=== PATIENT | male | born 1955 | race American Indian/Alaskan Native ===

== ENCOUNTER 2019-09-25 14:48 | Inpatient (IN) | payer OTHER ==
--- NOTE | 2019-09-25 15:18 | Emergency Department Report ---
ED Neuro Deficit HPI - General Chief Complaint: Neuro Symptoms/Deficit Stated Complaint: POSS STROKE Time Seen by Provider: 09/25/19 15:10 Source: patient, EMS Mode of arrival: Stretcher Limitations: Altered Mental Status - History of Present Illness Initial Comments: [facility] Tele[facility]urology Consult Services Date of Service: 09/25/2019 14:44:33 Impression: Rule Out Acute Ischemic Stroke Comments/Sign-Out: Patients clinical features are compatible with diagnosis of acute ischemic stroke. Recommend completing stroke celestin . Pt not in time window for tPA or intervention. CTH suspicious of focal hyperdensity in the left MCA Mechanism of Stroke: Not Clear Metrics: Last Known Well: Unknown [facility] Notification Time: 09/25/2019 14:44:02 Arrival Time: 09/25/2019 14:55:28 Stamp Time: 09/25/2019 14:44:33 Time First Login Attempt: 09/25/2019 14:46:37 Video Start Time: 09/25/2019 14:46:37 Symptoms: rt arm drift, dizziness NIHSS Start Assessment Time: 09/25/2019 15:12:40 Patient is not a candidate for tPA. Patient was not deemed candidate for tPA thrombolytics because of Last Well Known Above 4.5 Hours. Video End Time: 09/25/2019 15:13:21 CT head showed no acute hemorrhage or acute core infarct. Lower Likelihood of Large Vessel Occlusion but Following Stat Studies are Recommended CTA Head and Neck. CT Perfusion. Advanced Imaging to be Reviewed by ED Provider and [facility]. Radiologist was not called back for review of advanced imaging because NA ED Physician notified of diagnostic impression and management plan on 09/25/2019 15:13:18 Our recommendations are outlined below. Recommendations: Activate Stroke Protocol Admission/Order Set Stroke/Telemetry Floor Neuro Checks Bedside Swallow Eval DVT Prophylaxis IV Fluids, Normal Saline Head of Bed 30 Degrees Euglycemia and Avoid Hyperthermia (PRN Acetaminophen) Antiplatelet Therapy Recommended Routine Consultation with Inhouse Neurology for Follow up Care Sign Out: Discussed with Emergency Department Provider History of Present Illness: Patient is a 64 year old Male. Patient was brought by EMS for symptoms of rt arm drift, dizziness Patient seen in ED Pt in transit at time of login Information obtained from EMS and patient h/o HTN, pt has not been taking any medications Chronology: Pt felt dizzy at 11:00 am, and fell from standing postion at the time of EMS arrival pt c/o Rt arm weakness and numbness and slurres speech. EMS noted that pt had a rt arm drift Pt during interview mentions that the rt arm weakness developed >2 days ago LKW >48 hrs Medications: no known meds BP:191/134 Blood glucose: 81 Last seen normal was beyond 4.5 hours of presentation. There is no history of hemorrhagic complications or intracranial hemorrhage. There is no history of Recent Anticoagulants. There is no history of recent major surgery. There is no history of recent stroke. Examination: 1A: Level of Consciousness - Alert; keenly responsive + 0 1B: Ask Month and Age - Both Questions Right + 0 1C: Blink Eyes & Squeeze Hands - Performs Both Tasks + 0 2: Test Horizontal Extraocular Movements - Normal + 0 3: Test Visual Del Real - No Visual Loss + 0 4: Test Facial Palsy (Use Grimace if Obtunded) - Normal symmetry + 0 5A: Test Left Arm Motor Drift - No Drift for 10 Seconds + 0 5B: Test Right Arm Motor Drift - Drift, but doesn't hit bed + 1 6A: Test Left Leg Motor Drift - No Drift for 5 Seconds + 0 6B: Test Right Leg Motor Drift - No Drift for 5 Seconds + 0 7: Test Limb Ataxia (FNF/Heel-Rey) - No Ataxia + 0 8: Test Sensation - Normal; No sensory loss + 0 9: Test Language/Aphasia - Normal; No aphasia + 0 10: Test Dysarthria - Normal + 0 11: Test Extinction/Inattention - No abnormality + 0 NIHSS Score: 1 Patient/Family was informed the Neurology Consult would happen via TeleHealth consult by way of interactive audio and video telecommunications and consented to receiving care in this manner. Due to the immediate potential for life-threatening deterioration due to underlying acute neurologic illness, I spent 35 minutes providing critical care. This time includes time for face to face visit via telemedicine, review of medical records, imaging studies and discussion of findings with providers, the patient and/or family. Dr Dasha Mcfarland [facility] Case [id number] - Related Data Home Medications: Previous Rx's Medication Instructions Recorded Last Taken Type amLODIPine 5 mg PO DAILY 90 Days #90 tab 18 Unknown Rx hydroCHLOROthiazide [HCTZ] 25 mg PO QDAY 90 Days #90 tablet 18 Unknown Rx Allergies/Adverse Reactions: Allergies Allergy/AdvReac Type Severity Reaction Status Date / Time No Known Allergies Allergy Verified 02/05/16 08:57 ED Review of Systems ROS: Stated complaint: POSS STROKE Other details as noted in HPI ED Past Medical Hx - Past Medical History Hx Hypertension: Yes Hx Seizures: Yes - Surgical History Additional Surgical History: Left hand surgery, "tendons" - Social History Smoking Status: Current Every Day Smoker Substance Use Type: Alcohol - Medications Home Medications: Home Medications Medication Instructions Recorded Confirmed Last Taken Type amLODIPine 5 mg PO DAILY 90 Days #90 tab 02/13/18 Unknown Rx hydroCHLOROthiazide [HCTZ] 25 mg PO QDAY 90 Days #90 tablet 02/13/18 Unknown Rx ED Neuro Physical Exam - General Limitations: Altered Mental Status Suspected Stroke: Yes - NIHSS Assessment Interval: 24 hours post onset of symptoms +-20 minutes 1a. Level of Consciousness: alert/keenly responsive 1b. LOC Questions: answers both correctly 1c. LOC Commands: performs tasks correctly 2. Best Gaze: normal 3. Visual: no visual loss 4. Facial Palsy: normal symmetrical movement 5b. Motor Arm Right: drift 5a. Motor Arm Left: no drift 6a. Motor Leg Left: no drift 6b. Motor Leg Right: no drift 7. Limb Ataxia: absent 8. Sensory: normal 9. Best Language: no aphasia 10. Dysarthria: normal 11. Extinction/Inattention: no abnormality Total Score: 1 Stroke Severity: Minor Stroke Critical care attestation.: If time is entered above; I have spent that time in minutes in the direct care of this critically ill patient, excluding procedure time. ED Disposition Clinical Impression: Stroke Disposition: OP ADMIT IP TO THIS HOSP Is pt being admited?: Yes Does the pt Need Aspirin: Yes Condition: Stable Time of Disposition: 15:20
--- NOTE | 2019-09-25 15:19 | Cat Scan Report ---
CT HEAD WITHOUT CONTRAST INDICATION : neuro deficits <6hrs or sx present upon awakening. TECHNIQUE: Axial imaging performed from the skull apex through the skull base without the use of con trast. Sagittal and coronal reformatted images. All CT scans at this location are performed using C T dose reduction for ALARA by means of automated exposure control. COMPARISON: None FINDINGS: Parenchyma: No acute parenchymal abnormality or intracranial hemorrhage is appreciated. Multiple chr onic lacunar infarcts are identified in both basal ganglia and left posterior frontal white matter. I question if there could be minimal hyperdensity in the proximal left MCA on axial image 13 which may represent partial thrombosis. Ventricles: Ventricles are normal in size and appear symmetric. Bones: No acute osseous abnormality. Sinuses: Sinuses and mastoid air cells are clear. Soft tissues: Soft tissues including the orbits appear normal. IMPRESSION: No acute hemorrhage or large acute parenchymal abnormality is appreciated. Chronic lacuna r infarcts as described. Question minimal hyperdensity in the proximal left MCA as described. If furt her imaging is required, MRI could be obtained. These findings were discussed with Dr. Rsoario in the emergency department at 1512 hours EST. Signer Name: Jason Chowdhury Jr, MD Signed: 09/25/2019 3:15 PM Workstation Name: [id number]
--- NOTE | 2019-09-25 15:21 | Emergency Department Report ---
ED Neuro Deficit HPI - General Chief Complaint: Neuro Symptoms/Deficit Stated Complaint: POSS STROKE Time Seen by Provider: 09/25/19 15:10 Source: patient, EMS Mode of arrival: Stretcher Limitations: Altered Mental Status - History of Present Illness Initial Comments: 64-year-old male, history of hypertension, noncompliant with BP meds x2 months, presents to ED with right-sided weakness. Upon initial arrival, EMS reported that patient became symptomatic at 11:30 this morning. Upon speaking with tele- neurologist, it was discovered that patient has actually had right-sided weakness x2 days. Patient reports feeling dizzy this morning. Patient's family came over to check on him and found him on the floor with slurred speech. Patient presents as a stroke alert to the ED. -: days(s) (2) Location: speech, left arm, left leg Presenting Symptoms: Present: Weak/Paralyzed One Side History of same: No Place: home Severity: moderate Quality: weak Improves With: none Worsens With: none On Anticoagulants: No Associated Symptoms: denies other symptoms. denies: chest pain, headaches - Related Data Home Medications: Previous Rx's Medication Instructions Recorded Last Taken Type amLODIPine 5 mg PO DAILY 90 Days #90 tab 02/13/18 Unknown Rx hydroCHLOROthiazide [HCTZ] 25 mg PO QDAY 90 Days #90 tablet 02/13/18 Unknown Rx Allergies/Adverse Reactions: Allergies Allergy/AdvReac Type Severity Reaction Status Date / Time No Known Allergies Allergy Verified 02/05/16 08:57 ED Review of Systems ROS: Stated complaint: POSS STROKE Other details as noted in HPI Comment: All other systems reviewed and negative Constitutional: denies: chills, fever Respiratory: denies: shortness of breath Cardiovascular: denies: chest pain Gastrointestinal: denies: vomiting, diarrhea Neurological: weakness. denies: headache ED Past Medical Hx - Past Medical History Hx Hypertension: Yes Hx Seizures: Yes - Surgical History Additional Surgical History: Left hand surgery, "tendons" - Social History Smoking Status: Current Every Day Smoker Substance Use Type: Alcohol - Medications Home Medications: Home Medications Medication Instructions Recorded Confirmed Last Taken Type amLODIPine 5 mg PO DAILY 90 Days #90 tab 18 Unknown Rx hydroCHLOROthiazide [HCTZ] 25 mg PO QDAY 90 Days #90 tablet 18 Unknown Rx ED Neuro Physical Exam - General Limitations: Altered Mental Status General appearance: alert, in no apparent distress Suspected Stroke: Yes - Head Head exam: Present: atraumatic, normocephalic - Eye Eye exam: Present: normal appearance, EOMI - ENT ENT exam: Present: mucous membranes moist - Neck Neck exam: Present: normal inspection - Respiratory Respiratory exam: Present: normal lung sounds bilaterally. Absent: respiratory distress - Cardiovascular Cardiovascular Exam: Present: regular rate, normal rhythm - GI/Abdominal GI/Abdominal exam: Present: soft. Absent: distended, tenderness - Extremities Exam Extremities exam: Present: normal inspection - Neurological Exam Neurological exam: Present: alert, oriented X3 - NIHSS Assessment Interval: Baseline 1a. Level of Consciousness: alert/keenly responsive 1b. LOC Questions: answers both correctly 1c. LOC Commands: performs tasks correctly 2. Best Gaze: normal 3. Visual: no visual loss 4. Facial Palsy: minor paralysis 5b. Motor Arm Right: drift 5a. Motor Arm Left: no drift 6a. Motor Leg Left: no drift 6b. Motor Leg Right: drift 7. Limb Ataxia: absent 8. Sensory: normal 9. Best Language: no aphasia 10. Dysarthria: normal 11. Extinction/Inattention: no abnormality Total Score: 3 Stroke Severity: Minor Stroke - Psychiatric Psychiatric exam: Present: normal affect, normal mood - Skin Skin exam: Present: warm, dry, intact, normal color ED Course Vital Signs 09/25/19 09/25/19 09/25/19 15:12 15:15 15:22 Temperature 98.2 F Pulse Rate 82 82 Respiratory 14 19 Rate Blood Pressure 209/119 Blood Pressure 209/119 [Right] O2 Sat by Pulse 98 96 98 Oximetry 09/25/19 09/25/19 09/25/19 15:30 15:46 16:00 Temperature Pulse Rate 82 74 74 Respiratory 15 17 15 Rate Blood Pressure 188/125 188/125 190/121 Blood Pressure [Right] O2 Sat by Pulse 97 99 100 Oximetry 09/25/19 18:08 Temperature Pulse Rate 72 Respiratory Rate Blood Pressure 177/107 Blood Pressure [Right] O2 Sat by Pulse Oximetry - Lab Data Result diagrams: 09/25/19 15:07 09/25/19 15:07 Lab Results 09/25/19 09/25/19 09/25/19 Range/Units 15:07 15:07 15:07 WBC 7.6 (4.5-11.0) K/mm3 RBC 4.62 (3.65-5.03) M/mm3 Hgb 13.8 (11.8-15.2) gm/dl Hct 41.4 (35.5-45.6) % MCV 90 (84-94) fl MCH 30 (28-32) pg MCHC 33 (32-34) % RDW 15.8 H (13.2-15.2) % Plt Count 125 L (140-440) K/mm3 Lymph % (Auto) 8.6 L (13.4-35.0) % Warren % (Auto) 6.8 (0.0-7.3) % Eos % (Auto) 4.2 (0.0-4.3) % Baso % (Auto) 0.6 (0.0-1.8) % Lymph # 0.7 L (1.2-5.4) K/mm3 Warren # 0.5 (0.0-0.8) K/mm3 Eos # 0.3 (0.0-0.4) K/mm3 Baso # 0.0 (0.0-0.1) K/mm3 Seg Neutrophils % 79.8 H (40.0-70.0) % Seg Neutrophils # 6.1 (1.8-7.7) K/mm3 PT 14.2 (12.2-14.9) Sec. INR 1.08 (0.87-1.13) APTT 30.0 (24.2-36.6) Sec. Thrombin Time (15.1-19.6) Sec. Sodium 142 (137-145) mmol/L Potassium 4.3 (3.6-5.0) mmol/L Chloride 107.1 H (98-107) mmol/L Carbon Dioxide 22 (22-30) mmol/L Anion Gap 17 mmol/L BUN 9 (9-20) mg/dL Creatinine 1.6 H (0.8-1.5) mg/dL Estimated GFR 53 ml/min BUN/Creatinine Ratio 6 % Glucose 95 (75-100) mg/dL POC Glucose (70-105) Calcium 9.7 (8.4-10.2) mg/dL Troponin T < 0.010 (0.00-0.029) ng/mL 07/28/20 07/28/20 Range/Units 15:07 15:41 WBC (4.5-11.0) K/mm3 RBC (3.65-5.03) M/mm3 Hgb (11.8-15.2) gm/dl Hct (35.5-45.6) % MCV (84-94) fl MCH (28-32) pg MCHC (32-34) % RDW (13.2-15.2) % Plt Count (140-440) K/mm3 Lymph % (Auto) (13.4-35.0) % Warren % (Auto) (0.0-7.3) % Eos % (Auto) (0.0-4.3) % Baso % (Auto) (0.0-1.8) % Lymph # (1.2-5.4) K/mm3 Warren # (0.0-0.8) K/mm3 Eos # (0.0-0.4) K/mm3 Baso # (0.0-0.1) K/mm3 Seg Neutrophils % (40.0-70.0) % Seg Neutrophils # (1.8-7.7) K/mm3 PT (12.2-14.9) Sec. INR (0.87-1.13) APTT (24.2-36.6) Sec. Thrombin Time 17.8 (15.1-19.6) Sec. Sodium (137-145) mmol/L Potassium (3.6-5.0) mmol/L Chloride (98-107) mmol/L Carbon Dioxide (22-30) mmol/L Anion Gap mmol/L BUN (9-20) mg/dL Creatinine (0.8-1.5) mg/dL Estimated GFR ml/min BUN/Creatinine Ratio % Glucose (75-100) mg/dL POC Glucose 87 (70-105) Calcium (8.4-10.2) mg/dL Troponin T (0.00-0.029) ng/mL - EKG Data -: EKG Interpreted by Co EKG shows normal: sinus rhythm, axis, intervals, QRS complexes Rate: normal Interpretation: other (T wave inversions V3-6, I, II, aVL) - Radiology Data Radiology results: report reviewed, image reviewed - Medical Decision Making 64-year-old male with acute CVA with right-sided deficits. Patient presented outside the window for TPA or any interventional procedure. CT head was unremarkable. Blood pressure elevated, labetalol was given. Patient will be admitted by Dr. Booth, hospitalist, for further stroke work-up. - Differential Diagnosis Hemorrhagic CVA, ischemic CVA, seizure Critical care attestation.: If time is entered above; I have spent that time in minutes in the direct care of this critically ill patient, excluding procedure time. ED Disposition Clinical Impression: Stroke, Uncontrolled hypertension Disposition: OP ADMIT IP TO THIS HOSP Is pt being admited?: Yes Condition: Stable Time of Disposition: 16:16
[2019-09-25] MEDS ORDERED: ASPIRIN 325 MG TAB PO ONE (15:35)
[2019-09-25 15:45] LABS: BUN/Creatinine Ratio 6; Blood Urea Nitrogen 9 mg/dL (9-20); Calcium 9.7 mg/dL (8.4-10.2); Hemolysis Index 3
[2019-09-25 15:49] LABS: Basophils % (Auto) 0.6 % (0.0-1.8); Eosinophils # (Auto) 0.3 K/mm3 (0.0-0.4); Eosinophils % (Auto) 4.2 % (0.0-4.3); Hematocrit 41.4 % (35.5-45.6); Hemoglobin 13.8 gm/dl (11.8-15.2); Lymphocytes # (Auto) 0.7 K/mm3 (1.2-5.4); Lymphocytes % (Auto) 8.6 % (13.4-35.0); Mean Corpuscular HGB Conc 33 % (32-34); Mean Corpuscular Volume 90 fl (84-94); Monocytes # (Auto) 0.5 K/mm3 (0.0-0.8); Monocytes % (Auto) 6.8 % (0.0-7.3); Platelet Count 125 K/mm3 (140-440); Red Blood Count 4.62 M/mm3 (3.65-5.03); Red Cell Distribution Width 15.8 % (13.2-15.2)
--- NOTE | 2019-09-25 16:09 | XRay Report ---
CHEST 1 VIEW INDICATION: weakness. COMPARISON: None FINDINGS: Support devices: None. Heart: Within normal limits. Lungs/Pleura: No acute air space or interstitial disease. Additional findings: None. IMPRESSION: No acute findings. Signer Name: Jason Chowdhury Jr, MD Signed: 09/25/2019 4:04 PM Workstation Name: [id number]
[2019-09-25 16:14] LABS: INR 1.08 (0.87-1.13)
--- NOTE | 2019-09-25 23:55 | History and Physical Report ---
History of Present Illness Date of examination: 09/25/19 Date of admission: 09/25/19 16:17 Chief complaint: Rt sided weakness 2 days History of present illness: 64-year-old male with history of hypertension noncompliant with his blood pressure medication comes in for right-sided weakness of 2 days duration. Patient reports feeling dizzy this morning. Patient family checked on him today and found him on the floor with slurred speech and right-sided weakness. This happened 48 hours ago. Patient is outside the window for TPA. Patient has persistent right-sided weakness. - Past Medical History Hx Hypertension: Yes Hx Seizures: Yes - Surgical History Additional Surgical History: Left hand surgery, "tendons" - Social History Smoking Status: Current Every Day Smoker Substance Use Type: Alcohol - Medications Home Medications: Family History Htn Home Medications Medication Instructions Recorded Confirmed Last Taken Type amLODIPine 5 mg PO DAILY 90 Days #90 tab 02/13/18 Unknown Rx hydroCHLOROthiazide [HCTZ] 25 mg PO QDAY 90 Days #90 tablet 02/13/18 Unknown Rx Review of Systems ROS: Stated complaint: POSS STROKE Other details as noted in HPI Comment: All other systems reviewed and negative Constitutional: denies: chills, fever Respiratory: denies: shortness of breath Cardiovascular: denies: chest pain Gastrointestinal: denies: vomiting, diarrhea Neurological: weakness. denies: headache Medications and Allergies Allergies Allergy/AdvReac Type Severity Reaction Status Date / Time No Known Allergies Allergy Verified 02/05/16 08:57 Home Medications Medication Instructions Recorded Confirmed Last Taken Type amLODIPine 5 mg PO DAILY 90 Days #90 tab 02/13/18 09/26/19 Unknown Rx hydroCHLOROthiazide [HCTZ] 25 mg PO QDAY 90 Days #90 tablet 02/13/18 09/26/19 Unknown Rx Exam - Constitutional Vitals: Temp Pulse Resp BP Pulse Ox 98.2 F 60 18 187/107 95 09/25/19 23:22 09/25/19 23:26 09/25/19 23:22 09/25/19 23:26 09/25/19 23:22 General appearance: Present: no acute distress, well-nourished - EENT Eyes: Present: PERRL ENT: hearing intact, clear oral mucosa - Neck Neck: Present: supple, normal ROM - Respiratory Respiratory effort: normal Respiratory: bilateral: CTA - Cardiovascular Heart rate: 78 Heart Sounds: Present: S1 & S2. Absent: rub, click - Extremities Extremities: pulses symmetrical, No edema Peripheral Pulses: within normal limits - Abdominal General gastrointestinal: Present: soft, non-tender, non-distended, normal bowel sounds Male genitourinary: Present: normal - Integumentary Integumentary: Present: clear, warm, dry - Musculoskeletal Musculoskeletal: strength equal bilaterally, right sided weakness - Psychiatric Psychiatric: appropriate mood/affect, intact judgment & insight - Neurologic Neurologic: CNII-XII intact, focal deficits (Rt hemiplegia), moves all extremities HEART Score - HEART Score History: Moderately suspicious Age: 45-65 Troponin: Troponin T < 0.010 ng/mL (0.00-0.029) 09/25/19 15:07 - Critical Actions Critical Actions: 4-6 pts:12-16.6% risk of adverse cardiac event. Should be admitted Results - Labs CBC & Chem 7: 09/25/19 15:07 09/25/19 15:07 Labs: Laboratory Last Values WBC 7.6 K/mm3 (4.5-11.0) 09/25/19 15:07 RBC 4.62 M/mm3 (3.65-5.03) 09/25/19 15:07 Hgb 13.8 gm/dl (11.8-15.2) 09/25/19 15:07 Hct 41.4 % (35.5-45.6) 09/25/19 15:07 MCV 90 fl (84-94) 09/25/19 15:07 MCH 30 pg (28-32) 09/25/19 15:07 MCHC 33 % (32-34) 09/25/19 15:07 RDW 15.8 % (13.2-15.2) H 09/25/19 15:07 Plt Count 125 K/mm3 (140-440) L 09/25/19 15:07 Lymph % (Auto) 8.6 % (13.4-35.0) L 09/25/19 15:07 Douglas % (Auto) 6.8 % (0.0-7.3) 09/25/19 15:07 Eos % (Auto) 4.2 % (0.0-4.3) 09/25/19 15:07 Baso % (Auto) 0.6 % (0.0-1.8) 09/25/19 15:07 Lymph # 0.7 K/mm3 (1.2-5.4) L 09/25/19 15:07 Douglas # 0.5 K/mm3 (0.0-0.8) 09/25/19 15:07 Eos # 0.3 K/mm3 (0.0-0.4) 09/25/19 15:07 Baso # 0.0 K/mm3 (0.0-0.1) 09/25/19 15:07 Seg Neutrophils % 79.8 % (40.0-70.0) H 09/25/19 15:07 Seg Neutrophils # 6.1 K/mm3 (1.8-7.7) 09/25/19 15:07 PT 14.2 Sec. (12.2-14.9) 09/25/19 15:07 INR 1.08 (0.87-1.13) 09/25/19 15:07 APTT 30.0 Sec. (24.2-36.6) 09/25/19 15:07 Thrombin Time 17.8 Sec. (15.1-19.6) 09/25/19 15:07 Sodium 142 mmol/L (137-145) 09/25/19 15:07 Potassium 4.3 mmol/L (3.6-5.0) 09/25/19 15:07 Chloride 107.1 mmol/L (98-107) H 09/25/19 15:07 Carbon Dioxide 22 mmol/L (22-30) 09/25/19 15:07 Anion Gap 17 mmol/L 09/25/19 15:07 BUN 9 mg/dL (9-20) 09/25/19 15:07 Creatinine 1.6 mg/dL (0.8-1.5) H 09/25/19 15:07 Estimated GFR 53 ml/min 09/25/19 15:07 BUN/Creatinine Ratio 6 % 09/25/19 15:07 Glucose 95 mg/dL (75-100) 09/25/19 15:07 POC Glucose 87 (70-105) 09/25/19 15:41 Calcium 9.7 mg/dL (8.4-10.2) 09/25/19 15:07 Troponin T < 0.010 ng/mL (0.00-0.029) 09/25/19 15:07 - Imaging and Cardiology EKG: report reviewed (Normal sinus rhythm no acute ST-T wave changes) Chest x-ray: report reviewed (NAF) CT Scan - head: report reviewed (Chronic infarcts) Assessment and Plan Advance Directives: Yes (Full code) VTE prophylaxis?: Chemical Plan of care discussed with patient/family: Yes - Patient Problems (1) Acute CVA (cerebrovascular accident) Current Visit: Yes Status: Acute Plan to address problem: Stroke work-up MRI carotid duplex scan and echocardiogram Neurology consult requested Aspirin 325 mg p.o. daily initiated (2) Uncontrolled hypertension Current Visit: Yes Status: Acute Plan to address problem: Adjust blood pressure medications (3) DVT prophylaxis Current Visit: Yes Status: Acute Plan to address problem: On heparin and GI prophylaxis
[2019-09-25] MEDS ORDERED: HYDROmorphone 1 MG/1 ML INJ IV PRN (23:57)
[2019-09-25] MEDS ORDERED: oxyCODONE /ACETAMINOPHEN 5-325MG TAB PO PRN (23:57)
[2019-09-25] MEDS ORDERED: ONDANSETRON 4 MG/2 ML INJ IV PRN (23:57)
[2019-09-25] MEDS ORDERED: ACETAMINOPHEN 325 MG TAB PO PRN (23:57)
[2019-09-26] MEDS ORDERED: ASPIRIN 325 MG TAB PO SCH (10:00)
[2019-09-26] MEDS: amLODIPine 5 MG TAB PO SCH (10:09)
[2019-09-26] MEDS: hydroCHLOROthiazide 25 MG TAB PO SCH (10:10)
--- NOTE | 2019-09-26 10:28 | Magnetic Resonance Report ---
MR brain wo con INDICATION / CLINICAL INFORMATION: 64 years Male; MAIN. TECHNIQUE: Multiplanar, multisequence MR images of the brain were obtained. Motion artifact present COMPARISON: CT-09/25/2019 FINDINGS: BRAIN / INTRACRANIAL CONTENTS: Small focus of ischemia is seen near the globus pallidus region on the right and perhaps in the anterior thalamic region. There is also an acute, small corpus striatal inf arct on the left involving the posterior body of the caudate, extending to the posterior putamen. The se findings are positive on ADC map. Mild cerebral and cerebellar atrophy. There are mild areas of increased signal intensity on FLAIR imaging in the white matter of the cerebr al hemispheres, as well as more extensive involvement in the gangliocapsular regions. These are nonsp ecific findings and may be related to microangiopathy (hypertension, diabetes, atherosclerosis), give n the patient's age. Otherwise, no acute ischemia, acute hemorrhage, or hydrocephalus. CRANIOCERVICAL JUNCTION: No significant abnormality. VASCULAR FLOW-VOIDS: No significant abnormality. ORBITS: No significant abnormality of visualized orbits. SINUSES / MASTOIDS: No significant abnormality in the visualized paranasal sinuses or mastoid air rosa ls. ADDITIONAL FINDINGS: None. IMPRESSION: 1. Small areas of acute/early subacute ischemia in the gangliocapsular regions bilaterally, as descri bed above. Signer Name: Cirilo Goldberg MD, III Signed: 09/26/2019 10:24 AM Workstation Name: [id number]
--- NOTE | 2019-09-26 10:30 | Consultation ---
History of Present Illness Consult date: 09/26/19 Reason for Consult: Right sided weakness/numbness, slurred speech Chief complaint: Right sided weakness/numbness, slurred speech History of present illness: Patient is a 64 y/o man w/ a h/o HTN. He is not compliant with medication at home. He began to feel dizzy at around 11am yesterday, and fell from a standing position. When EMS arrived, patient was noted to have RUE weakness/numbness and slurred speech. He stated that RUE weakness began 3 days ago. He was found to have elevated BP, with SBP >200. Past History Past Medical History: hypertension Social history: smoking, other (One beer per day) Family history: no significant family history Medications and Allergies Allergies Allergy/AdvReac Type Severity Reaction Status Date / Time No Known Allergies Allergy Verified 02/05/16 08:57 Home Medications Medication Instructions Recorded Confirmed Last Taken Type amLODIPine 5 mg PO DAILY 90 Days #90 tab 02/13/18 09/26/19 Unknown Rx hydroCHLOROthiazide [HCTZ] 25 mg PO QDAY 90 Days #90 tablet 02/13/18 09/26/19 Unknown Rx Active Meds: Active Medications Acetaminophen (Tylenol) 650 mg PO Q4H PRN PRN Reason: Pain MILD(1-3)/Fever >100.5/REED Amlodipine Besylate (Amlodipine) 5 mg PO DAILY [facility] Last Admin: 09/26/19 10:09 Dose: 5 mg Documented by: Aspirin (Aspirin) 325 mg PO QDAY [facility] Last Admin: 09/26/19 10:10 Dose: 325 mg Documented by: Atorvastatin Calcium (Lipitor) 80 mg PO QHS [facility] Hydrochlorothiazide (Hctz) 25 mg PO QDAY [facility] Last Admin: 09/26/19 10:10 Dose: 25 mg Documented by: Hydromorphone HCl (Dilaudid) 0.5 mg IV Q3H PRN PRN Reason: Pain , Severe (7-10) Ondansetron HCl (Zofran) 4 mg IV Q8H PRN PRN Reason: Nausea And Vomiting Oxycodone/Acetaminophen (Percocet 5/325) 1 tab PO Q6H PRN PRN Reason: Pain, Moderate (4-6) Sodium Chloride (Sodium Chloride Flush Syringe 10 Ml) 10 ml IV BID [facility] Last Admin: 09/26/19 10:10 Dose: 10 ml Documented by: Sodium Chloride (Sodium Chloride Flush Syringe 10 Ml) 10 ml IV PRN PRN PRN Reason: LINE FLUSH Sodium Chloride (Sodium Chloride Flush Syringe 10 Ml) 10 ml IV PRN PRN PRN Reason: LINE FLUSH Review of Systems All systems: negative Neurological: weakness, numbness, change in speech Physical Examination - Vital Signs Vital Signs: Vital Signs Pulse Ox 98 09/25/19 15:12 - Physical Exam Narrative exam: Patient is alert, awake, oriented x4, follows complex commands. No dysarthria or aphasia noted. PERRL, EOMI, VFF, tongue midline, bilaterally intact to LT, no facial weakness noted. 5/5 strength in LUE/LLE, 3+/5 in RUE, 4/5 RLE. Bilaterally intact light touch. Difficulty with HTN and FTN due to Rt. weakness. - Level of Consciousness 1a. Level of Consciousness: alert/keenly responsive - LOC Questions 1b. LOC Questions: answers both correctly - LOC Command 1c. LOC Commands: performs tasks correctly - Best Gaze 2. Best Gaze: normal - Visual 3. Visual: no visual loss - Facial Palsy 4. Facial Palsy: normal symmetrical movement - Motor Arm 5a. Motor Arm Left: no drift 5b. Motor Arm Right: drift - Motor Leg 6a. Motor Leg Left: no drift 6b. Motor Leg Right: drift - Limb Ataxia 7. Limb Ataxia: absent - Sensory 8. Sensory: normal - Best Language 9. Best Language: no aphasia - Dysarthria 10. Dysarthria: normal - Extinction and Inattention 11. Extinction/Inattention: no abnormality - Scoring Total Score: 2 Stroke Severity: Minor Stroke Results - Laboratory Findings CBC and BMP: 09/25/19 15:07 09/25/19 15:07 Abnormal Lab Findings: Abnormal Labs 09/25/19 09/25/19 15:07 15:07 RDW 15.8 H Plt Count 125 L Lymph % (Auto) 8.6 L Lymph # 0.7 L Seg Neutrophils % 79.8 H Chloride 107.1 H Creatinine 1.6 H Assessment and Plan Patient is a 64 y/o man w/ a h/o HTN, who p/w Rt. sided weakness/numbness and slurred speech. According to the patient's clinical findings, it is likely that he has had a stroke. Plan: 1. Stroke: - MRI brain: Noted to have b/l subcortical acute infarcts. - MRA head/neck: Noted to have significant intracranial atherosclerosis of Rt. MCA. - CT head: No acute infarct noted. Left MCA hyperdensity noted. - Echo: Pending - Recommend dual antiplatelet therapy with aspirin 81 mg daily and Plavix 75 mg daily for 90 days (based on [facility] protocol), after which Plavix can be stopped. Discussed risks and benefits of dual antiplatelet therapy with patient, including intracranial hemorrhage as well as bleeding at other sites, and patient agreed to take this. - Recommend for patient to stop smoking. - Cont. statin. LDL goal <70 - Telemetry monitoring while in house - PT/OT/ST - DVT Ppx: Recommend lovenox - Etiology is intracranial atherosclerosis vs. cryptogenic, given b/l subcortical infarcts. Recommend for patient to have long-term cardiac monitoring as outpatient with cardiology with 30-day MCOT or ILR. 2. Hypertension: - Recommend BP goal of <220/120 to allow for permissive HTN for first 24-48 hours. Can target normotension after that. - Will continue to monitor patient. Thank you for allowing me to take part in the care of this patient. Twan Escalera MD Neurology This clinical encounter was provided via live telemedicine platform. Consultative service was provided for neurology to support local providers. The Acute Teleneurology team should be contacted with any neurologic worsening or clinical changes, new test results, or new patient history that is reported to or discovered by the local team following completion of the teleneurology consultation, specifically that which has the potential to impact the consultative recommendations. Patient/Family was informed the Neurology Consult would happen via TeleHealth consult by way of interactive audio and video telecommunications and consented to receiving care in this manner. Due to the potential for life-threatening deterioration due to underlying neurologic illness, and limited resources available for patient care, telemedic ine was used as means of patient care. Telemedicine consultation is limited in the extent of physical exam that can be virtually provided. Time spent evaluating patient includes time for face to face visit via telemedicine, review of medical records, imaging studies and discussion of findings with providers, the patient and/or family.
--- NOTE | 2019-09-26 13:31 | Magnetic Resonance Report ---
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 TECHNIQUE: 3-D time of flight. NASCET type criteria used to evaluate stenoses. Some degree of motion artifact is present. COMPARISON: None available. FINDINGS: INTERNAL CAROTID ARTERIES: Focal areas of [id number] narrowing are seen in the cavernous portio n of the right internal carotid artery-anterior genu region. The left internal carotid artery is wide ly patent. VERTEBROBASILAR SYSTEM: No significant narrowing appreciated. DISTAL BRANCHES: The A1 segment on the right is hypoplastic-normal variant. Focal areas of mild narrowing are seen in the M1 segment on the right. There are also focal areas of moderate to high-grade narrowing in the proximal MCA trifurcation vessels on the right. Focal areas of moderate to high-grade narrowing are seen in the right posterior cerebral artery proxi sky. Mild areas of narrowing seen more distally in both RN ADMISSIONS territories. Finally, there are focal areas of moderate narrowing in the mid to distal anterior cerebral arteries bilaterally. ANEURYSM: None identified. IMPRESSION: Multiple areas of narrowing identified, as described above. Signer Name: Cirilo Goldberg MD, III Signed: 09/26/2019 1:26 PM Workstation Name: [id number]
--- NOTE | 2019-09-26 13:40 | Magnetic Resonance Report ---
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 TECHNIQUE: 2-D time of flight performed prior to contrast. NASCET criteria used for stenosis evaluati on. COMPARISON: None available. FINDINGS: ARCH: Aortic arch and proximal great vessels are not well visualized on this exam. CAROTID ARTERIES: The visualized common and internal carotid arteries are widely patent. Mild narrowi ng seen at the origins of both internal carotid arteries-not felt to be hemodynamically significant. VERTEBRAL ARTERIES: Codominant vertebral system seen. No significant stenosis appreciated. IMPRESSION: No significant stenosis appreciated on this unenhanced MRA of the neck. Signer Name: Cirilo Goldberg MD, III Signed: 09/26/2019 1:35 PM Workstation Name: [id number]
--- NOTE | 2019-09-26 14:21 | Vascular Lab Report ---
"DUPLEX DOPPLER ULTRASOUND CAROTID, BILATERAL INDICATION: stroke. COMPARISON: None available. FINDINGS: RIGHT CAROTID: No significant atherosclerotic plaque. CCA velocity: 52 cm/sec. ICA peak systolic velocity: 78 cm/sec. ICA/CCA PSV Ratio: 1.1. Right Vertebral Artery: 1.5 LEFT CAROTID: No significant atherosclerotic plaque. CCA velocity: 63 cm/sec. ICA peak systolic velocity: 63 cm/sec. ICA/CCA PSV Ratio: Less than 1. Left Vertebral Artery: Antegrade flow. IMPRESSION: 1. Right Internal Carotid Artery: Less than 50% diameter stenosis. 2. Left Internal Carotid Artery: Less than 50% diameter stenosis. Velocity criteria are extrapolated from diameter data as defined by the Society of Radiologists in Ul trasound Consensus Conference, Radiology 2003; 229;340-346. Degree of || ICA PSV || Plaque || ICA/CCA Stenosis (%) || (cm/sec) || estimate (%) || PSV Ratio - Normal...............<125..............None.................<2.0 - <50....................<125..............<50....................<2.0 - 50-69................125-230.........>50....................2.0-4.0 - >70 but <100....>230..............>50....................>4.0 - Near...................High, low, .....visible................variable occlusion or none - Total...................None.............visible;................N/A occlusion no lumen Signer Name: Ja Bello MD Signed: 09/26/2019 2:17 PM Workstation Name: [id number]"
[2019-09-26] MEDS ORDERED: hydrALAZINE 20 MG/1 ML INJ IV ONE (22:30)
[2019-09-27] MEDS ORDERED: hydrALAZINE 20 MG/1 ML INJ IV ONE ×2 (02:10→23:49)
[2019-09-27 08:02] LABS: Basophils # (Auto) 0.1 K/mm3 (0.0-0.1); Basophils % (Auto) 0.7 % (0.0-1.8); Eosinophils # (Auto) 0.6 K/mm3 (0.0-0.4); Eosinophils % (Auto) 6.4 % (0.0-4.3); Hemoglobin 15.3 gm/dl (11.8-15.2); Lymphocytes # (Auto) 1.1 K/mm3 (1.2-5.4); Lymphocytes % (Auto) 11.7 % (13.4-35.0); Mean Corpuscular HGB Conc 34 % (32-34); Mean Corpuscular Volume 90 fl (84-94); Monocytes # (Auto) 0.6 K/mm3 (0.0-0.8); Monocytes % (Auto) 6.9 % (0.0-7.3); Platelet Count 130 K/mm3 (140-440); Red Blood Count 5.03 M/mm3 (3.65-5.03); Red Cell Distribution Width 16.7 % (13.2-15.2)
[2019-09-27 08:23] LABS: Alanine Aminotransferase 12 units/L (7-56); Albumin 4.1 g/dL (3.9-5); BUN/Creatinine Ratio 9; Blood Urea Nitrogen 13 mg/dL (9-20); Calcium 9.7 mg/dL (8.4-10.2); Chol/HDL Ratio 3.71 %; HDL Cholesterol 60 mg/dL (40-59); Hemolysis Index 29; LDL Cholesterol,Direct 149 mg/dL (50-130)
[2019-09-27] MEDS: amLODIPine 5 MG TAB PO SCH (09:22)
[2019-09-27] MEDS: ASPIRIN EC 81 MG TAB PO SCH (09:22)
[2019-09-27] MEDS: CLOPIDOGREL 75 MG TAB PO SCH (09:22)
[2019-09-27] MEDS: hydroCHLOROthiazide 25 MG TAB PO SCH (09:22)
--- NOTE | 2019-09-27 13:31 | Progress Note ---
Assessment and Plan Patient is a 64 y/o man w/ a h/o HTN, who p/w Rt. sided weakness/numbness and slurred speech. According to the patient's clinical findings, it is likely that he has had a stroke. Plan: 1. Stroke: - MRI brain: Noted to have b/l subcortical acute infarcts. - MRA head/neck: Noted to have significant intracranial atherosclerosis of Rt. MCA. - CT head: No acute infarct noted. Left MCA hyperdensity noted. - Repeat CT head today, as patient has increased weakness on RUE/RLE. Likely evoulution of infarct, however will need to rule out hemorrhagic transformation. - Echo: EF 50-55%, LA normal size, bubble study negative. - Recommend dual antiplatelet therapy with aspirin 81 mg daily and Plavix 75 mg daily for 90 days (based on [facility] protocol), after which Plavix can be stopped. Discussed risks and benefits of dual antiplatelet therapy with patient, including intracranial hemorrhage as well as bleeding at other sites, and patient agreed to take this. - Recommend for patient to stop smoking. - Cont. statin. LDL goal <70 - Telemetry monitoring while in house - PT/OT/ST - DVT Ppx: Recommend lovenox - Etiology is intracranial atherosclerosis vs. cryptogenic, given b/l subcortical infarcts. Recommend for patient to have long-term cardiac monitoring as outpatient with cardiology with 30-day MCOT or ILR. 2. Hypertension: - Recommend BP goal of <220/120 to allow for permissive HTN for first 24-48 hours. Can target normotension after that. - Will continue to monitor patient. Thank you for allowing me to take part in the care of this patient. Twan Escalera MD Neurology This clinical encounter was provided via live telemedicine platform. Consultative service was provided for neurology to support local providers. The Acute Teleneurology team should be contacted with any neurologic worsening or clinical changes, new test results, or new patient history that is reported to or discovered by the local team following completion of the teleneurology consultation, specifically that which has the potential to impact the consultative recommendations. Patient/Family was informed the Neurology Consult would happen via TeleHealth consult by way of interactive audio and video telecommunications and consented to receiving care in this manner. Due to the potential for life-threatening deterioration due to underlying neurologic illness, and limited resources available for patient care, telemedicine was used as means of patient care. Telemedicine consultation is limited in the extent of physical exam that can be virtually provided. Time spent evaluating patient includes time for face to face visit via telemedicine, review of medical records, imaging studies and discussion of findings with providers, the patient and/or family. Subjective Date of service: 09/27/19 Principal diagnosis: Stroke Interval history: No acute events overnight. Objective - Exam Narrative Exam: Patient is alert, awake, oriented x4, follows complex commands. No dysarthria or aphasia noted. PERRL, EOMI, VFF, tongue midline, bilaterally intact to LT, no facial weakness noted. 5/5 strength in LUE/LLE, 3+/5 in RUE, 2/5 RLE. Bilaterally intact light touch. Difficulty with HTN and FTN due to Rt. weakness. - Vital Sign Vital Signs - 12hr 09/27/19 09/27/19 09/27/19 01:35 01:54 05:40 Temperature 97.7 F 97.8 F Pulse Rate 68 68 89 Pulse Rate [ Apical] Respiratory 18 20 Rate Blood Pressure 194/119 194/119 175/115 O2 Sat by Pulse 100 100 Oximetry 09/27/19 09/27/19 09/27/19 07:38 08:03 09:22 Temperature 98.5 F Pulse Rate 59 L 87 Pulse Rate [ Apical] Respiratory 18 Rate Blood Pressure 168/106 160/78 O2 Sat by Pulse 100 100 Oximetry 09/27/19 09/27/19 10:00 11:45 Temperature 98.9 F Pulse Rate 78 Pulse Rate [ 81 Apical] Respiratory 17 18 Rate Blood Pressure 172/113 O2 Sat by Pulse 96 100 Oximetry - Laboratory Findings CBC and BMP: 09/27/19 07:24 09/27/19 07:24 Abnormal Lab Findings: Abnormal Labs 09/25/19 09/25/19 09/27/19 15:07 15:07 07:24 Hgb 15.3 H RDW 15.8 H 16.7 H Plt Count 125 L 130 L Lymph % (Auto) 8.6 L 11.7 L Eos % (Auto) 6.4 H Lymph # 0.7 L 1.1 L Eos # 0.6 H Seg Neutrophils % 79.8 H 74.3 H Sodium Chloride 107.1 H Carbon Dioxide Creatinine 1.6 H Glucose Cholesterol LDL Cholesterol Direct HDL Cholesterol 09/27/19 07:24 Hgb RDW Plt Count Lymph % (Auto) Eos % (Auto) Lymph # Eos # Seg Neutrophils % Sodium 136 L Chloride Carbon Dioxide 21 L Creatinine Glucose 110 H Cholesterol 223 H LDL Cholesterol Direct 149 H HDL Cholesterol 60 H
[2019-09-27] MEDS ORDERED: hydrALAZINE 20 MG/1 ML INJ IV STA (13:40)
--- NOTE | 2019-09-27 15:45 | Cat Scan Report ---
CT BRAIN: 09/27/2019 INDICATION / CLINICAL INFORMATION: Stroke. Rule out hemorrhagic transformation.. COMPARISON: MRI brain 09/26/2019. CT brain 09/25/2019 FINDINGS: BRAIN/INTRACRANIAL STRUCTURES: Unenhanced CT images of the brain demonstrate no evidence of acute abn ormality. Ventricles and sulci are prominent in size. Basal ganglia and white matter lacunar changes are noted. The subtle areas of ischemic change seen on the MRI from 09/26/2019 oh difficult to visuali ze by CT. There is no evidence of superimposed large vessel territory ischemic injury, hemorrhage, or mass. The re are no abnormal extra-axial fluid collections. EXTRACRANIAL STRUCTURES: Unremarkable. IMPRESSION: No evidence of acute superimposed abnormality. No evidence of hemorrhage. Chronic and age-related changes, stable when compared to prior exam. All CT scans at this location are performed using dose reduction to ALARA by means of automated expos ure control. Signer Name: Berhane Davies MD Signed: 09/27/2019 3:41 PM Workstation Name: [id number]
[2019-09-28] MEDS: CLOPIDOGREL 75 MG TAB PO SCH (10:12)
[2019-09-28] MEDS: ASPIRIN EC 81 MG TAB PO SCH (10:12)
[2019-09-28] MEDS: amLODIPine 5 MG TAB PO SCH (10:12)
[2019-09-28] MEDS: hydroCHLOROthiazide 25 MG TAB PO SCH (10:12)
--- NOTE | 2019-09-28 13:00 | Discharge Summary ---
Providers - Providers Date of Admission: 09/25/19 16:17 Date of discharge: 09/28/19 Attending physician: REZA JIMENEZ 09/25/19 23:57 Consult to Physician [CONS] Routine Comment: Consulting Provider: GREGORIO CURRY Physician Instructions: Reason For Exam: Acute CVA 09/26/19 00:01 Occupational Therapy Evaluate and Treat [CONS] Routine Comment: Reason For Exam: Neuro deficits Physical Therapy Evaluation and Treat [CONS] Routine Comment: Reason For Exam: Neuro deficits Primary care physician: [employer] Hospitalization Condition: Stable Hospital course: 64-year-old male with history of hypertension noncompliant with his blood pressure medication comes in for right-sided weakness of 2 days duration. Patient reports feeling dizzy this morning. Patient family checked on him today and found him on the floor with slurred speech and right-sided weakness. This happened 48 hours ago. Patient is outside the window for TPA. Patient has persistent right-sided weakness. Some improvement Acute Cva MRI brain: Noted to have b/l subcortical acute infarcts. - MRA head/neck: Noted to have significant intracranial atherosclerosis of Rt. MCA. - CT head: No acute infarct noted. Left MCA hyperdensity noted. - Repeat CT head: evolution of infarct, no evidence of hemorrhagic transformation. - Echo: EF 50-55%, LA normal size, bubble study negative. - Recommend dual antiplatelet therapy with aspirin 81 mg daily and Plavix 75 mg daily for 90 days (based on [facility] protocol), after which Plavix can be stopped. Discussed risks and benefits of dual antiplatelet therapy with patient, including intracranial hemorrhage as well as bleeding at other sites, and patient agreed to take this. - Recommend for patient to stop smoking. - Cont. statin. LDL goal <70 - Telemetry monitoring while in house - PT/OT/ST - DVT Ppx: Recommend lovenox - Etiology is intracranial atherosclerosis vs. cryptogenic, given b/l subcort ical infarcts. Recommend for patient to have long-term cardiac monitoring as outpatient with cardiology with 30-day MCOT or ILR. 2. Hypertension: Discharged on Amlodipine and Vaksartan - Disposition: DC-01 TO HOME OR SELFCARE - Discharge Diagnoses (1) Acute CVA (cerebrovascular accident) Status: Acute (2) Uncontrolled hypertension Status: Acute (3) DVT prophylaxis Status: Acute Core Measure Documentation - Palliative Care Palliative Care/ Comfort Measures: Not Applicable - Core Measures Any of the following diagnoses?: none Exam - Constitutional Vitals: Temp Pulse Resp BP Pulse Ox 98.6 F 85 20 164/106 98 09/28/19 09:03 09/28/19 10:00 09/28/19 09:03 09/28/19 09:03 09/28/19 09:03 General appearance: Present: no acute distress, well-nourished - EENT Eyes: Present: PERRL ENT: hearing intact, clear oral mucosa - Neck Neck: Present: supple, normal ROM - Respiratory Respiratory effort: normal Respiratory: bilateral: CTA - Cardiovascular Heart Sounds: Present: S1 & S2. Absent: rub, click - Extremities Extremities: pulses symmetrical, No edema Peripheral Pulses: within normal limits - Abdominal General gastrointestinal: Present: soft, non-tender, non-distended, normal bowel sounds Male genitourinary: Present: normal - Integumentary Integumentary: Present: clear, warm, dry - Musculoskeletal Musculoskeletal: gait normal, strength equal bilaterally - Psychiatric Psychiatric: appropriate mood/affect, intact judgment & insight - Neurologic Neurologic: CNII-XII intact, moves all extremities Plan Follow up with: PRIMARY CARE, [Primary Care Provider] - 7 Days Prescriptions: amLODIPine 10 mg PO DAILY #30 tablet Aspirin EC [Halfprin EC] 81 mg PO QDAY #30 tablet AtorvaSTATin [Lipitor] 80 mg PO QHS #30 tablet Clopidogrel [Plavix] 75 mg PO QDAY #30 tablet Valsartan 80 mg PO QDAY #30 tablet
--- NOTE | 2019-09-28 14:06 | Progress Note ---
Assessment and Plan Patient is a 64 y/o man w/ a h/o HTN, who p/w Rt. sided weakness/numbness and slurred speech. According to the patient's clinical findings, it is likely that he has had a stroke. Plan: 1. Stroke: - MRI brain: Noted to have b/l subcortical acute infarcts. - MRA head/neck: Noted to have significant intracranial atherosclerosis of Rt. MCA. - CT head: No acute infarct noted. Left MCA hyperdensity noted. - Repeat CT head: evolution of infarct, no evidence of hemorrhagic transformation. - Echo: EF 50-55%, LA normal size, bubble study negative. - Recommend dual antiplatelet therapy with aspirin 81 mg daily and Plavix 75 mg daily for 90 days (based on [facility] protocol), after which Plavix can be stopped. Discussed risks and benefits of dual antiplatelet therapy with patient, including intracranial hemorrhage as well as bleeding at other sites, and patient agreed to take this. - Recommend for patient to stop smoking. - Cont. statin. LDL goal <70 - Telemetry monitoring while in house - PT/OT/ST - DVT Ppx: Recommend lovenox - Etiology is intracranial atherosclerosis vs. cryptogenic, given b/l subcortical infarcts. Recommend for patient to have long-term cardiac monitoring as outpatient with cardiology with 30-day MCOT or ILR. 2. Hypertension: - Recommend BP goal of normotension, as it has been >48 hours since symptom onset. - Will sign off, as I am not covering neurology service over the weekend. Please consult neurologist covering the service over the weekend for further neurologic monitoring and management. Thank you for allowing me to take part in the care of this patient. Twan Escalera MD Neurology This clinical encounter was provided via live telemedicine platform. Consultative service was provided for neurology to support local providers. The Acute Teleneurology team should be contacted with any neurologic worsening or clinical changes, new test results, or new patient history that is reported to or discovered by the local team following completion of the teleneurology consultation, specifically that which has the potential to impact the consultative recommendations. Patient/Family was informed the Neurology Consult would happen via TeleHealth consult by way of interactive audio and video telecommunications and consented to receiving care in this manner. Due to the potential for life-threatening deterioration due to underlying neurologic illness, and limited resources available for patient care, telemedicine was used as means of patient care. Telemedicine consultation is limited in the extent of physical exam that can be virtually provided. Time spent evaluating patient includes time for face to face visit via telemedicine, review of medical records, imaging studies and discussion of findings with providers, the patient and/or family. Subjective Date of service: 09/28/19 Principal diagnosis: Stroke Interval history: No acute events overnight. Objective - Exam Narrative Exam: Patient is alert, awake, oriented x4, follows complex commands. No dysarthria or aphasia noted. PERRL, EOMI, VFF, tongue midline, bilaterally intact to LT, no facial weakness noted. 5/5 strength in LUE/LLE, 1/5 in RUE, 2/5 RLE. Chance aterally intact light touch. Difficulty with HTN and FTN due to Rt. weakness. - Vital Sign Vital Signs - 12hr 09/28/19 09/28/19 09/28/19 05:03 08:49 09:03 Temperature 98.1 F 98.6 F Pulse Rate 87 86 Respiratory 18 18 20 Rate Blood Pressure 172/102 164/106 O2 Sat by Pulse 91 97 98 Oximetry 09/28/19 09/28/19 10:00 13:39 Temperature Pulse Rate 85 Respiratory Rate Blood Pressure O2 Sat by Pulse 100 Oximetry - Laboratory Findings CBC and BMP: 09/27/19 07:24 09/27/19 07:24 Abnormal Lab Findings: Abnormal Labs 09/25/19 09/25/19 09/27/19 15:07 15:07 07:24 Hgb 15.3 H RDW 15.8 H 16.7 H Plt Count 125 L 130 L Lymph % (Auto) 8.6 L 11.7 L Eos % (Auto) 6.4 H Lymph # 0.7 L 1.1 L Eos # 0.6 H Seg Neutrophils % 79.8 H 74.3 H Sodium Chloride 107.1 H Carbon Dioxide Creatinine 1.6 H Glucose Cholesterol LDL Cholesterol Direct HDL Cholesterol 09/27/19 07:24 Hgb RDW Plt Count Lymph % (Auto) Eos % (Auto) Lymph # Eos # Seg Neutrophils % Sodium 136 L Chloride Carbon Dioxide 21 L Creatinine Glucose 110 H Cholesterol 223 H LDL Cholesterol Direct 149 H HDL Cholesterol 60 H
--- NOTE | 2019-09-28 18:15 | Progress Note ---
Assessment and Plan - Patient Problems (1) Acute CVA (cerebrovascular accident) Current Visit: Yes Status: Acute Plan to address problem: Stroke work-up MRI carotid duplex scan and echocardiogram Neurology consult requested Aspirin 325 mg p.o. daily initiated mri BRAIN Ganglio capsular infarcts bilaterally (2) Uncontrolled hypertension Current Visit: Yes Status: Acute Plan to address problem: Adjust blood pressure medications (3) DVT prophylaxis Current Visit: Yes Status: Acute Plan to address problem: On heparin and GI prophylaxis Subjective Date of service: 09/26/19 Principal diagnosis: Stroke Interval history: Patient is a 64 y/o man w/ a h/o HTN. He is not compliant with medication at home. He began to feel dizzy at around 11am yesterday, and fell from a standing position. When EMS arrived, patient was noted to have RUE weakness/numbness and slurred speech. He stated that RUE weakness began 3 days ago. He was found to have elevated BP, with SBP >200. Objective - Constitutional Vitals: Vital Signs - 12hr 09/28/19 09/28/19 09/28/19 08:49 09:03 10:00 Temperature 98.6 F Pulse Rate 86 85 Respiratory 18 20 Rate Blood Pressure 164/106 Blood Pressure [Left] O2 Sat by Pulse 97 98 Oximetry 09/28/19 09/28/19 13:39 14:00 Temperature 98 F Pulse Rate 110 H Respiratory Rate Blood Pressure Blood Pressure 157/89 [Left] O2 Sat by Pulse 100 Oximetry General appearance: Present: no acute distress, well-nourished - EENT Eyes: PERRL, EOM intact ENT: hearing intact, clear oral mucosa Ears: bilateral: normal - Neck Neck: supple, normal ROM - Respiratory Respiratory effort: normal Respiratory: bilateral: CTA - Breasts Breasts: normal - Cardiovascular Heart rate: 78 Rhythm: regular Heart Sounds: Present: S1 & S2. Absent: gallop, rub Extremities: pulses intact, No edema, normal color, Full ROM - Gastrointestinal General gastrointestinal: Present: soft, non-tender, non-distended, normal bowel sounds - Genitourinary Male genitourinary: normal - Integumentary Integumentary: clear, warm, dry - Musculoskeletal Musculoskeletal: right sided weakness - Neurologic Neurologic: focal deficits (R sided weakness gabriella RUE), moves all extremities - Psychiatric Psychiatric: memory intact, appropriate mood/affect, intact judgment & insight - Labs CBC & Chem 7: 09/27/19 07:24 09/27/19 07:24 Labs: MRi bRAIN IMPRESSION: 1. Small areas of acute/early subacute ischemia in the gangliocapsular regions bilaterally, as described above. HEART Score - HEART Score Age: 45-65 Troponin: Troponin T < 0.010 ng/mL (0.00-0.029) 09/25/19 15:07 - Critical Actions Critical Actions: 4-6 pts:12-16.6% risk of adverse cardiac event. Should be admitted
--- NOTE | 2019-09-28 18:26 | Progress Note ---
Assessment and Plan - Patient Problems (1) Acute CVA (cerebrovascular accident) Current Visit: Yes Status: Acute Plan to address problem: Stroke work-up MRI carotid duplex scan and echocardiogram Neurology consult requested Aspirin 325 mg p.o. daily initiated mri BRAIN Ganglio capsular infarcts bilaterally - MRI brain: Noted to have b/l subcortical acute infarcts. - MRA head/neck: Noted to have significant intracranial atherosclerosis of Rt. MCA. - CT head: No acute infarct noted. Left MCA hyperdensity noted. - Repeat CT head: evolution of infarct, no evidence of hemorrhagic transformation. - Echo: EF 50-55%, LA normal size, bubble study negative. - Recommend dual antiplatelet therapy with aspirin 81 mg daily and Plavix 75 mg daily for 90 days (based on [facility] protocol), after which Plavix can be stopped. Discussed risks and benefits of dual antiplatelet therapy with patient, including intracranial hemorrhage as well as bleeding at other sites, and patient agreed to take this. - Recommend for patient to stop smoking. - Cont. statin. LDL goal <70 - Telemetry monitoring while in house - PT/OT/ST - DVT Ppx: Recommend lovenox - Etiology is intracranial atherosclerosis vs. cryptogenic, given b/l subcortical infarcts. (2) Uncontrolled hypertension Current Visit: Yes Status: Acute Plan to address problem: Adjust blood pressure medications (3) DVT prophylaxis Current Visit: Yes Status: Acute Plan to address problem: On heparin and GI prophylaxis Subjective Date of service: 09/27/19 Principal diagnosis: Stroke Interval history: Patient is a 64 y/o man w/ a h/o HTN. He is not compliant with medication at home. He began to feel dizzy at around 11am yesterday, and fell from a standing position. When EMS arrived, patient was noted to have RUE weakness/numbness and slurred speech. He stated that RUE weakness began 3 days ago. He was found to have elevated BP, with SBP >200. Rt sided weakness slightly better Objective - Constitutional Vitals: Vital Signs - 12hr 09/28/19 09/28/19 09/28/19 08:49 09:03 10:00 Temperature 98.6 F Pulse Rate 86 85 Respiratory 18 20 Rate Blood Pressure 164/106 Blood Pressure [Left] O2 Sat by Pulse 97 98 Oximetry 09/28/19 09/28/19 13:39 14:00 Temperature 98 F Pulse Rate 110 H Respiratory Rate Blood Pressure Blood Pressure 157/89 [Left] O2 Sat by Pulse 100 Oximetry General appearance: Present: no acute distress, well-nourished - EENT Eyes: PERRL, EOM intact ENT: hearing intact, clear oral mucosa Ears: bilateral: normal - Neck Neck: supple, normal ROM - Respiratory Respiratory effort: normal Respiratory: bilateral: CTA - Breasts Breasts: normal - Cardiovascular Heart rate: 78 Rhythm: regular Heart Sounds: Present: S1 & S2. Absent: gallop, rub Extremities: pulses intact, No edema, normal color, Full ROM - Gastrointestinal General gastrointestinal: Present: soft, non-tender, non-distended, normal bowel sounds - Genitourinary Male genitourinary: normal - Integumentary Integumentary: clear, warm, dry - Musculoskeletal Musculoskeletal: right sided weakness - Neurologic Neurologic: focal deficits (R side hemiplegia), moves all extremities - Psychiatric Psychiatric: memory intact, appropriate mood/affect, intact judgment & insight - Labs CBC & Chem 7: 09/27/19 07:24 09/27/19 07:24 HEART Score - HEART Score Age: 45-65 Troponin: Troponin T < 0.010 ng/mL (0.00-0.029) 09/25/19 15:07 - Critical Actions Critical Actions: 4-6 pts:12-16.6% risk of adverse cardiac event. Should be admitted
[2019-09-28] MEDS ORDERED: cloNIDine 0.1 MG TAB PO STA (20:57)
[2019-09-28] MEDS ORDERED: hydrALAZINE 20 MG/1 ML INJ IV ONE (23:29)
[2019-09-29 08:52] VITALS: BP 150/90
[2019-09-29] MEDS: ASPIRIN EC 81 MG TAB PO SCH (09:08)
[2019-09-29] MEDS: CLOPIDOGREL 75 MG TAB PO SCH (09:08)
[2019-09-29] MEDS: amLODIPine 5 MG TAB PO SCH (09:08)
[2019-09-29] MEDS: hydroCHLOROthiazide 25 MG TAB PO SCH (09:08)
== END 2019-09-29 10:25 | disposition home or self-care (01) | DRG 66 ==
LOC: ED 14:48 → 4A 16:17
PROVIDERS: ADMIT Internal Medicine; ATTEND Internal Medicine
DX: I63.9 Cerebral infarction, unspecified (principal); I10 Essential (primary) hypertension; F17.200 Nicotine dependence, unspecified, uncomplicated; R29.703 NIHSS score 3; Z79.899 Other long term (current) drug therapy; Z72.89 Other problems related to lifestyle; Z82.49 Family history of ischemic heart disease and other diseases of the circulatory system
CPT/HCPCS: 36415; 70450; 70544; 70547; 70551; 71045; 80048; 80053; 80061; 82962; 83036; 84484; 85025; 85610; 85670; 85730; 93005; 93306; 93880; 99406; G0378; A9270-GY; J0360

== ENCOUNTER 2019-10-05 13:10 | Emergency (ER) | payer SELFPAY ==
--- NOTE | 2019-10-05 13:37 | Emergency Department Report ---
HPI - General Chief Complaint: Altered Mental Status Time Seen by Provider: 10/05/19 13:29 - HPI HPI: This is a 64-year-old -[place] male presents to the emergency department via EMS from [place] with the complaint of an unresponsive episode and concern for a stroke. Patient was here on 09/25/2019 and was found to have an acute bilateral ganglio-capsular CVA and presented at that time with right-sided deficits. The patient came back on 09/30/2019 with "worsening neurological symptoms" and was once again worked up and found to have some acute scattered frontal infarcts at that time. Supposedly the patient was found nonverbal this morning and therefore EMS was called. At this time the patient is awake, alert, and apparently at his baseline since having these CVAs. He also has a past medical history of hypertension, dyslipidemia. ED Past Medical Hx - Past Medical History Previous Medical History?: Yes Hx Hypertension: Yes Hx CVA: Yes (R sided weakness) Hx Seizures: Yes - Surgical History Past Surgical History?: Yes Additional Surgical History: Left hand surgery, "tendons" - Social History Smoking Status: Never Smoker - Medications Home Medications: Home Medications Medication Instructions Recorded Confirmed Last Taken Type hydroCHLOROthiazide [HCTZ] 25 mg PO QDAY 90 Days #90 tablet 02/13/18 09/30/19 09/29/19 Rx Aspirin EC [Halfprin EC] 81 mg PO QDAY #30 tablet 09/28/19 09/30/19 09/29/19 Rx AtorvaSTATin [Lipitor] 80 mg PO QHS #30 tablet 09/28/19 09/30/19 09/29/19 Rx Clopidogrel [Plavix] 75 mg PO QDAY #30 tablet 09/28/19 09/30/19 09/29/19 Rx Valsartan 80 mg PO QDAY #30 tablet 09/28/19 09/30/19 09/29/19 Rx amLODIPine 10 mg PO DAILY #30 tablet 09/28/19 09/30/19 09/29/19 Rx ED Review of Systems ROS: Stated complaint: AMS Other details as noted in HPI Comment: All other systems reviewed and negative Constitutional: weakness. denies: chills, fever Eyes: denies: eye pain, vision change ENT: denies: ear pain, throat pain Respiratory: denies: cough, shortness of breath Cardiovascular: denies: chest pain, palpitations Gastrointestinal: denies: abdominal pain, vomiting Genitourinary: denies: dysuria, discharge Musculoskeletal: denies: back pain, arthralgia Skin: denies: rash, lesions Neurological: weakness. denies: headache Physical Exam - Physical Exam Vital Signs: Vital Signs 10/05/19 13:28 Temperature 98.1 F Pulse Rate 67 Respiratory 20 Rate Blood Pressure 155/85 Blood Pressure 155/85 [Right] O2 Sat by Pulse 100 Oximetry Physical Exam: GENERAL: The patient is well-developed well-nourished. HENT: Normocephalic. Atraumatic. Patient has moist mucous membranes. EYES: Extraocular motions are intact. No nystagmus. No gaze preference. NECK: Supple. Trachea is midline. CHEST/LUNGS: Clear to auscultation. There is no respiratory distress noted. HEART/CARDIOVASCULAR: Regular. There is no tachycardia. There is no murmur. ABDOMEN: Abdomen is soft, nontender. Patient has normal bowel sounds. There is no abdominal distention. SKIN: Skin is warm and dry. NEURO: The patient is awake, alert, and cooperative. Right-sided weakness. Mild right-sided facial droop. MUSCULOSKELETAL: There is no tenderness or deformity. There is no evidence of acute injury. ED Course Vital Signs 10/05/19 13:28 Temperature 98.1 F Pulse Rate 67 Respiratory 20 Rate Blood Pressure 155/85 Blood Pressure 155/85 [Right] O2 Sat by Pulse 100 Oximetry - Reevaluation(s) Reevaluation #1: 10/05/19 16:07 Lab Results 10/05/19 10/05/19 10/05/19 Range/Units 14:20 14:20 14:25 WBC 8.2 (4.5-11.0) K/mm3 RBC 4.30 (3.65-5.03) M/mm3 Hgb 12.8 (11.8-15.2) gm/dl Hct 38.4 (35.5-45.6) % MCV 89 (84-94) fl MCH 30 (28-32) pg MCHC 33 (32-34) % RDW 15.6 H (13.2-15.2) % Plt Count 204 (140-440) K/mm3 Lymph % (Auto) 12.7 L (13.4-35.0) % Bosque % (Auto) 7.5 H (0.0-7.3) % Eos % (Auto) 5.6 H (0.0-4.3) % Baso % (Auto) 0.9 (0.0-1.8) % Lymph # 1.0 L (1.2-5.4) K/mm3 Bosque # 0.6 (0.0-0.8) K/mm3 Eos # 0.5 H (0.0-0.4) K/mm3 Baso # 0.1 (0.0-0.1) K/mm3 Seg Neutrophils % 73.3 H (40.0-70.0) % Seg Neutrophils # 6.0 (1.8-7.7) K/mm3 PT (12.2-14.9) Sec. INR (0.87-1.13) APTT (24.2-36.6) Sec. Sodium (137-145) mmol/L Potassium (3.6-5.0) mmol/L Chloride (98-107) mmol/L Carbon Dioxide (22-30) mmol/L Anion Gap mmol/L BUN (9-20) mg/dL Creatinine (0.8-1.3) mg/dL Estimated GFR ml/min BUN/Creatinine Ratio % Glucose (75-100) mg/dL Calcium (8.4-10.2) mg/dL Ammonia (25-60) umol/L Total Creatine Kinase (55-170) units/L CK-MB (CK-2) (0.0-4.0) ng/mL CK-MB (CK-2) Rel Index (0-4) Troponin T (0.00-0.029) ng/mL TSH (0.270-4.200) mlU/mL Urine Color Yellow (Yellow) Urine Turbidity Clear (Clear) Urine pH 5.0 (5.0-7.0) Ur Specific Marcus 1.024 (1.003-1.030) Urine Protein <15 mg/dl (Negative) mg/dL Urine Glucose (UA) Neg (Negative) mg/dL Urine Ketones Neg (Negative) mg/dL Urine Blood Sm (Negative) Urine Nitrite Neg (Negative) Urine Bilirubin Neg (Negative) Urine Urobilinogen 2.0 (<2.0) mg/dL Ur Leukocyte Esterase Neg (Negative) Urine WBC (Auto) 1.0 (0.0-6.0) /HPF Urine RBC (Auto) 3.0 (0.0-6.0) /HPF Urine Mucus Few /HPF Urine Opiates Screen Negative Urine Methadone Screen Negative Ur Barbiturates Screen Negative Ur Phencyclidine Scrn Negative Ur Amphetamines Screen Negative U Benzodiazepines Scrn Negative Urine Cocaine Screen Negative U Marijuana (THC) Screen Negative Drugs of Abuse Note Disclamer 10/05/19 10/05/19 10/05/19 Range/Units 14:25 14:25 15:03 WBC (4.5-11.0) K/mm3 RBC (3.65-5.03) M/mm3 Hgb (11.8-15.2) gm/dl Hct (35.5-45.6) % MCV (84-94) fl MCH (28-32) pg MCHC (32-34) % RDW (13.2-15.2) % Plt Count (140-440) K/mm3 Lymph % (Auto) (13.4-35.0) % Bosque % (Auto) (0.0-7.3) % Eos % (Auto) (0.0-4.3) % Baso % (Auto) (0.0-1.8) % Lymph # (1.2-5.4) K/mm3 Bosque # (0.0-0.8) K/mm3 Eos # (0.0-0.4) K/mm3 Baso # (0.0-0.1) K/mm3 Seg Neutrophils % (40.0-70.0) % Seg Neutrophils # (1.8-7.7) K/mm3 PT 14.6 (12.2-14.9) Sec. INR 1.12 (0.87-1.13) APTT 28.9 (24.2-36.6) Sec. Sodium 140 (137-145) mmol/L Potassium 4.0 (3.6-5.0) mmol/L Chloride 107.7 H (98-107) mmol/L Carbon Dioxide 24 (22-30) mmol/L Anion Gap 12 mmol/L BUN 34 H (9-20) mg/dL Creatinine 1.9 H (0.8-1.3) mg/dL Estimated GFR 44 ml/min BUN/Creatinine Ratio 18 % Glucose 167 H (75-100) mg/dL Calcium 9.2 (8.4-10.2) mg/dL Ammonia (25-60) umol/L Total Creatine Kinase 890 H (55-170) units/L CK-MB (CK-2) 6.3 H (0.0-4.0) ng/mL CK-MB (CK-2) Rel Index 0.7 (0-4) Troponin T < 0.010 (0.00-0.029) ng/mL TSH 0.799 (0.270-4.200) mlU/mL Urine Color (Yellow) Urine Turbidity (Clear) Urine pH (5.0-7.0) Ur Specific Marcus (1.003-1.030) Urine Protein (Negative) mg/dL Urine Glucose (UA) (Negative) mg/dL Urine Ketones (Negative) mg/dL Urine Blood (Negative) Urine Nitrite (Negative) Urine Bilirubin (Negative) Urine Urobilinogen (<2.0) mg/dL Ur Leukocyte Esterase (Negative) Urine WBC (Auto) (0.0-6.0) /HPF Urine RBC (Auto) (0.0-6.0) /HPF Urine Mucus /HPF Urine Opiates Screen Urine Methadone Screen Ur Barbiturates Screen Ur Phencyclidine Scrn Ur Amphetamines Screen U Benzodiazepines Scrn Urine Cocaine Screen U Marijuana (THC) Screen Drugs of Abuse Note 10/05/19 Range/Units 15:08 WBC (4.5-11.0) K/mm3 RBC (3.65-5.03) M/mm3 Hgb (11.8-15.2) gm/dl Hct (35.5-45.6) % MCV (84-94) fl MCH (28-32) pg MCHC (32-34) % RDW (13.2-15.2) % Plt Count (140-440) K/mm3 Lymph % (Auto) (13.4-35.0) % Bosque % (Auto) (0.0-7.3) % Eos % (Auto) (0.0-4.3) % Baso % (Auto) (0.0-1.8) % Lymph # (1.2-5.4) K/mm3 Bosque # (0.0-0.8) K/mm3 Eos # (0.0-0.4) K/mm3 Baso # (0.0-0.1) K/mm3 Seg Neutrophils % (40.0-70.0) % Seg Neutrophils # (1.8-7.7) K/mm3 PT (12.2-14.9) Sec. INR (0.87-1.13) APTT (24.2-36.6) Sec. Sodium (137-145) mmol/L Potassium (3.6-5.0) mmol/L Chloride (98-107) mmol/L Carbon Dioxide (22-30) mmol/L Anion Gap mmol/L BUN (9-20) mg/dL Creatinine (0.8-1.3) mg/dL Estimated GFR ml/min BUN/Creatinine Ratio % Glucose (75-100) mg/dL Calcium (8.4-10.2) mg/dL Ammonia 27.0 (25-60) umol/L Total Creatine Kinase (55-170) units/L CK-MB (CK-2) (0.0-4.0) ng/mL CK-MB (CK-2) Rel Index (0-4) Troponin T (0.00-0.029) ng/mL TSH (0.270-4.200) mlU/mL Urine Color (Yellow) Urine Turbidity (Clear) Urine pH (5.0-7.0) Ur Specific Marcus (1.003-1.030) Urine Protein (Negative) mg/dL Urine Glucose (UA) (Negative) mg/dL Urine Ketones (Negative) mg/dL Urine Blood (Negative) Urine Nitrite (Negative) Urine Bilirubin (Negative) Urine Urobilinogen (<2.0) mg/dL Ur Leukocyte Esterase (Negative) Urine WBC (Auto) (0.0-6.0) /HPF Urine RBC (Auto) (0.0-6.0) /HPF Urine Mucus /HPF Urine Opiates Screen Urine Methadone Screen Ur Barbiturates Screen Ur Phencyclidine Scrn Ur Amphetamines Screen U Benzodiazepines Scrn Urine Cocaine Screen U Marijuana (THC) Screen Drugs of Abuse Note - Consultations Consultation #1: 10/05/19 16:11 The patient was seen by the telemedicine neurologist, Dr. Talavera, immediately upon return from the CT scan. Patient was given an NIH stroke scale of 7. Given the recent strokes and the patient's improvement from being nonverbal this morning, he is not a TPA candidate. The neurologist recommendations are in his consultations. ED Medical Decision Making - Lab Data Result diagrams: 10/05/19 14:25 10/05/19 14:25 - EKG Data -: EKG Interpreted by Me EKG shows normal: sinus rhythm, axis, intervals, QRS complexes (LVH), ST-T waves (T wave inversions to the lateral leads) Rate: bradycardia (58 bpm) - EKG Data When compared to previous EKG there are: no significant change Interpretation: unchanged when compared t (10/01/19) - Radiology Data Radiology results: report reviewed CT HEAD WITHOUT CONTRAST INDICATION / CLINICAL INFORMATION: MAIN. TECHNIQUE: Axial imaging performed from the skull apex through the skull base without the use of contrast. Sagittal and coronal reformatted images. All CT scans at this location are performed using CT dose reduction for ALARA by means of automated exposure control. COMPARISON: 09/30/2019 CT brain. 10/01/2019 MR brain. FINDINGS: CEREBRAL PARENCHYMA: Mild chronic white matter changes and multiple chronic lacunar infarcts in the basal ganglia and brennan radiata are unchanged. No acute territorial infarct is appreciated. Previously described small infarcts on MR brain are not clearly appreciated on CT. HEMORRHAGE: None. EXTRA-AXIAL SPACES: Normal in size and morphology for the patient's age. VENTRICULAR SYSTEM: Normal in size and morphology for the patient's age. MIDLINE SHIFT OR HERNIATION: None. CEREBELLUM / BRAINSTEM: No significant abnormality. CALVARIUM: No significant abnormality. ORBITS: Normal as visualized. PARANASAL SINUSES / MASTOID AIR CELLS: Normal as visualized. SOFT TISSUES of HEAD: No significant abnormality. ADDITIONAL FINDINGS: None. IMPRESSION: No acute intracranial process is appreciated. No significant change since 09/30/2019. - Medical Decision Making This patient presents to the emergency department after he had an episode in which he was awake but nonverbal. Given the patient's recent history of acute CVA, a few days apart, a code stroke was initiated. CT of the head did not show any bleed, shift, mass, ischemia, or any other acute process. Patient's labs are mostly unremarkable except for some mild renal insufficiency. EKG does not have morphology consistent with ST elevation GA. Patient was seen by the telemedicine neurologist, Dr. Talavera, upon the patient's return from CT. He was given an NIH stroke scale of 7 and a recommendation was given for admission to the hospital for work-up of TIA versus encephalopathy. The patient has been presented to the admitting hospitalist, Dr. Carmen, for further disposition. Critical Care Time: No Critical care attestation.: If time is entered above; I have spent that time in minutes in the direct care of this critically ill patient, excluding procedure time. ED Disposition Clinical Impression: TIA (transient ischemic attack) Hypertension Qualifiers: Hypertension type: essential hypertension Qualified Code(s): I10 - Essential (primary) hypertension Disposition: OP ADMIT IP TO THIS HOSP Is pt being admited?: Yes Condition: Stable Time of Disposition: 16:10 (Dr Carmen at 1600)
--- NOTE | 2019-10-05 14:02 | Cat Scan Report ---
CT HEAD WITHOUT CONTRAST INDICATION / CLINICAL INFORMATION: MAIN. TECHNIQUE: Axial imaging performed from the skull apex through the skull base without the use of cont rast. Sagittal and coronal reformatted images. All CT scans at this location are performed using CT dose reduction for ALARA by means of automated exposure control. COMPARISON: 09/30/2019 CT brain. 10/01/2019 MR brain. FINDINGS: CEREBRAL PARENCHYMA: Mild chronic white matter changes and multiple chronic lacunar infarcts in the b shen ganglia and brennan radiata are unchanged. No acute territorial infarct is appreciated. Previousl y described small infarcts on MR brain are not clearly appreciated on CT. HEMORRHAGE: None. EXTRA-AXIAL SPACES: Normal in size and morphology for the patient's age. VENTRICULAR SYSTEM: Normal in size and morphology for the patient's age. MIDLINE SHIFT OR HERNIATION: None. CEREBELLUM / BRAINSTEM: No significant abnormality. CALVARIUM: No significant abnormality. ORBITS: Normal as visualized. PARANASAL SINUSES / MASTOID AIR CELLS: Normal as visualized. SOFT TISSUES of HEAD: No significant abnormality. ADDITIONAL FINDINGS: None. IMPRESSION: No acute intracranial process is appreciated. No significant change since 09/30/2019. Signer Name: Jason Chowdhury Jr, MD Signed: 10/05/2019 1:57 PM Workstation Name: [id number]
[2019-10-05 14:20] VITALS: BP 154/87
[2019-10-05 14:29] LABS: Bilirubin,Urine NEG (Negative); Blood,Urine SM (Negative); Color,Urine Yellow (Yellow); Mucus,Urine FEW /HPF; Protein,Urine <15 mg/dL mg/dL (Negative)
[2019-10-05 14:36] LABS: Amphetamine Screen,Urine Negative; Benzodiazepines Screen,Urine Negative; Cannabinoid Screen,Urine Negative; Cocaine Screen,Urine Negative; Methadone Screen,Urine Negative; Opiate Screen,Urine Negative
[2019-10-05 14:44] LABS: Basophils # (Auto) 0.1 K/mm3 (0.0-0.1); Basophils % (Auto) 0.9 % (0.0-1.8); Eosinophils # (Auto) 0.5 K/mm3 (0.0-0.4); Eosinophils % (Auto) 5.6 % (0.0-4.3); Hematocrit 38.4 % (35.5-45.6); Hemoglobin 12.8 gm/dl (11.8-15.2); Lymphocytes % (Auto) 12.7 % (13.4-35.0); Mean Corpuscular HGB Conc 33 % (32-34); Mean Corpuscular Volume 89 fl (84-94); Monocytes # (Auto) 0.6 K/mm3 (0.0-0.8); Monocytes % (Auto) 7.5 % (0.0-7.3); Platelet Count 204 K/mm3 (140-440); Red Cell Distribution Width 15.6 % (13.2-15.2)
[2019-10-05 14:54] LABS: INR 1.12 (0.87-1.13)
[2019-10-05 14:55] LABS: Partial Thromboplastin Time 28.9 Sec. (24.2-36.6)
[2019-10-05 15:19] LABS: BUN/Creatinine Ratio 18; Blood Urea Nitrogen 34 mg/dL (9-20); Calcium 9.2 mg/dL (8.4-10.2); Creatine Kinase MB 6.3 ng/mL (0.0-4.0); Hemolysis Index 6
--- NOTE | 2019-10-05 16:57 | Event Note ---
Date: 10/05/19 64 YO Male with TIA presents to ED for evaluation. Pt medically optimized with no curative treatment options available. Pt discharged back to [facility]. Physical Exam: GENERAL: The patient is well-developed well-nourished. HENT: Normocephalic. Atraumatic. Patient has moist mucous membranes. EYES: Extraocular motions are intact. No nystagmus. No gaze preference. NECK: Supple. Trachea is midline. CHEST/LUNGS: Clear to auscultation. There is no respiratory distress noted. HEART/CARDIOVASCULAR: Regular. There is no tachycardia. There is no murmur. ABDOMEN: Abdomen is soft, nontender. Patient has normal bowel sounds. There is no abdominal distention. SKIN: Skin is warm and dry. NEURO: The patient is awake, alert, and cooperative. Right-sided weakness. Mild right-sided facial droop. MUSCULOSKELETAL: There is no tenderness or deformity. There is no evidence of acute injury.
== END 2019-10-05 20:38 | disposition admitted as inpatient to this hospital (09) ==
LOC: ED 13:10
DX: G45.8 Other transient cerebral ischemic attacks and related syndromes (principal); I10 Essential (primary) hypertension; Z79.899 Other long term (current) drug therapy
CPT/HCPCS: 36415; 70450; 80048; 80307; 81001; 82140; 82550; 82553; 84443; 84484; 85025; 85610; 85730; 93005

== ENCOUNTER 2019-10-19 21:26 | Inpatient (IN) | payer OTHER ==
[2019-10-19] MEDS ORDERED: SODIUM CHLORIDE 0.9% 1000 ML 1,000 ML IV ONE ×2 (22:03→22:10)
[2019-10-19] MEDS ORDERED: cefTRIAXone/NS 2 GM/100 ML 2 GM/100 ML BAG IV ONE (22:10)
--- NOTE | 2019-10-19 22:11 | Emergency Department Report ---
ED General Adult HPI - General Chief complaint: Fever Stated complaint: WEAKNESS/FEVER PUI?: No Time Seen by Provider: 10/19/19 22:03 Source: patient, EMS Mode of arrival: Stretcher Limitations: Physical Limitation - History of Present Illness Initial comments: Patient is a 64-year-old male that presents emergency room with complaints of weakness and fever. Patient symptoms that his symptoms started 2 days ago. Patient states they are worsening. Patient states his weakness is generalized. Patient states that his fever is fluctuating. Patient denies chest pain or shortness of breath. Patient denies dysuria. Patient denies abdominal pain. Patient states that the symptoms became so bad that he needed to call EMS. P atient states that EMS picked him up at his care home. Patient brought in by EMS. Report received from EMS. EMS states that the patient is at baseline mentation per care home. Patient is alert and oriented x2-3 but has times of confusion.. Patient denies recent travel. Patient denies recent international travel. Patient denies exposure to the novel coronavirus. Patient denies sick contacts. -: Sudden Consistency: constant Improves with: rest Worsens with: movement Associated Symptoms: fever/chills, malaise, weakness. denies: confusion, chest pain, cough, diaphoresis, nausea/vomiting, rash, seizure, shortness of breath, syncope Treatments Prior to Arrival: none - Related Data Home Medications Medication Instructions Recorded Confirmed Last Taken AtorvaSTATin [Lipitor] 40 mg PO QHS 10/19/19 10/19/19 Unknown Ergocalciferol 50,000 unit PO DAILY 10/19/19 10/19/19 Unknown Nifedipine ER 60 mg PO DAILY 10/19/19 10/19/19 Unknown amLODIPine 5 mg PO DAILY 10/19/19 10/19/19 Unknown levETIRAcetam 500 mg PO DAILY 10/19/19 10/19/19 Unknown Previous Rx's Medication Instructions Recorded Last Taken Type Aspirin EC [Halfprin EC] 81 mg PO QDAY #30 tablet 09/28/19 09/29/19 Rx Clopidogrel [Plavix] 75 mg PO QDAY #30 tablet 09/28/19 09/29/19 Rx Valsartan 80 mg PO QDAY #30 tablet 09/28/19 09/29/19 Rx Allergies Allergy/AdvReac Type Severity Reaction Status Date / Time No Known Allergies Allergy Verified 02/05/16 08:57 ED Review of Systems ROS: Stated complaint: WEAKNESS/FEVER Other details as noted in HPI Constitutional: see HPI, chills, fever, malaise, weakness Eyes: denies: eye pain, eye discharge, vision change ENT: denies: ear pain, throat pain Respiratory: denies: cough, shortness of breath, wheezing Cardiovascular: denies: chest pain, palpitations Endocrine: no symptoms reported Gastrointestinal: denies: abdominal pain, nausea, diarrhea Genitourinary: denies: urgency, dysuria Musculoskeletal: denies: back pain, joint swelling, arthralgia Skin: denies: rash, lesions Neurological: as per HPI, weakness. denies: headache, paresthesias Psychiatric: denies: anxiety, depression Hematological/Lymphatic: denies: easy bleeding, easy bruising ED Past Medical Hx - Past Medical History Previous Medical History?: Yes Hx Hypertension: Yes Hx CVA: Yes (R sided weakness) Hx Seizures: Yes - Surgical History Past Surgical History?: Yes Additional Surgical History: Left hand surgery, "tendons" - Family History Family history: no significant - Social History Smoking Status: Never Smoker Substance Use Type: None - Medications Home Medications: Home Medications Medication Instructions Recorded Confirmed Last Taken Type Aspirin EC [Halfprin EC] 81 mg PO QDAY #30 tablet 09/28/19 10/19/19 09/29/19 Rx Clopidogrel [Plavix] 75 mg PO QDAY #30 tablet 09/28/19 10/19/19 09/29/19 Rx Valsartan 80 mg PO QDAY #30 tablet 09/28/19 10/19/19 09/29/19 Rx AtorvaSTATin [Lipitor] 40 mg PO QHS 10/19/19 10/19/19 Unknown History Ergocalciferol 50,000 unit PO DAILY 10/19/19 10/19/19 Unknown History Nifedipine ER 60 mg PO DAILY 10/19/19 10/19/19 Unknown History amLODIPine 5 mg PO DAILY 10/19/19 10/19/19 Unknown History levETIRAcetam 500 mg PO DAILY 10/19/19 10/19/19 Unknown History ED Physical Exam - General Limitations: Physical Limitation General appearance: alert, in no apparent distress - Head Head exam: Present: atraumatic, normocephalic - Eye Eye exam: Present: normal appearance, PERRL Pupils: Present: normal accommodation - ENT ENT exam: Present: mucous membranes dry - Neck Neck exam: Present: normal inspection, full ROM. Absent: tenderness, meningismus - Respiratory Respiratory exam: Present: rhonchi, decreased breath sounds - Cardiovascular Cardiovascular Exam: Present: regular rate, normal rhythm. Absent: systolic murmur, diastolic murmur, rubs, gallop - GI/Abdominal GI/Abdominal exam: Present: soft, normal bowel sounds. Absent: distended, tenderness, guarding - Rectal Rectal exam: Present: normal rectal tone, heme (-) stool, prostate tenderness, prostate enlargement - Extremities Exam Extremities exam: Present: normal inspection, full ROM. Absent: tenderness - Back Exam Back exam: Present: normal inspection, full ROM. Absent: tenderness, CVA tenderness (R), CVA tenderness (L) - Neurological Exam Neurological exam: Present: altered (Patient is alert and oriented x2.) - Psychiatric Psychiatric exam: Present: flat affect - Skin Skin exam: Present: warm, dry, intact, normal color. Absent: rash ED Course Vital Signs 10/19/19 10/19/19 10/19/19 22:11 22:30 23:56 Temperature 98.6 F Pulse Rate 86 90 Respiratory 18 18 18 Rate Blood Pressure 182/106 Blood Pressure 197/104 [Left] O2 Sat by Pulse 99 99 100 Oximetry 10/20/19 10/20/19 10/20/19 00:40 00:50 01:40 Temperature Pulse Rate 90 90 76 Respiratory 16 Rate Blood Pressure 206/114 208/114 Blood Pressure 166/96 [Left] O2 Sat by Pulse 99 Oximetry 10/20/19 10/20/19 02:45 04:07 Temperature Pulse Rate 72 67 Respiratory 16 18 Rate Blood Pressure Blood Pressure 158/92 154/78 [Left] O2 Sat by Pulse 100 100 Oximetry - Reevaluation(s) Reevaluation #1: Blood pressure significantly high. Patient given medications. 10/20/19 00:47 Reevaluation #2: Rectal exam done and patient has an enlarged boggy prostate. 10/20/19 01:47 ED Medical Decision Making - Lab Data Result diagrams: 10/19/19 22:22 10/19/19 22:22 - EKG Data -: EKG Interpreted by Hi EKG shows normal: sinus rhythm, axis, intervals, QRS complexes, ST-T waves Rate: normal - Radiology Data Radiology results: report reviewed, image reviewed interpreted by me: Chest x-ray shows a right-sided pneumonia. No fractures noted. No cardiomegaly noted. No soft tissue inflammation. Examination: CT of the head without contrast Clinical information: Weakness Comparison: CT of the head, 10/05/2019 Technical: Multiple axial CT images of the head were obtained without intravenous contrast. Sagittal and coronal reformats were obtained. All CTs at this facility utilize dose reduction techniques including automated exposure control, iterative reconstruction and weight based dosing when appropriate to reduce patient radiation dose to as low as reasonable achievable. Findings: There is no CT evidence of acute intracranial hemorrhage or large territorial infarct. Hypodensities are again noted within the bilateral gangliocapsular regions, appearing similar when compared to the previous study. The ventricular system remains normal in size. No extra-axial fluid collection is identified. Evaluation of bony structures demonstrates no evidence of acute bony abnormality. The visualized paranasal sinuses and mastoid air cells appear grossly clear. Impression: 1. No CT evidence of acute intracranial process. CHEST 1 VIEW, 10/19/2019 9:59 PM CLINICAL INFORMATION/INDICATION: Fever COMPARISON: Chest radiograph, 09/25/2019 FINDINGS: SUPPORT DEVICES: None. HEART: Cardiac and mediastinal contours appear unchanged. LUNGS/PLEURA: No focal airspace disease or significant pleural effusion is identified. ADDITIONAL FINDINGS: No additional acute findings. IMPRESSION: 1. No evidence of acute cardiopulmonary process. CT ABDOMEN AND PELVIS WITHOUT CONTRAST INDICATION: Fever TECHNICAL: Multiple axial CT images of the abdomen and pelvis were acquired without intravenous contrast. Sagittal and coronal reformats were obtained. All CTs at this facility utilize dose reduction techniques including automated exposure control, iterative reconstruction and weight based dosing when appropriate to reduce patient radiation dose to as low as reasonable achievable. COMPARISON: No relevant prior studies are available for comparison. FINDINGS: Limited imaging of the bilateral lung bases demonstrates faint parenchymal density at the right lung base. Abdomen: The liver, spleen, pancreas, bilateral adrenal glands and bilateral kidneys show no evidence of acute abnormality. There is no hydronephrosis or hydroureter. The abdominal aorta is normal in caliber. There is no evidence of bowel obstruction. The appendix is visualized and appears normal. Scattered colonic diverticulosis is noted without evidence for diverticulitis. Pelvis: No free fluid is seen within the pelvis. The urinary bladder appears normal. Bones and Soft Tissues: Evaluation of bony structures demonstrates no evidence of destructive bony lesion. Evaluation of soft tissue structures demonstrates no acute soft tissue abnormality. IMPRESSION: 1. No CT evidence of acute inflammatory or obstructive process within the abd omen or pelvis. 2. Parenchymal density at the right lung base. While this may be secondary to atelectasis, it would be difficult to exclude an infectious or inflammatory process. Please correlate with patient's clinical symptoms. - Differential Diagnosis Fever, pneumonia, UTI, altered mental status, weakness Critical Care Time: Yes Critical care time in (mins) excluding proc time.: 35 Critical care attestation.: If time is entered above; I have spent that time in minutes in the direct care of this critically ill patient, excluding procedure time. Critical Care Time: 35 minutes ED Disposition Clinical Impression: Weakness, Renal insufficiency, Elevated CK, Acute prostatitis, Malignant hypertension Hypertension Qualifiers: Hypertension type: essential hypertension Qualified Code(s): I10 - Essential (primary) hypertension Fever Qualifiers: Fever type: unspecified Qualified Code(s): R50.9 - Fever, unspecified CKD (chronic kidney disease) Qualifiers: Chronic kidney disease stage: unspecified stage Qualified Code(s): N18.9 - Chronic kidney disease, unspecified Pneumonia Qualifiers: Pneumonia type: due to unspecified organism Laterality: right Lung location: lower lobe of lung Qualified Code(s): J18.9 - Pneumonia, unspecified organism Altered mental state Qualifiers: Altered mental status type: unspecified Qualified Code(s): R41.82 - Altered mental status, unspecified Disposition: DC-09 OP ADMIT IP TO THIS HOSP Is pt being admited?: Yes Does the pt Need Aspirin: No Condition: Critical Time of Disposition: 01:55
[2019-10-19 22:46] LABS: Basophils # (Auto) 0.1 K/mm3 (0.0-0.1); Basophils % (Auto) 0.7 % (0.0-1.8); Eosinophils # (Auto) 0.4 K/mm3 (0.0-0.4); Eosinophils % (Auto) 3.9 % (0.0-4.3); Hematocrit 29.1 % (35.5-45.6); Lymphocytes % (Auto) 10.3 % (13.4-35.0); Mean Corpuscular HGB Conc 35 % (32-34); Mean Corpuscular Volume 89 fl (84-94); Monocytes # (Auto) 0.6 K/mm3 (0.0-0.8); Monocytes % (Auto) 6.6 % (0.0-7.3); Platelet Count 188 K/mm3 (140-440); Red Blood Count 3.28 M/mm3 (3.65-5.03); Red Cell Distribution Width 15.4 % (13.2-15.2)
[2019-10-19 23:10] LABS: Alanine Aminotransferase 21 units/L (7-56); Albumin 3.6 g/dL (3.9-5); BUN/Creatinine Ratio 18; Blood Urea Nitrogen 30 mg/dL (9-20); Calcium 9.5 mg/dL (8.4-10.2); Hemolysis Index 5
--- NOTE | 2019-10-19 23:18 | Cat Scan Report ---
Examination: CT of the head without contrast Clinical information: Weakness Comparison: CT of the head, 10/05/2019 Technical: Multiple axial CT images of the head were obtained without intravenous contrast. Sagittal and coronal reformats were obtained. All CTs at this facility utilize dose reduction techniques inc luding automated exposure control, iterative reconstruction and weight based dosing when appropriate to reduce patient radiation dose to as low as reasonable achievable. Findings: There is no CT evidence of acute intracranial hemorrhage or large territorial infarct. Hypo densities are again noted within the bilateral gangliocapsular regions, appearing similar when compar ed to the previous study. The ventricular system remains normal in size. No extra-axial fluid collect ion is identified. Evaluation of bony structures demonstrates no evidence of acute bony abnormality. The visualized para nasal sinuses and mastoid air cells appear grossly clear. Impression: 1. No CT evidence of acute intracranial process. Signer Name: Bere Messer MD Signed: 10/19/2019 5:11 PM Workstation Name: [id number]
[2019-10-19 23:20] LABS: Bilirubin,Urine NEG (Negative); Blood,Urine SM (Negative); Color,Urine Yellow (Yellow); Mucus,Urine FEW /HPF; Protein,Urine <15 mg/dL mg/dL (Negative); Sperm,Urine 1+ /HPF (NP); Urobilinogen,Urine < 2.0 mg/dL (<2.0)
--- NOTE | 2019-10-19 23:23 | XRay Report ---
CHEST 1 VIEW, 10/19/2019 9:59 PM CLINICAL INFORMATION/INDICATION: Fever COMPARISON: Chest radiograph, 09/25/2019 FINDINGS: SUPPORT DEVICES: None. HEART: Cardiac and mediastinal contours appear unchanged. LUNGS/PLEURA: No focal airspace disease or significant pleural effusion is identified. ADDITIONAL FINDINGS: No additional acute findings. IMPRESSION: 1. No evidence of acute cardiopulmonary process. Signer Name: Bere Messer MD Signed: 10/19/2019 5:16 PM Workstation Name: [id number]
[2019-10-20] MEDS ORDERED: hydrALAZINE 20 MG/1 ML INJ IV ONE (00:37)
[2019-10-20] MEDS ORDERED: cloNIDine 0.2 MG TAB PO ONE (00:39)
--- NOTE | 2019-10-20 01:06 | Cat Scan Report ---
CT ABDOMEN AND PELVIS WITHOUT CONTRAST INDICATION: Fever TECHNICAL: Multiple axial CT images of the abdomen and pelvis were acquired without intravenous contr ast. Sagittal and coronal reformats were obtained. All CTs at this facility utilize dose reduction techniques including automated exposure control, iterative reconstruction and weight based dosing whe n appropriate to reduce patient radiation dose to as low as reasonable achievable. COMPARISON: No relevant prior studies are available for comparison. FINDINGS: Limited imaging of the bilateral lung bases demonstrates faint parenchymal density at the right lung base. Abdomen: The liver, spleen, pancreas, bilateral adrenal glands and bilateral kidneys show no evidence of acute abnormality. There is no hydronephrosis or hydroureter. The abdominal aorta is normal in ca liber. There is no evidence of bowel obstruction. The appendix is visualized and appears normal. Scat tered colonic diverticulosis is noted without evidence for diverticulitis. Pelvis: No free fluid is seen within the pelvis. The urinary bladder appears normal. Bones and Soft Tissues: Evaluation of bony structures demonstrates no evidence of destructive bony l esion. Evaluation of soft tissue structures demonstrates no acute soft tissue abnormality. IMPRESSION: 1. No CT evidence of acute inflammatory or obstructive process within the abdomen or pelvis. 2. Parenchymal density at the right lung base. While this may be secondary to atelectasis, it would b e difficult to exclude an infectious or inflammatory process. Please correlate with patient's clinica l symptoms. Signer Name: Bere Messer MD Signed: 10/20/2019 1:01 AM Workstation Name: [id number]
[2019-10-20] MEDS ORDERED: ACETAMINOPHEN 325 MG TAB PO PRN (02:04)
[2019-10-20] MEDS ORDERED: ONDANSETRON 4 MG/2 ML INJ IV PRN (02:04)
[2019-10-20] MEDS ORDERED: AZITHROMYCIN 500 MG in SODIUM CHLORIDE 0.9% 250ML 250 ML IV ONE (02:09)
--- NOTE | 2019-10-20 02:12 | History and Physical Report ---
<JORGE VELIZ O - Last Filed: 10/20/19 05:51> History of Present Illness Date of examination: 10/20/19 Date of admission: 10/20/2019 Chief complaint: Fever Generalized weakness. History of present illness: 64-year-old male with history of hypertension, seizure disorder, history of CVA with right-sided weakness presenting with a 2-day history of generalized weakness and fever. He denies any chest pain or shortness of breath, no nausea vomiting, no hematuria or dysuria. He has had some abdominal pain especially in the lower abdomen. Patient was brought in by EMS from [facility] where he resides. He denies any sick contacts. Patient denies any recent travel and denies any exposure to anyone with COVID-19. Work-up in the emergency room including CT of the abdomen and pelvis reveals possible infectious process in the right lung base. Past History Past Medical History: hypertension, hyperlipidemia, seizures, stroke (With right sided weakness.) Past Surgical History: Other (Lefyt hand surgery) Social history: no significant social history Family history: no significant family history Medications and Allergies Allergies Allergy/AdvReac Type Severity Reaction Status Date / Time No Known Allergies Allergy Verified 02/05/16 08:57 Home Medications Medication Instructions Recorded Confirmed Last Taken Type Aspirin EC [Halfprin EC] 81 mg PO QDAY #30 tablet 09/28/19 10/19/19 09/29/19 Rx Clopidogrel [Plavix] 75 mg PO QDAY #30 tablet 09/28/19 10/19/19 09/29/19 Rx Valsartan 80 mg PO QDAY #30 tablet 09/28/19 10/19/19 09/29/19 Rx AtorvaSTATin [Lipitor] 40 mg PO QHS 10/19/19 10/19/19 Unknown History Ergocalciferol 50,000 unit PO DAILY 10/19/19 10/19/19 Unknown History Nifedipine ER 60 mg PO DAILY 10/19/19 10/19/19 Unknown History amLODIPine 5 mg PO DAILY 10/19/19 10/19/19 Unknown History levETIRAcetam 500 mg PO DAILY 10/19/19 10/19/19 Unknown History Active Meds: Active Medications Azithromycin 500 mg/ Sodium (Chloride) 250 mls @ 250 mls/hr IV ONCE ONE; Protocol Stop: 10/20/19 03:08 Review of Systems Constitutional: fever, weakness, no chills Ears, nose, mouth and throat: no nasal congestion, no sore throat Cardiovascular: palpitations, no chest pain Respiratory: no cough, no shortness of breath Gastrointestinal: no abdominal pain, no nausea, no vomiting, no diarrhea Genitourinary Male: no dysuria, no hematuria, no flank pain, no nocturia Musculoskeletal: no neck pain, no low back pain Integumentary: no rash, no pruritis Neurological: no headaches, no confusion Psychiatric: no anxiety, no depression Exam - Constitutional Vitals: Temp Pulse Resp BP Pulse Ox 98.6 F 76 16 166/96 99 10/19/19 22:11 10/20/19 01:40 10/20/19 01:40 10/20/19 01:40 10/20/19 01:40 General appearance: Present: no acute distress, well-nourished - EENT Eyes: Present: PERRL, EOM intact. Absent: scleral icterus ENT: hearing intact, clear oral mucosa, dentition normal - Neck Neck: Present: normal ROM - Respiratory Respiratory effort: normal Respiratory: bilateral: diminished - Cardiovascular Rhythm: regular Heart Sounds: Present: S1 & S2. Absent: gallop, systolic murmur, diastolic murmur, rub - Extremities Extremities: no ischemia, pulses intact, pulses symmetrical, No edema, Full ROM Extremity abnormal: other (long , dystrophic toe nails) Peripheral Pulses: within normal limits - Abdominal General gastrointestinal: Present: soft, non-tender, non-distended, normal bowel sounds. Absent: mass - Integumentary Integumentary: Present: clear, warm, dry. Absent: rash - Musculoskeletal Musculoskeletal: right sided weakness - Psychiatric Psychiatric: appropriate mood/affect, intact judgment & insight, memory intact, cooperative - Neurologic Neurologic: CNII-XII intact, focal deficits (RIGHT SIDED WEAKNESS.), moves all extremities HEART Score - HEART Score Troponin: Troponin T < 0.010 ng/mL (0.00-0.029) 10/19/19 22:22 Results - Labs CBC & Chem 7: 10/19/19 22:22 10/19/19 22:22 Labs: Abnormal lab results 10/19/19 10/19/19 10/19/19 Range/Units 22:22 22:22 22:22 RBC 3.28 L (3.65-5.03) M/mm3 Hgb 10.0 L (11.8-15.2) gm/dl Hct 29.1 L (35.5-45.6) % MCHC 35 H (32-34) % RDW 15.4 H (13.2-15.2) % Lymph % (Auto) 10.3 L (13.4-35.0) % Lymph # 1.0 L (1.2-5.4) K/mm3 Seg Neutrophils % 78.5 H (40.0-70.0) % BUN 30 H (9-20) mg/dL Creatinine 1.7 H (0.8-1.3) mg/dL Glucose 101 H (75-100) mg/dL Lactic Acid (0.7-2.0) mmol/L Total Creatine Kinase 763 H (55-170) units/L Albumin 3.6 L (3.9-5) g/dL 10/20/19 Range/Units 01:12 RBC (3.65-5.03) M/mm3 Hgb (11.8-15.2) gm/dl Hct (35.5-45.6) % MCHC (32-34) % RDW (13.2-15.2) % Lymph % (Auto) (13.4-35.0) % Lymph # (1.2-5.4) K/mm3 Seg Neutrophils % (40.0-70.0) % BUN (9-20) mg/dL Creatinine (0.8-1.3) mg/dL Glucose (75-100) mg/dL Lactic Acid 0.50 L (0.7-2.0) mmol/L Total Creatine Kinase (55-170) units/L Albumin (3.9-5) g/dL Assessment and Plan - Patient Problems (1) Pneumonia Current Visit: Yes Status: Acute Qualifiers: Pneumonia type: due to unspecified organism Laterality: right Lung location: lower lobe of lung Qualified Code(s): J18.9 - Pneumonia, unspecified organism Plan to address problem: Patient placed on empiric IV antibiotics. We await blood culture results. (2) Altered mental state Current Visit: Yes Status: Acute Qualifiers: Altered mental status type: unspecified Qualified Code(s): R41.82 - Altered mental status, unspecified Plan to address problem: Possibly secondary to the underlying infection. Will monitor mental status. (3) Malignant hypertension Current Visit: Yes Status: Acute Plan to address problem: We will resume routine home medications once reconciled. Patient will also be placed on PRN IV hydralazine for optimal blood pressure control (4) Acute kidney injury superimposed on chronic kidney disease Current Visit: Yes Status: Acute Plan to address problem: We will continue on IV fluid and monitor BUN and creatinine. (5) DVT prophylaxis Current Visit: No Status: Acute (6) Full code status Current Visit: Yes Status: Acute <REZA JIMENEZ S - Last Filed: 10/21/19 17:22> History of Present Illness Date of admission: 10/20/19 01:55 Medications and Allergies Active Meds: Active Medications Acetaminophen (Tylenol) 650 mg PO Q4H PRN PRN Reason: Pain MILD(1-3)/Fever >100.5/REED Heparin Sodium (Porcine) (Heparin) 5,000 unit SUB-Q Q8HR NGOC Last Admin: 10/21/19 16:12 Dose: 5,000 unit Documented by: Sodium Chloride (Nacl 0.9% 1000 Ml) 1,000 mls @ 75 mls/hr IV DIRECT NGOC Last Admin: 10/20/19 18:16 Dose: 75 mls/hr Documented by: Ceftriaxone Sodium (Rocephin/Ns 2 Gm/100 Ml) 2 gm in 100 mls @ 200 mls/hr IV Q24HR NGOC; Protocol Last Infusion: 10/21/19 11:25 Dose: Infused Documented by: Azithromycin 500 mg/ Sodium (Chloride) 250 mls @ 250 mls/hr IV Q24HR NGOC; Protocol Last Infusion: 10/21/19 16:11 Dose: Infused Documented by: Labetalol HCl (Labetalol) 10 mg IV Q4H PRN PRN Reason: HYPERTENSION Last Admin: 10/21/19 12:46 Dose: 10 mg Documented by: Ondansetron HCl (Zofran) 4 mg IV Q8H PRN PRN Reason: Nausea And Vomiting Sodium Chloride (Sodium Chloride Flush Syringe 10 Ml) 10 ml IV BID NGOC Last Admin: 10/21/19 09:35 Dose: 10 ml Documented by: Sodium Chloride (Sodium Chloride Flush Syringe 10 Ml) 10 ml IV PRN PRN PRN Reason: LINE FLUSH Exam - Constitutional Vitals: Temp Pulse Resp BP Pulse Ox 98.0 F 89 18 164/89 99 10/21/19 12:22 10/21/19 15:19 10/21/19 12:22 10/21/19 15:19 10/21/19 12:22 HEART Score - HEART Score Troponin: Troponin T < 0.010 ng/mL (0.00-0.029) 10/19/19 22:22 Results - Labs CBC & Chem 7: 10/21/19 04:29 10/21/19 04:29 Labs: Abnormal lab results 10/21/19 10/21/19 Range/Units 04:29 04:29 RBC 3.14 L (3.65-5.03) M/mm3 Hgb 9.4 L (11.8-15.2) gm/dl Hct 27.3 L (35.5-45.6) % Eos % (Auto) 7.2 H (0.0-4.3) % Lymph # 1.0 L (1.2-5.4) K/mm3 Chloride 109.6 H (98-107) mmol/L Carbon Dioxide 21 L (22-30) mmol/L Creatinine 1.4 H (0.8-1.3) mg/dL
[2019-10-20] MEDS ORDERED: hydrALAZINE 20 MG/1 ML INJ IV PRN (05:37)
[2019-10-20] MEDS: HEPARIN 5,000 UNIT/1 ML VIAL SUB-Q SCH ×3 (06:03→21:53)
[2019-10-20] MEDS: SODIUM CHLORIDE 0.9% 1000 ML 1,000 ML IV SCH ×2 (06:03→18:16)
[2019-10-20] MEDS: cefTRIAXone/NS 2 GM/100 ML 2 GM/100 ML BAG IV SCH (09:01)
[2019-10-20] MEDS: AZITHROMYCIN 500 MG in SODIUM CHLORIDE 0.9% 250ML 250 ML IV SCH (10:27)
--- NOTE | 2019-10-20 17:57 | Event Note ---
Date: 10/20/19 Patient seen and reevaluated Community-acquired pneumonia
[2019-10-21 05:24] LABS: Basophils # (Auto) 0.1 K/mm3 (0.0-0.1); Basophils % (Auto) 0.9 % (0.0-1.8); Eosinophils # (Auto) 0.4 K/mm3 (0.0-0.4); Eosinophils % (Auto) 7.2 % (0.0-4.3); Hematocrit 27.3 % (35.5-45.6); Hemoglobin 9.4 gm/dl (11.8-15.2); Lymphocytes % (Auto) 17.6 % (13.4-35.0); Mean Corpuscular HGB Conc 34 % (32-34); Mean Corpuscular Volume 87 fl (84-94); Monocytes # (Auto) 0.4 K/mm3 (0.0-0.8); Monocytes % (Auto) 7.3 % (0.0-7.3); Platelet Count 151 K/mm3 (140-440); Red Blood Count 3.14 M/mm3 (3.65-5.03); Red Cell Distribution Width 14.9 % (13.2-15.2)
[2019-10-21 05:37] LABS: INR 1.06 (0.87-1.13)
[2019-10-21 05:44] LABS: BUN/Creatinine Ratio 13; Blood Urea Nitrogen 18 mg/dL (9-20); Calcium 9.3 mg/dL (8.4-10.2); Hemolysis Index 4
[2019-10-21] MEDS: HEPARIN 5,000 UNIT/1 ML VIAL SUB-Q SCH ×3 (06:25→21:50)
[2019-10-21] MEDS: cefTRIAXone/NS 2 GM/100 ML 2 GM/100 ML BAG IV SCH (09:35)
[2019-10-21] MEDS: AZITHROMYCIN 500 MG in SODIUM CHLORIDE 0.9% 250ML 250 ML IV SCH (11:25)
--- NOTE | 2019-10-21 17:04 | Progress Note ---
Assessment and Plan (1) Pneumonia Current Visit: Yes Status: Acute Qualifiers: Pneumonia type: due to unspecified organism Laterality: right Lung location: lower lobe of lung Qualified Code(s): J18.9 - Pneumonia, unspecified organism Plan to address problem: Patient placed on empiric IV antibiotics. We await blood culture results. Patient symptomatically better Patient states that he is still not back to normal and feels weak (2) Altered mental state Current Visit: Yes Status: Acute Qualifiers: Altered mental status type: unspecified Qualified Code(s): R41.82 - Altered mental status, unspecified Plan to address problem: Possibly secondary to the underlying infection. Will monitor mental status. (3) Malignant hypertension Current Visit: Yes Status: Acute Plan to address problem: We will resume routine home medications once reconciled. Patient will also be placed on PRN IV hydralazine for optimal blood pressure control (4) Acute kidney injury superimposed on chronic kidney disease Current Visit: Yes Status: Acute Plan to address problem: We will continue on IV fluid and monitor BUN and creatinine. Improved from 1.7 creatinine to 1.4 creatinine Continue IV fluids (5) DVT prophylaxis Current Visit: No Status: Acute (6) Full code status Current Visit: Yes Status: Acute Subjective Date of service: 10/21/19 Principal diagnosis: Right lower lobe pneumonia Interval history: 64-year-old male with history of hypertension, seizure disorder, history of CVA with right-sided weakness presenting with a 2-day history of generalized weakness and fever. He denies any chest pain or shortness of breath, no nausea vomiting, no hematuria or dysuria. He has had some abdominal pain especially in the lower abdomen. Patient was brought in by EMS from [facility] where he resides. He denies any sick contacts. Patient denies any recent travel and denies any exposure to anyone with COVID-19. Work-up in the emergency room including CT of the abdomen and pelvis reveals possible infectious process in the right lung base. Symptomatically better today Afebrile Objective - Constitutional Vitals: Vital Signs - 12hr 10/21/19 10/21/19 10/21/19 05:26 06:26 08:06 Temperature 98.2 F Pulse Rate 67 61 Pulse Rate [ Apical] Pulse Rate [ From Monitor] Respiratory 18 Rate Blood Pressure 165/81 165/81 163/96 Blood Pressure [Left] O2 Sat by Pulse 98 Oximetry 10/21/19 10/21/19 10/21/19 10:00 12:22 12:46 Temperature 98.0 F Pulse Rate 73 73 Pulse Rate [ 66 Apical] Pulse Rate [ 66 From Monitor] Respiratory 18 18 Rate Blood Pressure 201/110 201/110 Blood Pressure [Left] O2 Sat by Pulse 100 99 Oximetry 10/21/19 15:19 Temperature Pulse Rate 89 Pulse Rate [ Apical] Pulse Rate [ From Monitor] Respiratory Rate Blood Pressure Blood Pressure 164/89 [Left] O2 Sat by Pulse Oximetry General appearance: Present: no acute distress, well-nourished - EENT Eyes: PERRL, EOM intact ENT: hearing intact, clear oral mucosa Ears: bilateral: normal - Neck Neck: supple, normal ROM - Respiratory Respiratory effort: normal Respiratory: bilateral: CTA - Breasts Breasts: normal - Cardiovascular Heart rate: 78 Rhythm: regular Heart Sounds: Present: S1 & S2. Absent: gallop, rub Extremities: pulses intact, No edema, normal color, Full ROM - Gastrointestinal General gastrointestinal: Present: soft, non-tender, non-distended, normal bowel sounds - Genitourinary Male genitourinary: normal - Integumentary Integumentary: clear, warm, dry - Musculoskeletal Musculoskeletal: 1, strength equal bilaterally - Neurologic Neurologic: moves all extremities - Psychiatric Psychiatric: memory intact, appropriate mood/affect, intact judgment & insight - Labs CBC & Chem 7: 10/21/19 04:29 10/21/19 04:29 Labs: Abnormal lab results 10/21/19 10/21/19 Range/Units 04:29 04:29 RBC 3.14 L (3.65-5.03) M/mm3 Hgb 9.4 L (11.8-15.2) gm/dl Hct 27.3 L (35.5-45.6) % Eos % (Auto) 7.2 H (0.0-4.3) % Lymph # 1.0 L (1.2-5.4) K/mm3 Chloride 109.6 H (98-107) mmol/L Carbon Dioxide 21 L (22-30) mmol/L Creatinine 1.4 H (0.8-1.3) mg/dL HEART Score - HEART Score Troponin: Troponin T < 0.010 ng/mL (0.00-0.029) 10/19/19 22:22
[2019-10-21] MEDS: SODIUM CHLORIDE 0.9% 1000 ML 1,000 ML IV SCH (21:59)
[2019-10-22] MEDS: HEPARIN 5,000 UNIT/1 ML VIAL SUB-Q SCH ×3 (05:22→21:40)
[2019-10-22] MEDS: cefTRIAXone/NS 2 GM/100 ML 2 GM/100 ML BAG IV SCH (09:21)
[2019-10-22] MEDS: AZITHROMYCIN 500 MG in SODIUM CHLORIDE 0.9% 250ML 250 ML IV SCH (09:21)
[2019-10-23] MEDS: SODIUM CHLORIDE 0.9% 1000 ML 1,000 ML IV SCH (01:35)
[2019-10-23] MEDS ORDERED: cloNIDine 0.2 MG TAB PO ONE (01:40)
[2019-10-23] MEDS: HEPARIN 5,000 UNIT/1 ML VIAL SUB-Q SCH (05:36)
--- NOTE | 2019-10-23 07:00 | Discharge Summary ---
Providers - Providers Date of Admission: 10/20/19 01:55 Date of discharge: 10/23/19 Attending physician: WOODY GAY [facility] Hospital[facility] Condition: Critical Hospital course: Subjective Date of service: 10/23/19 Principal diagnosis: Right lower lobe pneumonia Interval history: 64-year-old male with history of hypertension, seizure disorder, history of CVA with right-sided weakness presenting with a 2-day history of generalized weakness and fever. He denies any chest pain or shortness of breath, no nausea vomiting, no hematuria or dysuria. He has had some abdominal pain especially in the lower abdomen. Patient was brought in by EMS from [facility] where he resides. He denies any sick contacts. Patient denies any recent travel and denies any exposure to anyone with COVID-19. Work-up in the emergency room including CT of the abdomen and pelvis reveals possible infectious process in the right lung base. Symptomatically better today Afebrile (1) Pneumonia Current Visit: Yes Status: Acute Qualifiers: Pneumonia type: due to unspecified organism Laterality: right Lung location: lower lobe of lung Qualified Code(s): J18.9 - Pneumonia, unspecified organism Plan to address problem: Patient placed on empiric IV antibiotics. We await blood culture results. Patient symptomatically better Stable for discharge (2) Altered mental state Current Visit: Yes Status: Acute Qualifiers: Altered mental status type: unspecified Qualified Code(s): R41.82 - Altered mental status, unspecified Plan to address problem: Possibly secondary to the underlying infection. Will monitor mental status. improved (3) Malignant hypertension Current Visit: Yes Status: Acute Plan to address problem: We will resume routine home medications once reconciled. Patient will also be placed on PRN IV hydralazine for optimal blood pressure control HTN well controlled (4) Acute kidney injury superimposed on chronic kidney disease Current Visit: Yes Status: Acute Plan to address problem: We will continue on IV fluid and monitor BUN and creatinine. Improved from 1.7 creatinine to 1.4 creatinine (5) DVT prophylaxis Current Visit: No Status: Acute (6) Full code status Current Visit: Yes Status: Acute Disposition: - TO HOME OR SELFCARE - Discharge Diagnoses (1) Pneumonia Status: Acute (2) Malignant hypertension Status: Acute (3) CHAN (acute kidney injury) Status: Resolved Comment: - Encourage PO intake (4) DVT prophylaxis Status: Acute Core Measure Documentation - Palliative Care Palliative Care/ Comfort Measures: Not Applicable - Core Measures Any of the following diagnoses?: none Exam - Constitutional Vitals: Temp Pulse Resp BP Pulse Ox 97.4 F L 44 L 18 173/83 100 10/23/19 06:30 10/23/19 06:30 10/23/19 06:30 10/23/19 06:30 10/23/19 06:30 General appearance: Present: no acute distress, well-nourished - EENT Eyes: Present: PERRL ENT: hearing intact, clear oral mucosa - Neck Neck: Present: supple, normal ROM - Respiratory Respiratory effort: normal Respiratory: bilateral: CTA - Cardiovascular Heart rate: 78 Rhythm: regular Heart Sounds: Present: S1 & S2. Absent: rub, click - Extremities Extremities: pulses symmetrical, No edema Peripheral Pulses: within normal limits - Abdominal General gastrointestinal: Present: soft, non-tender, non-distended, normal bowel sounds Male genitourinary: Present: normal - Integumentary Integumentary: Present: clear, warm, dry - Musculoskeletal Musculoskeletal: gait normal, strength equal bilaterally - Psychiatric Psychiatric: appropriate mood/affect, intact judgment & insight - Neurologic Neurologic: CNII-XII intact, moves all extremities Plan Activity: no restrictions Diet: regular Follow up with: DEVEN LIVINGSTON MD [Primary Care Provider] - 7 Days TORI HOPKINS MD [Staff Physician] - 7 Days
--- NOTE | 2019-10-23 07:00 | Progress Note ---
Assessment and Plan (1) Pneumonia Current Visit: Yes Status: Acute Qualifiers: Pneumonia type: due to unspecified organism Laterality: right Lung location: lower lobe of lung Qualified Code(s): J18.9 - Pneumonia, unspecified organism Plan to address problem: Patient placed on empiric IV antibiotics. We await blood culture results. Patient symptomatically better Patient states that he is still not back to normal and feels weak (2) Altered mental state Current Visit: Yes Status: Acute Qualifiers: Altered mental status type: unspecified Qualified Code(s): R41.82 - Altered mental status, unspecified Plan to address problem: Possibly secondary to the underlying infection. Will monitor mental status. (3) Malignant hypertension Current Visit: Yes Status: Acute Plan to address problem: We will resume routine home medications once reconciled. Patient will also be placed on PRN IV hydralazine for optimal blood pressure control (4) Acute kidney injury superimposed on chronic kidney disease Current Visit: Yes Status: Acute Plan to address problem: We will continue on IV fluid and monitor BUN and creatinine. Improved from 1.7 creatinine to 1.4 creatinine Continue IV fluids (5) DVT prophylaxis Current Visit: No Status: Acute (6) Full code status Current Visit: Yes Status: Acute Subjective Date of service: 10/22/19 Principal diagnosis: Right lower lobe pneumonia Interval history: 64-year-old male with history of hypertension, seizure disorder, history of CVA with right-sided weakness presenting with a 2-day history of generalized weakness and fever. He denies any chest pain or shortness of breath, no nausea vomiting, no hematuria or dysuria. He has had some abdominal pain especially in the lower abdomen. Patient was brought in by EMS from [facility] where he resides. He denies any sick contacts. Patient denies any recent travel and denies any exposure to anyone with COVID-19. Work-up in the emergency room including CT of the abdomen and pelvis reveals possible infectious process in the right lung base. Symptomatically better today Afebrile Objective - Constitutional Vitals: Vital Signs - 12hr 10/22/19 10/22/19 10/22/19 19:24 19:50 23:43 Temperature 99.2 F 98.0 F Pulse Rate 74 74 59 L Respiratory 20 18 Rate Blood Pressure 187/80 197/89 Blood Pressure [Left] O2 Sat by Pulse 100 97 Oximetry 10/23/19 10/23/19 01:29 06:30 Temperature 97.4 F L Pulse Rate 75 44 L Respiratory 18 Rate Blood Pressure Blood Pressure 173/83 [Left] O2 Sat by Pulse 100 Oximetry General appearance: Present: no acute distress, well-nourished - EENT Eyes: PERRL, EOM intact ENT: hearing intact, clear oral mucosa Ears: bilateral: normal - Neck Neck: supple, normal ROM - Respiratory Respiratory effort: normal Respiratory: bilateral: CTA, negative: rhonchi (Scattered) - Breasts Breasts: normal - Cardiovascular Heart rate: 78 Rhythm: regular Heart Sounds: Present: S1 & S2. Absent: gallop, rub Extremities: pulses intact, No edema, normal color, Full ROM - Gastrointestinal General gastrointestinal: Present: soft, non-tender, non-distended, normal bowel sounds - Genitourinary Male genitourinary: normal - Integumentary Integumentary: clear, warm, dry - Musculoskeletal Musculoskeletal: 1, strength equal bilaterally - Neurologic Neurologic: moves all extremities - Psychiatric Psychiatric: memory intact, appropriate mood/affect, intact judgment & insight - Labs CBC & Chem 7: 10/21/19 04:29 10/21/19 04:29 HEART Score - HEART Score Troponin: Troponin T < 0.010 ng/mL (0.00-0.029) 10/19/19 22:22
[2019-10-23 08:23] VITALS: BP 163/87
[2019-10-23] MEDS: cefTRIAXone/NS 2 GM/100 ML 2 GM/100 ML BAG IV SCH (09:24)
[2019-10-23] MEDS ORDERED: AZITHROMYCIN 250 MG TAB PO SCH (10:00)
== END 2019-10-23 10:40 | disposition home health service (06) | DRG 682 ==
LOC: ED 21:26 → 4A 10-20 01:55 → OBSVTOIN 10-21 14:00
PROVIDERS: ADMIT Internal Medicine Geriatric Medicine; ATTEND Internal Medicine
DX: N17.9 Acute kidney failure, unspecified (principal); J18.9 Pneumonia, unspecified organism; N41.0 Acute prostatitis; I12.9 Hypertensive chronic kidney disease with stage 1 through stage 4 chronic kidney disease, or unspecified chronic kidney disease; N18.9 Chronic kidney disease, unspecified; G40.909 Epilepsy, unspecified, not intractable, without status epilepticus; E78.5 Hyperlipidemia, unspecified; Z86.73 Personal history of transient ischemic attack (TIA), and cerebral infarction without residual deficits
CPT/HCPCS: 36415; 70450; 71045; 74176; 80048; 80053; 81001; 82140; 82550; 84484; 85025; 85610; 87040; 87086; 93005; 96365; 96366; G0378; J0456; J0696; J1644; J7030; J7050

== ENCOUNTER 2019-11-05 13:56 | Inpatient (IN) | payer MEDICARE, OTHER ==
[2019-11-05 15:16] LABS: Basophils # (Auto) 0.1 K/mm3 (0.0-0.1); Basophils % (Auto) 0.7 % (0.0-1.8); Eosinophils # (Auto) 0.3 K/mm3 (0.0-0.4); Hematocrit 28.7 % (35.5-45.6); Lymphocytes # (Auto) 1.1 K/mm3 (1.2-5.4); Lymphocytes % (Auto) 11.5 % (13.4-35.0); Mean Corpuscular HGB Conc 35 % (32-34); Mean Corpuscular Volume 89 fl (84-94); Monocytes # (Auto) 0.7 K/mm3 (0.0-0.8); Monocytes % (Auto) 7.9 % (0.0-7.3); Platelet Count 158 K/mm3 (140-440); Red Blood Count 3.23 M/mm3 (3.65-5.03); Red Cell Distribution Width 15.9 % (13.2-15.2)
--- NOTE | 2019-11-05 15:25 | XRay Report ---
CHEST 1 VIEW 11/05/2019 1:41 PM INDICATION / CLINICAL INFORMATION: Altered Mental Status. COMPARISON: 10/19/19 FINDINGS: SUPPORT DEVICES: None. HEART / MEDIASTINUM: No significant abnormality. LUNGS / PLEURA: No significant pulmonary or pleural abnormality. No pneumothorax. ADDITIONAL FINDINGS: No significant additional findings. IMPRESSION: 1. No acute findings. No change. Signer Name: Trinidad Dewitt MD Signed: 11/05/2019 3:20 PM Workstation Name: [id number]
[2019-11-05 15:26] LABS: INR 1.14 (0.87-1.13); Partial Thromboplastin Time 30.4 Sec. (24.2-36.6)
--- NOTE | 2019-11-05 15:38 | Cat Scan Report ---
CT BRAIN: 11/05/2019 INDICATION / CLINICAL INFORMATION: Altered Mental Status. COMPARISON: 10/19/2019 FINDINGS: BRAIN/INTRACRANIAL STRUCTURES: Unenhanced CT images of the brain were obtained and compared to the re cent prior exam from 10/19/2019. There has been no change. Again seen is extensive chronic changes, with prominent diffuse cerebral atrophy, extensive chronic w areli matter hypoattenuation, and evidence of chronic bilateral lacunar infarcts in the basal ganglia. There is no evidence of acute large vessel territory ischemic injury, hemorrhage, or mass. There are no abnormal extra-axial fluid collections. EXTRACRANIAL STRUCTURES: Unremarkable. IMPRESSION: No acute abnormality. Extensive chronic and age-related changes, stable when compared to 10/19/2019. All CT scans at this location are performed using dose reduction to ALARA by means of automated expos ure control. Signer Name: Berhane Davies MD Signed: 11/05/2019 3:33 PM Workstation Name: [id number]
[2019-11-05 15:41] LABS: Albumin 3.6 g/dL (3.9-5); Calcium 9.7 mg/dL (8.4-10.2)
[2019-11-05] MEDS ORDERED: SODIUM CHLORIDE 0.9% 1000 ML 1,000 ML IV ONE ×2 (16:07→16:08)
--- NOTE | 2019-11-05 17:54 | Emergency Department Report ---
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 Patient brought to the ED by EMS and technician inventory specialist is not available for interview and no phone number provided. EMS reports that since patient has been in their care he has been alert and responsive without alteration in mental status. Patient does not have any complaints of pain. Patient has had multiple recent ER visits and hospitalization for worsening stroke symptoms and most recently pneumonia. Patient has received several CTs heads, MRI head, and MRA brain/head and neck. As per medical record patient was also t scheduled for outpatient RAN on . Consult with cardiology 10/18. He was admitted here 10/18 to 10/22 for weakness/pneumonia/fever. - Related Data Previous Rx's Medication Instructions Recorded Last Taken Type Aspirin EC [Halfprin EC] 81 mg PO QDAY 30 Days #30 tablet 10/23/19 Unknown Rx AtorvaSTATin [Lipitor] 40 mg PO QHS #30 10/23/19 Unknown Rx Clopidogrel [Plavix] 75 mg PO QDAY 30 Days #30 tablet 10/23/19 Unknown Rx Nifedipine ER 60 mg PO DAILY #30 10/23/19 Unknown Rx Valsartan 80 mg PO QDAY 30 Days #30 tablet 10/23/19 Unknown Rx levETIRAcetam 500 mg PO BID #60 10/23/19 Unknown Rx levoFLOXacin [Levaquin] 750 mg PO QDAY #7 tablet 10/23/19 Unknown Rx Allergies Allergy/AdvReac Type Severity Reaction Status Date / Time No Known Allergies Allergy Verified 11/05/19 14:32 ED Review of Systems ROS: Stated complaint: NOT ACTING RIGHT Other details as noted in HPI Comment: All other systems reviewed and negative ED Past Medical Hx - Past Medical History Previous Medical History?: Yes Hx Hypertension: Yes Hx CVA: Yes (R sided weakness, TIA) Hx Seizures: Yes - Surgical History Additional Surgical History: Left hand surgery, "tendons" - Social History Smoking Status: Unknown if ever smoked - Medications Home Medications: Home Medications Medication Instructions Recorded Confirmed Last Taken Type Aspirin EC [Halfprin EC] 81 mg PO QDAY 30 Days #30 tablet 10/23/19 Unknown Rx AtorvaSTATin [Lipitor] 40 mg PO QHS #30 10/23/19 Unknown Rx Clopidogrel [Plavix] 75 mg PO QDAY 30 Days #30 tablet 10/23/19 Unknown Rx Nifedipine ER 60 mg PO DAILY #30 10/23/19 Unknown Rx Valsartan 80 mg PO QDAY 30 Days #30 tablet 10/23/19 Unknown Rx levETIRAcetam 500 mg PO BID #60 10/23/19 Unknown Rx levoFLOXacin [Levaquin] 750 mg PO QDAY #7 tablet 10/23/19 Unknown Rx ED Physical Exam - General Limitations: No Limitations - Other Other exam information: General: No acute distress Head: Atraumatic Eyes: normal appearance ENT: Moist mucous membranes Neck: Normal appearance, no midline tenderness Chest: Clear to auscultation bilaterally CV: Regular rate and rhythm Abdomen: Soft, normal bowel sounds, nontender, nondistended, no rebound or guarding : blood in diaper at penis. Uncircumcised. RN noted clots from penis prior to straight cath. She was able to place catheter but no urine output. She was instructed to Place Bellamy. Urine was producing yellow and clear yellow urine without gross blood Back: Normal inspection Extremity: Normal inspection, full range of motion Neuro: Alert O x 3, right-sided paralysis with contracture of right arm. 4/5 movement left arm and leg. Psych: Appropriate behavior Skin: No rash ED Course Vital Signs 11/05/19 11/05/19 11/05/19 14:26 14:30 14:45 Temperature 98.5 F Pulse Rate 80 79 92 H Respiratory 17 14 15 Rate Blood Pressure 132/79 132/79 Blood Pressure 147/75 [Left] O2 Sat by Pulse 100 Oximetry 11/05/19 11/05/19 11/05/19 15:00 15:15 15:30 Temperature Pulse Rate 92 H 84 79 Respiratory 20 17 14 Rate Blood Pressure 179/98 156/91 130/79 Blood Pressure [Left] O2 Sat by Pulse Oximetry 11/05/19 11/05/19 11/05/19 15:45 16:01 16:15 Temperature Pulse Rate 69 90 78 Respiratory 13 16 13 Rate Blood Pressure 121/71 142/83 154/83 Blood Pressure [Left] O2 Sat by Pulse Oximetry 11/05/19 11/05/19 11/05/19 16:30 16:45 17:01 Temperature Pulse Rate 80 90 92 H Respiratory 15 19 17 Rate Blood Pressure 149/79 153/93 153/93 Blood Pressure [Left] O2 Sat by Pulse Oximetry 11/05/19 11/05/19 11/05/19 17:15 17:30 17:45 Temperature Pulse Rate 88 Respiratory 14 16 Rate Blood Pressure 161/79 141/77 140/60 Blood Pressure [Left] O2 Sat by Pulse Oximetry 11/05/19 11/05/19 11/05/19 18:00 18:15 18:30 Temperature Pulse Rate 85 84 89 Respiratory 17 15 14 Rate Blood Pressure 128/57 128/59 123/63 Blood Pressure [Left] O2 Sat by Pulse Oximetry - Lab Data Result diagrams: 11/05/19 14:40 11/05/19 14:40 Lab Results 11/05/19 11/05/19 11/05/19 Range/Units 14:40 14:40 14:40 WBC 9.3 (4.5-11.0) K/mm3 RBC 3.23 L (3.65-5.03) M/mm3 Hgb 10.0 L (11.8-15.2) gm/dl Hct 28.7 L (35.5-45.6) % MCV 89 (84-94) fl MCH 31 (28-32) pg MCHC 35 H (32-34) % RDW 15.9 H (13.2-15.2) % Plt Count 158 (140-440) K/mm3 Lymph % (Auto) 11.5 L (13.4-35.0) % Dav[place] % (Auto) 7.9 H (0.0-7.3) % Eos % (Auto) 3.0 (0.0-4.3) % Baso % (Auto) 0.7 (0.0-1.8) % Lymph # 1.1 L (1.2-5.4) K/mm3 Davison # 0.7 (0.0-0.8) K/mm3 Eos # 0.3 (0.0-0.4) K/mm3 Baso # 0.1 (0.0-0.1) K/mm3 Seg Neutrophils % 76.9 H (40.0-70.0) % Seg Neutrophils # 7.1 (1.8-7.7) K/mm3 PT 14.8 (12.2-14.9) Sec. INR 1.14 H (0.87-1.13) APTT 30.4 (24.2-36.6) Sec. Sodium 147 H (137-145) mmol/L Potassium 3.8 (3.6-5.0) mmol/L Chloride 110.2 H (98-107) mmol/L Carbon Dioxide 24 (22-30) mmol/L Anion Gap 17 mmol/L BUN 37 H (9-20) mg/dL Creatinine 1.7 H (0.8-1.3) mg/dL Estimated GFR 50 ml/min BUN/Creatinine Ratio 22 % Glucose 90 (75-100) mg/dL Lactic Acid (0.7-2.0) mmol/L Calcium 9.7 (8.4-10.2) mg/dL Total Bilirubin 0.40 (0.1-1.2) mg/dL AST 26 (5-40) units/L ALT 24 (7-56) units/L Alkaline Phosphatase 55 (35-129) units/L Total Creatine Kinase 425 H (55-170) units/L Total Protein 6.9 (6.3-8.2) g/dL Albumin 3.6 L (3.9-5) g/dL Albumin/Globulin Ratio 1.1 % Urine Color (Yellow) Urine Turbidity (Clear) Urine pH (5.0-7.0) Ur Specific [place] (1.003-1.030) Urine Protein (Negative) mg/dL Urine Glucose (UA) (Negative) mg/dL Urine Ketones (Negative) mg/dL Urine Blood (Negative) Urine Nitrite (Negative) Urine Bilirubin (Negative) Urine Urobilinogen (<2.0) mg/dL Ur Leukocyte Esterase (Negative) Urine WBC (Auto) (0.0-6.0) /HPF Urine RBC (Auto) (0.0-6.0) /HPF U Epithel Cells (Auto) (0-13.0) /HPF Urine Bacteria (Auto) (Negative) /HPF Urine Mucus /HPF Salicylates (2.8-20.0) mg/dL Acetaminophen (10.0-30.0) ug/mL Plasma/Serum Alcohol (0-0.07) % 11/05/19 11/05/19 11/05/19 Range/Units 14:40 14:40 14:40 WBC (4.5-11.0) K/mm3 RBC (3.65-5.03) M/mm3 Hgb (11.8-15.2) gm/dl Hct (35.5-45.6) % MCV (84-94) fl MCH (28-32) pg MCHC (32-34) % RDW (13.2-15.2) % Plt Count (140-440) K/mm3 Lymph % (Auto) (13.4-35.0) % Dav[place] % (Auto) (0.0-7.3) % Eos % (Auto) (0.0-4.3) % Baso % (Auto) (0.0-1.8) % Lymph # (1.2-5.4) K/mm3 Davison # (0.0-0.8) K/mm3 Eos # (0.0-0.4) K/mm3 Baso # (0.0-0.1) K/mm3 Seg Neutrophils % (40.0-70.0) % Seg Neutrophils # (1.8-7.7) K/mm3 PT (12.2-14.9) Sec. INR (0.87-1.13) APTT (24.2-36.6) Sec. Sodium (137-145) mmol/L Potassium (3.6-5.0) mmol/L Chloride (98-107) mmol/L Carbon Dioxide (22-30) mmol/L Anion Gap mmol/L BUN (9-20) mg/dL Creatinine (0.8-1.3) mg/dL Estimated GFR ml/min BUN/Creatinine Ratio % Glucose (75-100) mg/dL Lactic Acid 1.60 (0.7-2.0) mmol/L Calcium (8.4-10.2) mg/dL Total Bilirubin (0.1-1.2) mg/dL AST (5-40) units/L ALT (7-56) units/L Alkaline Phosphatase (35-129) units/L Total Creatine Kinase (55-170) units/L Total Protein (6.3-8.2) g/dL Albumin (3.9-5) g/dL Albumin/Globulin Ratio % Urine Color (Yellow) Urine Turbidity (Clear) Urine pH (5.0-7.0) Ur Specific [place] (1.003-1.030) Urine Protein (Negative) mg/dL Urine Glucose (UA) (Negative) mg/dL Urine Ketones (Negative) mg/dL Urine Blood (Negative) Urine Nitrite (Negative) Urine Bilirubin (Negative) Urine Urobilinogen (<2.0) mg/dL Ur Leukocyte Esterase (Negative) Urine WBC (Auto) (0.0-6.0) /HPF Urine RBC (Auto) (0.0-6.0) /HPF U Epithel Cells (Auto) (0-13.0) /HPF Urine Bacteria (Auto) (Negative) /HPF Urine Mucus /HPF Salicylates < 0.3 L (2.8-20.0) mg/dL Acetaminophen 5.0 L (10.0-30.0) ug/mL Plasma/Serum Alcohol (0-0.07) % 11/05/19 11/05/19 Range/Units 14:40 17:48 WBC (4.5-11.0) K/mm3 RBC (3.65-5.03) M/mm3 Hgb (11.8-15.2) gm/dl Hct (35.5-45.6) % MCV (84-94) fl MCH (28-32) pg MCHC (32-34) % RDW (13.2-15.2) % Plt Count (140-440) K/mm3 Lymph % (Auto) (13.4-35.0) % Davison % (Auto) (0.0-7.3) % Eos % (Auto) (0.0-4.3) % Baso % (Auto) (0.0-1.8) % Lymph # (1.2-5.4) K/mm3 [place] # (0.0-0.8) K/mm3 Eos # (0.0-0.4) K/mm3 Baso # (0.0-0.1) K/mm3 Seg Neutrophils % (40.0-70.0) % Seg Neutrophils # (1.8-7.7) K/mm3 PT (12.2-14.9) Sec. INR (0.87-1.13) APTT (24.2-36.6) Sec. Sodium (137-145) mmol/L Potassium (3.6-5.0) mmol/L Chloride (98-107) mmol/L Carbon Dioxide (22-30) mmol/L Anion Gap mmol/L BUN (9-20) mg/dL Creatinine (0.8-1.3) mg/dL Estimated GFR ml/min BUN/Creatinine Ratio % Glucose (75-100) mg/dL Lactic Acid (0.7-2.0) mmol/L Calcium (8.4-10.2) mg/dL Total Bilirubin (0.1-1.2) mg/dL AST (5-40) units/L ALT (7-56) units/L Alkaline Phosphatase (35-129) units/L Total Creatine Kinase (55-170) units/L Total Protein (6.3-8.2) g/dL Albumin (3.9-5) g/dL Albumin/Globulin Ratio % Urine Color Yellow (Yellow) Urine Turbidity Clear (Clear) Urine pH 5.0 (5.0-7.0) Ur Specific [place] 1.018 (1.003-1.030) Urine Protein <15 mg/dl (Negative) mg/dL Urine Glucose (UA) 50 (Negative) mg/dL Urine Ketones Neg (Negative) mg/dL Urine Blood Lg (Negative) Urine Nitrite Neg (Negative) Urine Bilirubin Neg (Negative) Urine Urobilinogen < 2.0 (<2.0) mg/dL Ur Leukocyte Esterase Neg (Negative) Urine WBC (Auto) 30.0 H (0.0-6.0) /HPF Urine RBC (Auto) > 182.0 (0.0-6.0) /HPF U Epithel Cells (Auto) < 1.0 (0-13.0) /HPF Urine Bacteria (Auto) 1+ (Negative) /HPF Urine Mucus Few /HPF Salicylates (2.8-20.0) mg/dL Acetaminophen (10.0-30.0) ug/mL Plasma/Serum Alcohol < 0.01 (0-0.07) % - Radiology Data Radiology results: report reviewed CHEST 1 VIEW 11/05/2019 1:41 PM INDICATION / CLINICAL INFORMATION: Altered Mental Status. COMPARISON: 10/19/19 FINDINGS: SUPPORT DEVICES: None. HEART / MEDIASTINUM: No significant abnormality. LUNGS / PLEURA: No significant pulmonary or pleural abnormality. No pneumothorax. ADDITIONAL FINDINGS: No significant additional findings. IMPRESSION: 1. No acute findings. No change. CT BRAIN: 11/05/2019 INDICATION / CLINICAL INFORMATION: Altered Mental Status. COMPARISON: 10/19/2019 FINDINGS: BRAIN/INTRACRANIAL STRUCTURES: Unenhanced CT images of the brain were obtained and compared to the recent prior exam from 10/19/2019. There has been no change. Again seen is extensive chronic changes, with prominent diffuse cerebral atrophy, extensive chronic white matter hypoattenuation, and evidence of chronic bilateral lacunar infarcts in the basal gang nestor. There is no evidence of acute large vessel territory ischemic injury, hemorrhage, or mass. There are no abnormal extra-axial fluid collections. EXTRACRANIAL STRUCTURES: Unremarkable. IMPRESSION: No acute abnormality. Extensive chronic and age-related changes, stable when compared to 10/19/2019. - Medical Decision Making Patient sent by technician inventory specialist for alteration in mental status. Patient has been alert here and contact information for technician inventory specialist not available to determine further clarification of alteration mental status. At the ED work-up. Blood was noticed in his diaper and around penis without findings of laceration. Urine does not exhibit gross hematuria. UA reveals UTI patient treated with IV Rocephin. Given comorbidities, alteration in mental status at home, and positive UTI patient will be admitted to the hospital for further treatment and observation. CT head and chest x-ray unremarkable. Patient also has mild renal sufficiency and dehydration treated with IVs normal saline Critical Care Time: No Critical care attestation.: If time is entered above; I have spent that time in minutes in the direct care of this critically ill patient, excluding procedure time. ED Disposition Clinical Impression: Transient alteration of awareness, UTI (urinary tract infection), History of CVA with residual deficit, Dehydration, Mild renal insufficiency Disposition: OP ADMIT IP TO THIS HOSP Is pt being admited?: Yes Condition: Stable Time of Disposition: 19:04 (Dr. Carmen/hospitalist)
[2019-11-05 18:22] LABS: Bacteria,Urine 1+ /HPF (Negative); Bilirubin,Urine NEG (Negative); Blood,Urine LG (Negative); Color,Urine Yellow (Yellow); Mucus,Urine FEW /HPF; Protein,Urine <15 mg/dL mg/dL (Negative); Urobilinogen,Urine < 2.0 mg/dL (<2.0)
[2019-11-05 18:30] LABS: RBC,Urine > 182.0 /HPF (0.0-6.0)
[2019-11-05] MEDS ORDERED: cefTRIAXone/NS 1 GM/50 ML 1 GM/50 ML BAG IV ONE ×2 (18:54→20:23)
--- NOTE | 2019-11-05 19:11 | History and Physical Report ---
History of Present Illness Chief complaint: Hes acting more confused History of present illness: 64 YO Male with CVA with RHP on DAPT, HTN, HLD, Seizure Disorder, Vascular Dementia, Cerebral Atherosclerosis presents to ED for evaluation. Patient is confused with cognitive slowing and is unable to provide history. Patient history provided by ED staff, EMS staff, and pediatric medical assistant. As per pediatric medical assistant the patient was found to have increased confusion today. EMS was notified and upon arrival the patient was found to be in distress and subsequently transported to [facility] for further evaluation and care. Patient seen and evaluated in the emergency department. Lab and imaging studies reviewed. Patient found to have metabolic encephalopathy suspected secondary to urinary tract infection, as well as acute kidney injury secondary to volume depletion. Patient admitted to medical floor and treated with IV fluid resuscitation therapy as well as IV antibiotic therapy. Prior admission on 10/21/2019 reviewed. All medication listed at time of admission has been reconciled. No further history is obtainable. Patient is confused at the time of my exam but has a positive gag reflex and is able to protect his airway without difficulty. Advanced care planning conducted in ED. Past History Past Medical History: diabetes, hypertension, seizures, stroke, other (See HPI) Past Surgical History: Other (Left hand surgery) Social history: single Family history: hypertension Medications and Allergies Allergies Allergy/AdvReac Type Severity Reaction Status Date / Time No Known Allergies Allergy Verified 11/05/19 14:32 Home Medications Medication Instructions Recorded Confirmed Last Taken Type Aspirin EC [Halfprin EC] 81 mg PO QDAY 30 Days #30 tablet 10/23/19 Unknown Rx AtorvaSTATin [Lipitor] 40 mg PO QHS #30 10/23/19 Unknown Rx Clopidogrel [Plavix] 75 mg PO QDAY 30 Days #30 tablet 10/23/19 Unknown Rx Nifedipine ER 60 mg PO DAILY #30 10/23/19 Unknown Rx Valsartan 80 mg PO QDAY 30 Days #30 tablet 10/23/19 Unknown Rx levETIRAcetam 500 mg PO BID #60 10/23/19 Unknown Rx levoFLOXacin [Levaquin] 750 mg PO QDAY #7 tablet 10/23/19 Unknown Rx Active Meds: Active Medications Ceftriaxone Sodium (Rocephin/Ns 1 Gm/50 Ml) 1 gm in 50 mls @ 100 mls/hr IV ONCE ONE; Protocol Stop: 11/05/19 19:23 Review of Systems ROS unobtainable: due to mental status Exam - Constitutional Vitals: Temp Pulse Resp BP Pulse Ox 98.5 F 89 14 123/63 100 11/05/19 14:30 11/05/19 18:30 11/05/19 18:30 11/05/19 18:30 11/05/19 14:30 General appearance: Present: cachectic - EENT Eyes: Present: PERRL ENT: hearing intact, clear oral mucosa - Neck Neck: Present: supple, normal ROM - Respiratory Respiratory effort: normal Respiratory: bilateral: diminished - Cardiovascular Heart Sounds: Present: S1 & S2. Absent: rub, click - Extremities Extremities: pulses symmetrical, No edema Peripheral Pulses: within normal limits - Abdominal General gastrointestinal: Present: soft, non-tender, non-distended, normal bowel sounds Male genitourinary: Present: normal - Integumentary Integumentary: Present: dry, clammy - Musculoskeletal Musculoskeletal: generalized weakness - Psychiatric Psychiatric: no appropriate mood/affect, no intact judgment & insight, no memory intact - Neurologic Neurologic: CNII-XII intact, focal deficits, no moves all extremities, no gait normal Results - Labs CBC & Chem 7: 11/05/19 14:40 11/05/19 14:40 Labs: Abnormal lab results 11/05/19 11/05/19 11/05/19 Range/Units 14:40 14:40 14:40 RBC 3.23 L (3.65-5.03) M/mm3 Hgb 10.0 L (11.8-15.2) gm/dl Hct 28.7 L (35.5-45.6) % MCHC 35 H (32-34) % RDW 15.9 H (13.2-15.2) % Lymph % (Auto) 11.5 L (13.4-35.0) % [place] % (Auto) 7.9 H (0.0-7.3) % Lymph # 1.1 L (1.2-5.4) K/mm3 Seg Neutrophils % 76.9 H (40.0-70.0) % INR 1.14 H (0.87-1.13) Sodium 147 H (137-145) mmol/L Chloride 110.2 H (98-107) mmol/L BUN 37 H (9-20) mg/dL Creatinine 1.7 H (0.8-1.3) mg/dL Total Creatine Kinase 425 H (55-170) units/L Albumin 3.6 L (3.9-5) g/dL Urine WBC (Auto) (0.0-6.0) /HPF Salicylates (2.8-20.0) mg/dL Acetaminophen (10.0-30.0) ug/mL 11/05/19 11/05/19 11/05/19 Range/Units 14:40 14:40 17:48 RBC (3.65-5.03) M/mm3 Hgb (11.8-15.2) gm/dl Hct (35.5-45.6) % MCHC (32-34) % RDW (13.2-15.2) % Lymph % (Auto) (13.4-35.0) % [place] % (Auto) (0.0-7.3) % Lymph # (1.2-5.4) K/mm3 Seg Neutrophils % (40.0-70.0) % INR (0.87-1.13) Sodium (137-145) mmol/L Chloride (98-107) mmol/L BUN (9-20) mg/dL Creatinine (0.8-1.3) mg/dL Total Creatine Kinase (55-170) units/L Albumin (3.9-5) g/dL Urine WBC (Auto) 30.0 H (0.0-6.0) /HPF Salicylates < 0.3 L (2.8-20.0) mg/dL Acetaminophen 5.0 L (10.0-30.0) ug/mL Assessment and Plan - Patient Problems (1) Metabolic encephalopathy Current Visit: Yes Status: Acute Plan to address problem: CT head, neuro check, seizure precautions, aspiration cautions, fall pr ecautions, IV fluid resuscitation therapy. (2) Urinary tract infection Current Visit: Yes Status: Acute Qualifiers: Encounter type: initial encounter Plan to address problem: Urinalysis, CBC, IV antibiotic therapy, IV fluid resuscitation therapy. (3) Acute kidney injury (CHAN) with acute tubular necrosis (ATN) Current Visit: Yes Status: Acute Plan to address problem: IV fluid resuscitation therapy, BMP, repeat BMP in a.m. to monitor serum creatinine. (4) Volume depletion Current Visit: Yes Status: Acute Plan to address problem: IV fluid resuscitation therapy, monitor urine output every shift, supportive care. (5) Vascular dementia Current Visit: Yes Status: Acute Qualifiers: Dementia behavioral disturbance: without behavioral disturbance Qualified Code(s): F01.50 - Vascular dementia without behavioral disturbance Plan to address problem: Verbal prompting, verbal redirection, supportive care, benzodiazepine therapy as clinically indicated. (6) Cerebral atherosclerosis Current Visit: Yes Status: Acute Plan to address problem: Supportive care, continue medical management, risk factor reduction. (7) DVT prophylaxis Current Visit: Yes Status: Acute Plan to address problem: SCD to bilateral lower extremities while in bed, prophylactic anticoagulation (8) Advance care planning Current Visit: Yes Status: Acute Plan to address problem: Disease education conducted, patient caregiver knowledges understanding and agreement with care plan, prognosis discussed, +30 minutes.
[2019-11-05] MEDS ORDERED: ONDANSETRON 4 MG/2 ML INJ IV PRN (19:12)
[2019-11-05] MEDS ORDERED: ACETAMINOPHEN 325 MG TAB PO PRN (19:12)
[2019-11-05] MEDS ORDERED: SODIUM CHLORIDE 0.9% 1000 ML 1,000 ML IV SCH (19:15)
[2019-11-05] MEDS: HEPARIN 5,000 UNIT/1 ML VIAL SUB-Q SCH (21:48)
[2019-11-05] MEDS: levETIRAcetam 500 MG TAB PO SCH (21:48)
[2019-11-05] MEDS ORDERED: NON-FORMULARY EACH (Levetiracetam 500 MG) PO SCH (22:00)
[2019-11-06 06:31] LABS: BUN/Creatinine Ratio 21; Blood Urea Nitrogen 29 mg/dL (9-20); Calcium 9.2 mg/dL (8.4-10.2); Hemolysis Index 4
--- NOTE | 2019-11-06 08:10 | Progress Note ---
Assessment and Plan Assessment and plan: (1) Metabolic encephalopathy Current Visit: Yes Status: Acute Plan to address problem: CT head is negative, neuro check, seizure precautions, aspiration cautions, fall precautions, IV fluid resuscitation therapy. History of of CVA with residual right-sided hemiplegia (2) Urinary tract infection Current Visit: Yes Status: Acute Qualifiers: Encounter type: initial encounter Plan to address problem: Urinalysis is suggestive of UTI and urine culture is pending Continue with IV fluids and IV antibiotics (3) Acute kidney injury (CHAN) with acute tubular necrosis (ATN) Current Visit: Yes Status: Acute Plan to address problem: Continue with IV fluids BMP from this morning showed some improvement (4) Volume depletion Current Visit: Yes Status: Acute Plan to address problem: IV fluid resuscitation therapy, monitor urine output every shift, supportive care. (5) Vascular dementia Current Visit: Yes Status: Acute Qualifiers: Dementia behavioral disturbance: without behavioral disturbance Qualified Code(s): F01.50 - Vascular dementia without behavioral disturbance Plan to address problem: Supportive care (6) Cerebral atherosclerosis Current Visit: Yes Status: Acute Plan to address problem: Supportive care, continue medical management, risk factor reduction. (7) DVT prophylaxis Current Visit: Yes Status: Acute Plan to address problem: SCD to bilateral lower extremities while in bed, prophylactic anticoagulation (8) Advance care planning Current Visit: Yes Status: Acute Plan to address problem: Disease education conducted, patient caregiver knowledges understanding and agreement with care plan, prognosis discussed. Disposition; continue inpatient care, need PT/OT evaluation. History Interval history: Patient was seen and evaluated this morning Patient is oriented to self and place Patient answer questions slow to answer Patient said he had history of CVA with residual right-sided weakness Hospitalist Physical - Physical exam Narrative exam: Not in cardiopulmonary distress. The patient appeared well nourished and normally developed. Vital signs as documented. Head exam is unremarkable. No scleral icterus . Neck is without jugular venous distension, thyromegaly, or carotid bruits. Lungs are clear to auscultation. Cardiac exam reveals regular rate and Rhythm. Abdominal exam reveals normal bowel sounds, nontender, no organomegaly. Extremities are nonedematous and both femoral and pedal pulses are normal. ORAL SURGERY PHYSICIAN: Right hemiplegia - Constitutional Vitals: Temp Pulse Resp BP Pulse Ox 97.8 F 66 15 154/79 100 11/06/19 04:52 11/06/19 04:52 11/06/19 07:45 11/06/19 04:52 11/06/19 04:52 General appearance: Present: cachectic Results - Labs CBC & Chem 7: 11/05/19 14:40 11/06/19 05:07 Labs: Laboratory Last Values WBC 9.3 K/mm3 (4.5-11.0) 11/05/19 14:40 RBC 3.23 M/mm3 (3.65-5.03) L 11/05/19 14:40 Hgb 10.0 gm/dl (11.8-15.2) L 11/05/19 14:40 Hct 28.7 % (35.5-45.6) L 11/05/19 14:40 MCV 89 fl (84-94) 11/05/19 14:40 MCH 31 pg (28-32) 11/05/19 14:40 MCHC 35 % (32-34) H 11/05/19 14:40 RDW 15.9 % (13.2-15.2) H 11/05/19 14:40 Plt Count 158 K/mm3 (140-440) 11/05/19 14:40 Lymph % (Auto) 11.5 % (13.4-35.0) L 11/05/19 14:40 [place] % (Auto) 7.9 % (0.0-7.3) H 11/05/19 14:40 Eos % (Auto) 3.0 % (0.0-4.3) 11/05/19 14:40 Baso % (Auto) 0.7 % (0.0-1.8) 11/05/19 14:40 Lymph # 1.1 K/mm3 (1.2-5.4) L 11/05/19 14:40 [place] # 0.7 K/mm3 (0.0-0.8) 11/05/19 14:40 Eos # 0.3 K/mm3 (0.0-0.4) 11/05/19 14:40 Baso # 0.1 K/mm3 (0.0-0.1) 11/05/19 14:40 Seg Neutrophils % 76.9 % (40.0-70.0) H 11/05/19 14:40 Seg Neutrophils # 7.1 K/mm3 (1.8-7.7) 11/05/19 14:40 PT 14.8 Sec. (12.2-14.9) 11/05/19 14:40 INR 1.14 (0.87-1.13) H 11/05/19 14:40 APTT 30.4 Sec. (24.2-36.6) 11/05/19 14:40 Sodium 144 mmol/L (137-145) 11/06/19 05:07 Potassium 3.7 mmol/L (3.6-5.0) 11/06/19 05:07 Chloride 110.5 mmol/L (98-107) H 11/06/19 05:07 Carbon Dioxide 21 mmol/L (22-30) L 11/06/19 05:07 Anion Gap 16 mmol/L 11/06/19 05:07 BUN 29 mg/dL (9-20) H 11/06/19 05:07 Creatinine 1.4 mg/dL (0.8-1.3) H 11/06/19 05:07 Estimated GFR > 60 ml/min 11/06/19 05:07 BUN/Creatinine Ratio 21 % 11/06/19 05:07 Glucose 90 mg/dL (75-100) 11/06/19 05:07 POC Glucose 95 (70-105) 11/06/19 07:59 Lactic Acid 1.60 mmol/L (0.7-2.0) 11/05/19 14:40 Calcium 9.2 mg/dL (8.4-10.2) 11/06/19 05:07 Total Bilirubin 0.40 mg/dL (0.1-1.2) 11/05/19 14:40 AST 26 units/L (5-40) 11/05/19 14:40 ALT 24 units/L (7-56) 11/05/19 14:40 Alkaline Phosphatase 55 units/L (35-129) 11/05/19 14:40 Total Creatine Kinase 425 units/L (55-170) H 11/05/19 14:40 Total Protein 6.9 g/dL (6.3-8.2) 11/05/19 14:40 Albumin 3.6 g/dL (3.9-5) L 11/05/19 14:40 Albumin/Globulin Ratio 1.1 % 11/05/19 14:40 Urine Color Yellow (Yellow) 11/05/19 17:48 Urine Turbidity Clear (Clear) 11/05/19 17:48 Urine pH 5.0 (5.0-7.0) 11/05/19 17:48 Ur Specific [place] 1.018 (1.003-1.030) 11/05/19 17:48 Urine Protein <15 mg/dl mg/dL (Negative) 11/05/19 17:48 Urine Glucose (UA) 50 mg/dL (Negative) 11/05/19 17:48 Urine Ketones Neg mg/dL (Negative) 11/05/19 17:48 Urine Blood Lg (Negative) 11/05/19 17:48 Urine Nitrite Neg (Negative) 11/05/19 17:48 Urine Bilirubin Neg (Negative) 11/05/19 17:48 Urine Urobilinogen < 2.0 mg/dL (<2.0) 11/05/19 17:48 Ur Leukocyte Esterase Neg (Negative) 11/05/19 17:48 Urine WBC (Auto) 30.0 /HPF (0.0-6.0) H 11/05/19 17:48 Urine RBC (Auto) > 182.0 /HPF (0.0-6.0) 11/05/19 17:48 U Epithel Cells (Auto) < 1.0 /HPF (0-13.0) 11/05/19 17:48 Urine Bacteria (Auto) 1+ /HPF (Negative) 11/05/19 17:48 Urine Mucus Few /HPF 11/05/19 17:48 Salicylates < 0.3 mg/dL (2.8-20.0) L 11/05/19 14:40 Acetaminophen 5.0 ug/mL (10.0-30.0) L 11/05/19 14:40 Plasma/Serum Alcohol < 0.01 % (0-0.07) 11/05/19 14:40 Bellamy/IV: Voiding Method Indwelling Catheter IV Catheter Type [Left INT / Saline Lock Antecubital] Active Medications - Current Medications Current Medications: Generic Name Dose Route Start Last Admin Trade Name Freq PRN Reason Stop Dose Admin Acetaminophen 650 mg 11/05/19 19:12 Tylenol PO Q4H PRN Pain MILD(1-3)/Fever >100.5/REED Aspirin 81 mg 11/06/19 10:00 Halfprin Ec PO QDAY NGOC Atorvastatin Calcium 40 mg 11/05/19 22:00 11/05/19 21:48 Lipitor PO 40 mg QHS NGOC Administration Clopidogrel Bisulfate 75 mg 11/06/19 10:00 Plavix PO QDAY NGOC Heparin Sodium (Porcine) 5,000 unit 11/05/19 22:00 11/05/19 21:48 Heparin SUB-Q 5,000 unit Q12HR NGOC Administration Sodium Chloride 1,000 mls @ 100 mls/hr 11/05/19 19:15 Nacl 0.9% 1000 Ml IV DIRECT NGOC Ceftriaxone Sodium 1 gm in 50 mls @ 100 mls/hr 11/06/19 10:00 Rocephin/Ns 1 Gm/50 Ml IV 11/10/19 12:00 Q24HR [facility] Protocol Levetiracetam 500 mg 11/05/19 22:00 11/05/19 21:48 Keppra PO 500 mg BID NGOC Administration Nifedipine 60 mg 11/06/19 10:00 Procardia Xl PO QDAY NGOC Ondansetron HCl 4 mg 11/05/19 19:12 Zofran IV Q8H PRN Nausea And Vomiting Sodium Chloride 10 ml 11/05/19 22:00 11/05/19 21:52 Sodium Chloride Flush Syringe 10 Ml IV Not Given BID [facility] Sodium Chloride 10 ml 11/05/19 19:12 Sodium Chloride Flush Syringe 10 Ml IV PRN PRN LINE FLUSH Valsartan 80 mg 11/06/19 10:00 Diovan PO QDAY [facility]
[2019-11-06] MEDS ORDERED: VALSARTAN 80 MG PO SCH (10:00)
[2019-11-06] MEDS ORDERED: NON-FORMULARY EACH (Nifedipine Er 60 MG) PO SCH (10:00)
[2019-11-06] MEDS: VALSARTAN 40 MG TAB PO SCH (11:16)
[2019-11-06] MEDS: ASPIRIN EC 81 MG TAB PO SCH (11:16)
[2019-11-06] MEDS: HEPARIN 5,000 UNIT/1 ML VIAL SUB-Q SCH ×2 (11:16→21:00)
[2019-11-06] MEDS: CLOPIDOGREL 75 MG TAB PO SCH (11:21)
[2019-11-06] MEDS: levETIRAcetam 500 MG TAB PO SCH ×2 (11:21→21:00)
[2019-11-06] MEDS: cefTRIAXone/NS 1 GM/50 ML 1 GM/50 ML BAG IV SCH (11:22)
[2019-11-06] MEDS: NIFEdipine XL 60 MG TAB PO SCH (11:22)
--- NOTE | 2019-11-07 07:56 | Progress Note ---
Assessment and Plan Assessment and plan: (1) Metabolic encephalopathy Current Visit: Yes Status: Acute Plan to address problem: CT head is negative, neuro check, seizure precautions, aspiration cautions, fall precautions, IV fluid resuscitation therapy. History of of CVA with residual right-sided hemiplegia (2) Urinary tract infection Current Visit: Yes Status: Acute Qualifiers: Encounter type: initial encounter Plan to address problem: Urinalysis is suggestive of UTI and urine culture is negative, and will stop the IV Rocephin (3) Acute kidney injury (CHAN) with acute tubular necrosis (ATN) Current Visit: Yes Status: Acute Plan to address problem: Continue with IV fluids BMP from this morning showed some improvement (4) Volume depletion Current Visit: Yes Status: Acute Plan to address problem: IV fluid resuscitation therapy, monitor urine output every shift, supportive care. (5) Vascular dementia Current Visit: Yes Status: Acute Qualifiers: Dementia behavioral disturbance: without behavioral disturbance Qualified Code(s): F01.50 - Vascular dementia without behavioral disturbance Plan to address problem: Supportive care (6) Cerebral atherosclerosis Current Visit: Yes Status: Acute Plan to address problem: Supportive care, continue medical management, risk factor reduction. (7) DVT prophylaxis Current Visit: Yes Status: Acute Plan to address problem: SCD to bilateral lower extremities while in bed, prophylactic anticoagulation (8) Advance care planning Current Visit: Yes Status: Acute Plan to address problem: Disease education conducted, patient caregiver knowledges understanding and agreement with care plan, prognosis discussed. Disposition; PT OT evaluated and recommended subacute rehab. Will discuss with case management. History Interval history: Patient was seen and evaluated this morning Patient is oriented to self and place Patient answer questions slow to answer Patient said he had history of CVA with residual right-sided weakness Hospitalist Physical - Physical exam Narrative exam: Not in cardiopulmonary distress. The patient appeared well nourished and normally developed. Vital signs as documented. Head exam is unremarkable. No scleral icterus . Neck is without jugular venous distension, thyromegaly, or carotid bruits. Lungs are clear to auscultation. Cardiac exam reveals regular rate and Rhythm. Abdominal exam reveals normal bowel sounds, nontender, no organomegaly. Extremities are nonedematous and both femoral and pedal pulses are normal. QUILL FIXER: Right hemiplegia - Constitutional Vitals: Temp Pulse Resp BP Pulse Ox 97.5 F L 77 16 136/69 97 11/07/19 04:48 11/07/19 04:48 11/07/19 04:48 11/07/19 04:48 11/07/19 04:48 General appearance: Present: cachectic Results - Labs CBC & Chem 7: 11/05/19 14:40 11/07/19 10:26 Labs: Laboratory Last Values WBC 9.3 K/mm3 (4.5-11.0) 11/05/19 14:40 RBC 3.23 M/mm3 (3.65-5.03) L 11/05/19 14:40 Hgb 10.0 gm/dl (11.8-15.2) L 11/05/19 14:40 Hct 28.7 % (35.5-45.6) L 11/05/19 14:40 MCV 89 fl (84-94) 11/05/19 14:40 MCH 31 pg (28-32) 11/05/19 14:40 MCHC 35 % (32-34) H 11/05/19 14:40 RDW 15.9 % (13.2-15.2) H 11/05/19 14:40 Plt Count 158 K/mm3 (140-440) 11/05/19 14:40 Lymph % (Auto) 11.5 % (13.4-35.0) L 11/05/19 14:40 [place] % (Auto) 7.9 % (0.0-7.3) H 11/05/19 14:40 Eos % (Auto) 3.0 % (0.0-4.3) 11/05/19 14:40 Baso % (Auto) 0.7 % (0.0-1.8) 11/05/19 14:40 Lymph # 1.1 K/mm3 (1.2-5.4) L 11/05/19 14:40 [place] # 0.7 K/mm3 (0.0-0.8) 11/05/19 14:40 Eos # 0.3 K/mm3 (0.0-0.4) 11/05/19 14:40 Baso # 0.1 K/mm3 (0.0-0.1) 11/05/19 14:40 Seg Neutrophils % 76.9 % (40.0-70.0) H 11/05/19 14:40 Seg Neutrophils # 7.1 K/mm3 (1.8-7.7) 11/05/19 14:40 PT 14.8 Sec. (12.2-14.9) 11/05/19 14:40 INR 1.14 (0.87-1.13) H 11/05/19 14:40 APTT 30.4 Sec. (24.2-36.6) 11/05/19 14:40 Sodium 144 mmol/L (137-145) 11/06/19 05:07 Potassium 3.7 mmol/L (3.6-5.0) 11/06/19 05:07 Chloride 110.5 mmol/L (98-107) H 11/06/19 05:07 Carbon Dioxide 21 mmol/L (22-30) L 11/06/19 05:07 Anion Gap 16 mmol/L 11/06/19 05:07 BUN 29 mg/dL (9-20) H 11/06/19 05:07 Creatinine 1.4 mg/dL (0.8-1.3) H 11/06/19 05:07 Estimated GFR > 60 ml/min 11/06/19 05:07 BUN/Creatinine Ratio 21 % 11/06/19 05:07 Glucose 90 mg/dL (75-100) 11/06/19 05:07 POC Glucose 95 (70-105) 11/06/19 07:59 Lactic Acid 1.60 mmol/L (0.7-2.0) 11/05/19 14:40 Calcium 9.2 mg/dL (8.4-10.2) 11/06/19 05:07 Total Bilirubin 0.40 mg/dL (0.1-1.2) 11/05/19 14:40 AST 26 units/L (5-40) 11/05/19 14:40 ALT 24 units/L (7-56) 11/05/19 14:40 Alkaline Phosphatase 55 units/L (35-129) 11/05/19 14:40 Total Creatine Kinase 425 units/L (55-170) H 11/05/19 14:40 Total Protein 6.9 g/dL (6.3-8.2) 11/05/19 14:40 Albumin 3.6 g/dL (3.9-5) L 11/05/19 14:40 Albumin/Globulin Ratio 1.1 % 11/05/19 14:40 Urine Color Yellow (Yellow) 11/05/19 17:48 Urine Turbidity Clear (Clear) 11/05/19 17:48 Urine pH 5.0 (5.0-7.0) 11/05/19 17:48 Ur Specific [place] 1.018 (1.003-1.030) 11/05/19 17:48 Urine Protein <15 mg/dl mg/dL (Negative) 11/05/19 17:48 Urine Glucose (UA) 50 mg/dL (Negative) 11/05/19 17:48 Urine Ketones Neg mg/dL (Negative) 11/05/19 17:48 Urine Blood Lg (Negative) 11/05/19 17:48 Urine Nitrite Neg (Negative) 11/05/19 17:48 Urine Bilirubin Neg (Negative) 11/05/19 17:48 Urine Urobilinogen < 2.0 mg/dL (<2.0) 11/05/19 17:48 Ur Leukocyte Esterase Neg (Negative) 11/05/19 17:48 Urine WBC (Auto) 30.0 /HPF (0.0-6.0) H 11/05/19 17:48 Urine RBC (Auto) > 182.0 /HPF (0.0-6.0) 11/05/19 17:48 U Epithel Cells (Auto) < 1.0 /HPF (0-13.0) 11/05/19 17:48 Urine Bacteria (Auto) 1+ /HPF (Negative) 11/05/19 17:48 Urine Mucus Few /HPF 11/05/19 17:48 Salicylates < 0.3 mg/dL (2.8-20.0) L 11/05/19 14:40 Acetaminophen 5.0 ug/mL (10.0-30.0) L 11/05/19 14:40 Plasma/Serum Alcohol < 0.01 % (0-0.07) 11/05/19 14:40 Bellamy/IV: Voiding Method Indwelling Catheter IV Catheter Type [Left INT / Saline Lock Antecubital] Active Medications - Current Medications Current Medications: Generic Name Dose Route Start Last Admin Trade Name Freq PRN Reason Stop Dose Admin Acetaminophen 650 mg 11/05/19 19:12 Tylenol PO Q4H PRN Pain MILD(1-3)/Fever >100.5/REED Aspirin 81 mg 11/06/19 10:00 11/06/19 11:16 Halfprin Ec PO 81 mg QDAY NGOC Administration Atorvastatin Calcium 40 mg 11/05/19 22:00 11/06/19 21:00 Lipitor PO 40 mg QHS NGOC Administration Clopidogrel Bisulfate 75 mg 11/06/19 10:00 11/06/19 11:21 Plavix PO 75 mg QDAY NGOC Administration Heparin Sodium (Porcine) 5,000 unit 11/05/19 22:00 11/06/19 21:00 Heparin SUB-Q 5,000 unit Q12HR NGOC Administration Sodium Chloride 1,000 mls @ 100 mls/hr 11/05/19 19:15 Nacl 0.9% 1000 Ml IV DIRECT NGOC Ceftriaxone Sodium 1 gm in 50 mls @ 100 mls/hr 11/06/19 10:00 11/06/19 11:22 Rocephin/Ns 1 Gm/50 Ml IV 11/10/19 12:00 100 mls/hr Q24HR NGOC Administration Protocol Levetiracetam 500 mg 11/05/19 22:00 11/06/19 21:00 Keppra PO 500 mg BID NGOC Administration Nifedipine 60 mg 11/06/19 10:00 11/06/19 11:22 Procardia Xl PO 60 mg QDAY NGOC Administration Ondansetron HCl 4 mg 11/05/19 19:12 Zofran IV Q8H PRN Nausea And Vomiting Sodium Chloride 10 ml 11/05/19 22:00 11/06/19 21:00 Sodium Chloride Flush Syringe 10 Ml IV 10 ml BID NGOC Administration Sodium Chloride 10 ml 11/05/19 19:12 Sodium Chloride Flush Syringe 10 Ml IV PRN PRN LINE FLUSH Valsartan 80 mg 11/06/19 10:00 11/06/19 11:16 Diovan PO 80 mg QDAY NGOC Administration Nutrition/Malnutrition Assess - Dietary Evaluation Nutrition/Malnutrition Findings: Nutrition Notes Start: 11/06/19 12:05 Freq: Status: Active Protocol: Document 11/06/19 13:19 [email or web address] (Rec: 11/06/19 13:48 [email or web address]) Co-Sign 11/06/19 13:19 LM Nutrition Notes Need for Assessment 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 Spoke with RN about intakes. Pt picking at food and hasnt eaten a full meal. Sha Score 12 but pt has no wound. Burn Absent Trauma Absent GI Symptoms None Food Allergy No Current % PO Poor (25-49%) Minimum of two criteria No Reduced Senior Commissions Analyst Strength Measurably Reduced (severe) #1 Nutrition Diagnosis Inadequate oral intake Etiology CVA, dementia As Evidenced by Signs and Symptoms pt picking at food Is patient on ventilator? No Is Patient Ambulatory and/or Out of Bed No REE-([facility]-confined to bed) 9530.011 Calculation Used for Recommendations [facility] Additional Notes Protein Needs (1-1.2g/kg) 69- 83g Fluid 1ml/kcal Nutrition Intervention Change Diet Order: Continue Add Supplement/Snack (indicate name/kcal Ensure Enlive BID /protein ) Provides kCal: 700 Provides Protein (gm) 40 Goal #1 Meet at least 75% of energy and protein needs Anticipated Discharge Needs: [facility] Diet Follow-Up By: 11/08/19 Additional Comments F/U for intake and ONS tolerance
[2019-11-07] MEDS: cefTRIAXone/NS 1 GM/50 ML 1 GM/50 ML BAG IV SCH (08:54)
[2019-11-07] MEDS: HEPARIN 5,000 UNIT/1 ML VIAL SUB-Q SCH ×2 (08:54→21:15)
[2019-11-07] MEDS: CLOPIDOGREL 75 MG TAB PO SCH (08:55)
[2019-11-07] MEDS: VALSARTAN 40 MG TAB PO SCH (08:55)
[2019-11-07] MEDS: levETIRAcetam 500 MG TAB PO SCH ×2 (08:55→21:15)
[2019-11-07] MEDS: NIFEdipine XL 60 MG TAB PO SCH (08:56)
[2019-11-07] MEDS: ASPIRIN EC 81 MG TAB PO SCH (08:56)
[2019-11-07 11:02] LABS: Calcium 9.2 mg/dL (8.4-10.2)
--- NOTE | 2019-11-08 07:16 | Progress Note ---
Assessment and Plan Assessment and plan: (1) Metabolic encephalopathy Current Visit: Yes Status: Acute Plan to address problem: CT head is negative, neuro check, seizure precautions, aspiration cautions, fall precautions, IV fluid resuscitation therapy. History of of CVA with residual right-sided hemiplegia Resolved Hypertension -Patient is on Procardia -Blood pressure is uncontrolled -We will stop his IV fluid (2) Urinary tract infection ruled out Current Visit: Yes Status: Acute Qualifiers: Encounter type: initial encounter Plan to address problem: Urinalysis is suggestive of UTI and urine culture is negative, and will stop the IV Rocephin (3) Acute kidney injury (CHAN) with acute tubular necrosis (ATN) Current Visit: Yes Status: Acute Plan to address problem: -Resolved -Staff IV fluid (4) Volume depletion Current Visit: Yes Status: Acute Plan to address problem: -Corrected and stops IV fluid (5) Vascular dementia Current Visit: Yes Status: Acute Qualifiers: Dementia behavioral disturbance: without behavioral disturbance Qualified Code(s): F01.50 - Vascular dementia without behavioral disturbance Plan to address problem: Supportive care (6) Cerebral atherosclerosis Current Visit: Yes Status: Acute Plan to address problem: Supportive care, continue medical management, risk factor reduction. (7) DVT prophylaxis Current Visit: Yes Status: Acute Plan to address problem: SCD to bilateral lower extremities while in bed, prophylactic anticoagulation (8) Advance care planning Current Visit: Yes Status: Acute Plan to address problem: Disease education conducted, patient caregiver knowledges understanding and agreement with care plan, prognosis discussed. Disposition; PT OT evaluated and recommended subacute rehab. Will discuss with case management. History Interval history: Patient was seen and evaluated this morning Patient is oriented to self and place Patient answer questions slow to answer Patient said he had history of CVA with residual right-sided weakness Hospitalist Physical - Physical exam Narrative exam: Not in cardiopulmonary distress. The patient appeared well nourished and normally developed. Vital signs as documented. Head exam is unremarkable. No scleral icterus . Neck is without jugular venous distension, thyromegaly, or carotid bruits. Lungs are clear to auscultation. Cardiac exam reveals regular rate and Rhythm. Abdominal exam reveals normal bowel sounds, nontender, no organomegaly. Extremities are nonedematous and both femoral and pedal pulses are normal. 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 - Constitutional Vitals: Temp Pulse Resp BP Pulse Ox 98.2 F 87 20 153/91 98 11/08/19 06:16 11/08/19 06:16 11/08/19 06:16 11/08/19 06:16 11/08/19 06:16 General appearance: Present: cachectic Results - Labs CBC & Chem 7: 11/05/19 14:40 11/07/19 10:26 Labs: Laboratory Last Values WBC 9.3 K/mm3 (4.5-11.0) 11/05/19 14:40 RBC 3.23 M/mm3 (3.65-5.03) L 11/05/19 14:40 Hgb 10.0 gm/dl (11.8-15.2) L 11/05/19 14:40 Hct 28.7 % (35.5-45.6) L 11/05/19 14:40 MCV 89 fl (84-94) 11/05/19 14:40 MCH 31 pg (28-32) 11/05/19 14:40 MCHC 35 % (32-34) H 11/05/19 14:40 RDW 15.9 % (13.2-15.2) H 11/05/19 14:40 Plt Count 158 K/mm3 (140-440) 11/05/19 14:40 Lymph % (Auto) 11.5 % (13.4-35.0) L 11/05/19 14:40 [place] % (Auto) 7.9 % (0.0-7.3) H 11/05/19 14:40 Eos % (Auto) 3.0 % (0.0-4.3) 11/05/19 14:40 Baso % (Auto) 0.7 % (0.0-1.8) 11/05/19 14:40 Lymph # 1.1 K/mm3 (1.2-5.4) L 11/05/19 14:40 [place] # 0.7 K/mm3 (0.0-0.8) 11/05/19 14:40 Eos # 0.3 K/mm3 (0.0-0.4) 11/05/19 14:40 Baso # 0.1 K/mm3 (0.0-0.1) 11/05/19 14:40 Seg Neutrophils % 76.9 % (40.0-70.0) H 11/05/19 14:40 Seg Neutrophils # 7.1 K/mm3 (1.8-7.7) 11/05/19 14:40 PT 14.8 Sec. (12.2-14.9) 11/05/19 14:40 INR 1.14 (0.87-1.13) H 11/05/19 14:40 APTT 30.4 Sec. (24.2-36.6) 11/05/19 14:40 Sodium 147 mmol/L (137-145) H 11/07/19 10:26 Potassium 3.9 mmol/L (3.6-5.0) 11/07/19 10:26 Chloride 111.8 mmol/L (98-107) H 11/07/19 10:26 Carbon Dioxide 23 mmol/L (22-30) 11/07/19 10:26 Anion Gap 16 mmol/L 11/07/19 10:26 BUN 28 mg/dL (9-20) H 11/07/19 10:26 Creatinine 1.6 mg/dL (0.8-1.3) H 11/07/19 10:26 Estimated GFR 53 ml/min 11/07/19 10:26 BUN/Creatinine Ratio 18 % 11/07/19 10:26 Glucose 104 mg/dL (75-100) H 11/07/19 10:26 POC Glucose 95 (70-105) 11/06/19 07:59 Lactic Acid 1.60 mmol/L (0.7-2.0) 11/05/19 14:40 Calcium 9.2 mg/dL (8.4-10.2) 11/07/19 10:26 Total Bilirubin 0.40 mg/dL (0.1-1.2) 11/05/19 14:40 AST 26 units/L (5-40) 11/05/19 14:40 ALT 24 units/L (7-56) 11/05/19 14:40 Alkaline Phosphatase 55 units/L (35-129) 11/05/19 14:40 Total Creatine Kinase 425 units/L (55-170) H 11/05/19 14:40 Total Protein 6.9 g/dL (6.3-8.2) 11/05/19 14:40 Albumin 3.6 g/dL (3.9-5) L 11/05/19 14:40 Albumin/Globulin Ratio 1.1 % 11/05/19 14:40 Urine Color Yellow (Yellow) 11/05/19 17:48 Urine Turbidity Clear (Clear) 11/05/19 17:48 Urine pH 5.0 (5.0-7.0) 11/05/19 17:48 Ur Specific [place] 1.018 (1.003-1.030) 11/05/19 17:48 Urine Protein <15 mg/dl mg/dL (Negative) 11/05/19 17:48 Urine Glucose (UA) 50 mg/dL (Negative) 11/05/19 17:48 Urine Ketones Neg mg/dL (Negative) 11/05/19 17:48 Urine Blood Lg (Negative) 11/05/19 17:48 Urine Nitrite Neg (Negative) 11/05/19 17:48 Urine Bilirubin Neg (Negative) 11/05/19 17:48 Urine Urobilinogen < 2.0 mg/dL (<2.0) 11/05/19 17:48 Ur Leukocyte Esterase Neg (Negative) 11/05/19 17:48 Urine WBC (Auto) 30.0 /HPF (0.0-6.0) H 11/05/19 17:48 Urine RBC (Auto) > 182.0 /HPF (0.0-6.0) 11/05/19 17:48 U Epithel Cells (Auto) < 1.0 /HPF (0-13.0) 11/05/19 17:48 Urine Bacteria (Auto) 1+ /HPF (Negative) 11/05/19 17:48 Urine Mucus Few /HPF 11/05/19 17:48 Salicylates < 0.3 mg/dL (2.8-20.0) L 11/05/19 14:40 Acetaminophen 5.0 ug/mL (10.0-30.0) L 11/05/19 14:40 Plasma/Serum Alcohol < 0.01 % (0-0.07) 11/05/19 14:40 Microbiology: Microbiology 11/05/19 17:48 Urine,Clean Catch Urine Culture - Preliminary NO GROWTH AFTER 24 HOURS Bellamy/IV: Voiding Method Indwelling Catheter IV Catheter Type [Left INT / Saline Lock Antecubital] Active Medications - Current Medications Current Medications: Generic Name Dose Route Start Last Admin Trade Name Freq PRN Reason Stop Dose Admin Acetaminophen 650 mg 11/05/19 19:12 Tylenol PO Q4H PRN Pain MILD(1-3)/Fever >100.5/REED Aspirin 81 mg 11/06/19 10:00 11/07/19 08:56 Halfprin Ec PO 81 mg QDAY NGOC Administration Atorvastatin Calcium 40 mg 11/05/19 22:00 11/07/19 21:14 Lipitor PO 40 mg QHS NGOC Administration Clopidogrel Bisulfate 75 mg 11/06/19 10:00 11/07/19 08:55 Plavix PO 75 mg QDAY NGOC Administration Heparin Sodium (Porcine) 5,000 unit 11/05/19 22:00 11/07/19 21:15 Heparin SUB-Q 5,000 unit Q12HR NGOC Administration Levetiracetam 500 mg 11/05/19 22:00 11/07/19 21:15 Keppra PO 500 mg BID NGOC Administration Nifedipine 60 mg 11/06/19 10:00 11/07/19 08:56 Procardia Xl PO 60 mg QDAY NGOC Administration Ondansetron HCl 4 mg 11/05/19 19:12 Zofran IV Q8H PRN Nausea And Vomiting Sodium Chloride 10 ml 11/05/19 22:00 11/07/19 08:57 Sodium Chloride Flush Syringe 10 Ml IV 10 ml BID NGOC Administration Sodium Chloride 10 ml 11/05/19 19:12 Sodium Chloride Flush Syringe 10 Ml IV PRN PRN LINE FLUSH Valsartan 80 mg 11/06/19 10:00 11/07/19 08:55 Diovan PO 80 mg QDAY NGOC Administration Nutrition/Malnutrition Assess - Dietary Evaluation Nutrition/Malnutrition Findings: Nutrition Notes Start: 11/06/19 12:05 Freq: Status: Active Protocol: Document 11/06/19 13:19 [email or web address] (Rec: 11/06/19 13:48 [email or web address]) Co-Sign 11/06/19 13:19 LM Nutrition Notes Need for Assessment generated from: fresh foods technician,MST Initial or Follow up Assessment Current Diagnosis Acute Kidney Injury,Diabetes, Hypertension,Stroke Other Pertinent Diagnosis Vascular dementia, UTI, metabolic encephalopathy, seizure disorder Current Diet Cardiac Labs/Tests BUN 29 CR 1.4 Pertinent Medications Reviewed Height 6 ft 1 in Weight 68.8 kg [place] Body Weight (kg) 83.63 BMI 20.0 Weight Status Appropriate Subjective/Other Information Consulted for MST screen and Skin Risk Assessment. Spoke with RN about intakes. Pt picking at food and hasnt eaten a full meal. Sha Score 12 but pt has no wound. 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 No Is Patient Ambulatory and/or Out of Bed No REE-([facility]-confined to bed) 5116.282 Calculation Used for Recommendations [facility] Additional Notes Protein Needs (1-1.2g/kg) 69- 83g Fluid 1ml/kcal Nutrition Intervention Change Diet Order: Continue Add Supplement/Snack (indicate name/kcal Ensure Enlive BID /protein ) Provides kCal: 700 Provides Protein (gm) 40 Goal #1 Meet at least 75% of energy and protein needs Anticipated Discharge Needs: [facility] Diet Follow-Up By: 11/08/19 Additional Comments F/U for intake and ONS tolerance
[2019-11-08] MEDS: NIFEdipine XL 60 MG TAB PO SCH (12:01)
[2019-11-08] MEDS: ASPIRIN EC 81 MG TAB PO SCH (12:01)
[2019-11-08] MEDS: CLOPIDOGREL 75 MG TAB PO SCH (12:01)
[2019-11-08] MEDS: HEPARIN 5,000 UNIT/1 ML VIAL SUB-Q SCH (12:02)
[2019-11-08] MEDS: VALSARTAN 40 MG TAB PO SCH ×2 (12:05→12:07)
[2019-11-08] MEDS: levETIRAcetam 500 MG TAB PO SCH ×3 (12:05→21:41)
[2019-11-08] MEDS: SODIUM CHLORIDE 0.9% 1000 ML 1,000 ML IV SCH ×2 (12:06→12:07)
--- NOTE | 2019-11-09 09:04 | Discharge Summary ---
Providers - Providers Date of Admission: 11/05/19 19:12 Date of discharge: 11/09/19 Attending physician: BARB MCCONNELL MD 11/05/19 19:57 Consult to Case Management [CONS] Routine Services Needed at Discharge: School Lunch Monitor Notified:: In a.m. Additional Physician Instructions: Discharge planning/placement. 11/06/19 09:22 Physical Therapy Evaluation and Treat [CONS] Routine Comment: Reason For Exam: right sided weakness 11/06/19 09:23 Occupational Therapy Evaluate and Treat [CONS] Routine Comment: Reason For Exam: right sided weakness Primary care physician: EM WILSON MD Hospitalization Condition: Stable Disposition: [id number]/[place]-06 HOME UNDER HOME [facility] Time spent for discharge: 32 minutes - Discharge Diagnoses (1) Acute kidney injury (CHAN) with acute tubular necrosis (ATN) Status: Acute (2) History of CVA with residual deficit Status: Acute (3) Metabolic encephalopathy Status: Acute Core Measure Documentation - Palliative Care Palliative Care/ Comfort Measures: Not Applicable - Core Measures Any of the following diagnoses?: none Exam - Physical Exam Narrative exam: Not in cardiopulmonary distress. The patient appeared well nourished and normally developed. Vital signs as documented. Head exam is unremarkable. No scleral icterus . Neck is without jugular venous distension, thyromegaly, or carotid bruits. Lungs are clear to auscultation. Cardiac exam reveals regular rate and Rhythm. Abdominal exam reveals normal bowel sounds, nontender, no organomegaly. Extremities are nonedematous and both femoral and pedal pulses are normal. 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
[2019-11-09 12:00] LABS: BUN/Creatinine Ratio 19; Blood Urea Nitrogen 27 mg/dL (9-20); Calcium 9.5 mg/dL (8.4-10.2); Hemolysis Index 0
--- NOTE | 2019-11-09 12:06 | Progress Note ---
Assessment and Plan Assessment and plan: (1) Metabolic encephalopathy Current Visit: Yes Status: Acute Plan to address problem: CT head is negative, neuro check, seizure precautions, aspiration cautions, fall precautions, IV fluid resuscitation therapy. History of of CVA with residual right-sided hemiplegia Resolved Hypertension -Patient is on Procardia -Blood pressure is uncontrolled -We will stop his IV fluid (2) Urinary tract infection ruled out Current Visit: Yes Status: Acute Qualifiers: Encounter type: initial encounter Plan to address problem: Urinalysis is suggestive of UTI and urine culture is negative, and will stop the IV Rocephin (3) Acute kidney injury (CHAN) with acute tubular necrosis (ATN) Current Visit: Yes Status: Acute Plan to address problem: -Resolved Hypernatremia -Sodium this morning is 151 -Start the patient on D5W and encourage water intake (4) Volume depletion Current Visit: Yes Status: Acute Plan to address problem: -Corrected and stops IV fluid (5) Vascular dementia Current Visit: Yes Status: Acute Qualifiers: Dementia behavioral disturbance: without behavioral disturbance Qualified Code(s): F01.50 - Vascular dementia without behavioral disturbance Plan to address problem: Supportive care (6) Cerebral atherosclerosis Current Visit: Yes Status: Acute Plan to address problem: Supportive care, continue medical management, risk factor reduction. (7) DVT prophylaxis Current Visit: Yes Status: Acute Plan to address problem: SCD to bilateral lower extremities while in bed, prophylactic anticoagulation (8) Advance care planning Current Visit: Yes Status: Acute Plan to address problem: Disease education conducted, patient caregiver knowledges understanding and agreement with care plan, prognosis discussed. Disposition; PT OT evaluated and recommended subacute rehab. Will discuss with case management. - Patient Problems (1) Acute kidney injury (CHAN) with acute tubular necrosis (ATN) Current Visit: Yes Status: Acute (2) History of CVA with residual deficit Current Visit: Yes Status: Acute (3) Metabolic encephalopathy Current Visit: Yes Status: Acute History Interval history: Patient was seen and evaluated this morning Patient is oriented to self and place Patient answer questions slow to answer Patient said he had history of CVA with residual right-sided weakness Hospitalist Physical - Constitutional Vitals: Temp Pulse Resp BP Pulse Ox 98.7 F 87 20 187/95 98 11/09/19 05:27 11/09/19 06:51 11/09/19 05:27 11/09/19 06:51 11/09/19 05:27 General appearance: Present: cachectic Results - Labs CBC & Chem 7: 11/05/19 14:40 11/09/19 10:31 Labs: Laboratory Last Values WBC 9.3 K/mm3 (4.5-11.0) 11/05/19 14:40 RBC 3.23 M/mm3 (3.65-5.03) L 11/05/19 14:40 Hgb 10.0 gm/dl (11.8-15.2) L 11/05/19 14:40 Hct 28.7 % (35.5-45.6) L 11/05/19 14:40 MCV 89 fl (84-94) 11/05/19 14:40 MCH 31 pg (28-32) 11/05/19 14:40 MCHC 35 % (32-34) H 11/05/19 14:40 RDW 15.9 % (13.2-15.2) H 11/05/19 14:40 Plt Count 158 K/mm3 (140-440) 11/05/19 14:40 Lymph % (Auto) 11.5 % (13.4-35.0) L 11/05/19 14:40 [place] % (Auto) 7.9 % (0.0-7.3) H 11/05/19 14:40 Eos % (Auto) 3.0 % (0.0-4.3) 11/05/19 14:40 Baso % (Auto) 0.7 % (0.0-1.8) 11/05/19 14:40 Lymph # 1.1 K/mm3 (1.2-5.4) L 11/05/19 14:40 [place] # 0.7 K/mm3 (0.0-0.8) 11/05/19 14:40 Eos # 0.3 K/mm3 (0.0-0.4) 11/05/19 14:40 Baso # 0.1 K/mm3 (0.0-0.1) 11/05/19 14:40 Seg Neutrophils % 76.9 % (40.0-70.0) H 11/05/19 14:40 Seg Neutrophils # 7.1 K/mm3 (1.8-7.7) 11/05/19 14:40 PT 14.8 Sec. (12.2-14.9) 11/05/19 14:40 INR 1.14 (0.87-1.13) H 11/05/19 14:40 APTT 30.4 Sec. (24.2-36.6) 11/05/19 14:40 Sodium 151 mmol/L (137-145) H 11/09/19 10:31 Potassium 3.8 mmol/L (3.6-5.0) 11/09/19 10:31 Chloride 114.3 mmol/L (98-107) H 11/09/19 10:31 Carbon Dioxide 21 mmol/L (22-30) L 11/09/19 10:31 Anion Gap 20 mmol/L 11/09/19 10:31 BUN 27 mg/dL (9-20) H 11/09/19 10:31 Creatinine 1.4 mg/dL (0.8-1.3) H 11/09/19 10:31 Estimated GFR > 60 ml/min 11/09/19 10:31 BUN/Creatinine Ratio 19 % 11/09/19 10:31 Glucose 105 mg/dL (75-100) H 11/09/19 10:31 POC Glucose 95 (70-105) 11/06/19 07:59 Lactic Acid 1.60 mmol/L (0.7-2.0) 11/05/19 14:40 Calcium 9.5 mg/dL (8.4-10.2) 11/09/19 10:31 Total Bilirubin 0.40 mg/dL (0.1-1.2) 11/05/19 14:40 AST 26 units/L (5-40) 11/05/19 14:40 ALT 24 units/L (7-56) 11/05/19 14:40 Alkaline Phosphatase 55 units/L (35-129) 11/05/19 14:40 Total Creatine Kinase 425 units/L (55-170) H 11/05/19 14:40 Total Protein 6.9 g/dL (6.3-8.2) 11/05/19 14:40 Albumin 3.6 g/dL (3.9-5) L 11/05/19 14:40 Albumin/Globulin Ratio 1.1 % 11/05/19 14:40 Urine Color Yellow (Yellow) 11/05/19 17:48 Urine Turbidity Clear (Clear) 11/05/19 17:48 Urine pH 5.0 (5.0-7.0) 11/05/19 17:48 Ur Specific [place] 1.018 (1.003-1.030) 11/05/19 17:48 Urine Protein <15 mg/dl mg/dL (Negative) 11/05/19 17:48 Urine Glucose (UA) 50 mg/dL (Negative) 11/05/19 17:48 Urine Ketones Neg mg/dL (Negative) 11/05/19 17:48 Urine Blood Lg (Negative) 11/05/19 17:48 Urine Nitrite Neg (Negative) 11/05/19 17:48 Urine Bilirubin Neg (Negative) 11/05/19 17:48 Urine Urobilinogen < 2.0 mg/dL (<2.0) 11/05/19 17:48 Ur Leukocyte Esterase Neg (Negative) 11/05/19 17:48 Urine WBC (Auto) 30.0 /HPF (0.0-6.0) H 11/05/19 17:48 Urine RBC (Auto) > 182.0 /HPF (0.0-6.0) 11/05/19 17:48 U Epithel Cells (Auto) < 1.0 /HPF (0-13.0) 11/05/19 17:48 Urine Bacteria (Auto) 1+ /HPF (Negative) 11/05/19 17:48 Urine Mucus Few /HPF 11/05/19 17:48 Salicylates < 0.3 mg/dL (2.8-20.0) L 11/05/19 14:40 Acetaminophen 5.0 ug/mL (10.0-30.0) L 11/05/19 14:40 Plasma/Serum Alcohol < 0.01 % (0-0.07) 11/05/19 14:40 Microbiology: Microbiology 11/05/19 17:48 Urine,Clean Catch Urine Culture - Final NO GROWTH AFTER 48 HOURS Bellamy/IV: Voiding Method Indwelling Catheter IV Catheter Type [Left INT / Saline Lock Antecubital] Active Medications - Current Medications Current Medications: Generic Name Dose Route Start Last Admin Trade Name Freq PRN Reason Stop Dose Admin Acetaminophen 650 mg 11/05/19 19:12 Tylenol PO Q4H PRN Pain MILD(1-3)/Fever >100.5/REED Aspirin 81 mg 11/06/19 10:00 11/08/19 12:01 Halfprin Ec PO 81 mg QDAY NGOC Administration Atorvastatin Calcium 40 mg 11/05/19 22:00 11/08/19 21:41 Lipitor PO 40 mg QHS NGOC Administration Clopidogrel Bisulfate 75 mg 11/06/19 10:00 11/08/19 12:01 Plavix PO 75 mg QDAY NGOC Administration Heparin Sodium (Porcine) 5,000 unit 11/05/19 22:00 11/08/19 12:02 Heparin SUB-Q 5,000 unit Q12HR NGOC Administration Sodium Chloride 1,000 mls @ 100 mls/hr 11/08/19 11:45 11/08/19 12:07 Nacl 0.9% 1000 Ml IV 100 mls/hr DIRECT NGOC Administration Dextrose 1,000 mls @ 75 mls/hr 11/09/19 13:00 D5w IV DIRECT NGOC Levetiracetam 500 mg 11/05/19 22:00 11/08/19 21:41 Keppra PO 500 mg BID NGOC Administration Nifedipine 60 mg 11/06/19 10:00 11/08/19 12:01 Procardia Xl PO 60 mg QDAY NGOC Administration Ondansetron HCl 4 mg 11/05/19 19:12 Zofran IV Q8H PRN Nausea And Vomiting Sodium Chloride 10 ml 11/05/19 22:00 11/08/19 21:42 Sodium Chloride Flush Syringe 10 Ml IV 10 ml BID NGOC Administration Sodium Chloride 10 ml 11/05/19 19:12 Sodium Chloride Flush Syringe 10 Ml IV PRN PRN LINE FLUSH Valsartan 80 mg 11/06/19 10:00 11/08/19 12:07 Diovan PO 80 mg QDAY NGOC Administration Nutrition/Malnutrition Assess - Dietary Evaluation Nutrition/Malnutrition Findings: Nutrition Notes Start: 11/06/19 12:05 Freq: Status: Active Protocol: Document 11/08/19 12:25 [email or web address] (Rec: 11/08/19 12:55 [email or web address]) Co-Sign 11/08/19 12:25 LM Nutrition Notes Initial or Follow up Reassessment Current Diagnosis Acute Kidney Injury,Diabetes, Hypertension,Stroke Other Pertinent Diagnosis Vascular dementia, UTI, metabolic encephalopathy, seizure disorder Current Diet Cardiac Labs/Tests Na 147 BG 104 BUN 28 Cr 1.6 Pertinent Medications Reviewed Height 6 ft 1 in Weight 66.2 kg [place] Body Weight (kg) 83.63 BMI 19.2 Weight Status Appropriate Subjective/Other Information Follow up for Intakes and ONS tolerance . Per RN, pt is consuming half of meals and drank the Ensure supplement. Pt has right side weakness. 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 No Is Patient Ambulatory and/or Out of Bed No REE-([facility]-confined to bed) 1818.300 Calculation Used for Recommendations [facility] Additional Notes Protein Needs (1-1.2g/kg) 69- 83g Fluid 1ml/kcal Nutrition Intervention Change Diet Order: Continue Add Supplement/Snack (indicate name/kcal Ensure Enlive BID /protein ) Provides kCal: 700 Provides Protein (gm) 40 Goal #1 Meet at least 75% of energy and protein needs Anticipated Discharge Needs: [facility] Diet Follow-Up By: 11/13/19 Additional Comments F/U for intakes
[2019-11-09] MEDS: ASPIRIN EC 81 MG TAB PO SCH ×2 (12:07→12:13)
[2019-11-09] MEDS: VALSARTAN 40 MG TAB PO SCH (12:08)
[2019-11-09] MEDS: NIFEdipine XL 60 MG TAB PO SCH ×2 (12:08→12:09)
[2019-11-09] MEDS: CLOPIDOGREL 75 MG TAB PO SCH ×2 (12:10→12:12)
[2019-11-09] MEDS: levETIRAcetam 500 MG TAB PO SCH ×2 (12:10→21:16)
[2019-11-09] MEDS: HEPARIN 5,000 UNIT/1 ML VIAL SUB-Q SCH ×3 (12:10→21:16)
[2019-11-09] MEDS ORDERED: DEXTROSE 5% IN WATER 1,000 ML IV SCH (13:00)
[2019-11-10 05:39] LABS: BUN/Creatinine Ratio 17; Blood Urea Nitrogen 20 mg/dL (9-20); Calcium 9.3 mg/dL (8.4-10.2); Hemolysis Index 0
[2019-11-10] MEDS ORDERED: POTASSIUM CHLORIDE ER 20 MEQ TAB PO ONE (08:46)
--- NOTE | 2019-11-10 08:48 | Discharge Summary ---
Providers - Providers Date of Admission: 11/05/19 19:12 Date of discharge: 11/10/19 Attending physician: BARB MCCONNELL MD 11/05/19 19:57 Consult to Case Management [CONS] Routine Services Needed at Discharge: [employer] Notified:: In a.m. Additional Physician Instructions: Discharge planning/placement. 11/06/19 09:22 Physical Therapy Evaluation and Treat [CONS] Routine Comment: Reason For Exam: right sided weakness 11/06/19 09:23 Occupational Therapy Evaluate and Treat [CONS] Routine Comment: Reason For Exam: right sided weakness Primary care physician: AUDIT SPECIALIST Hospitalization Reason for admission: Acute metabolic encephalopathy, acute renal insufficiency, history of CVA Condition: Stable Hospital course: 64 YO Male with CVA with RHP on DAPT, HTN, HLD, Seizure Disorder, Vascular Dementia, Cerebral Atherosclerosis presents to ED for evaluation. Patient is confused with cognitive slowing and is unable to provide history. Patient history provided by ED staff, EMS staff, and forging die finisher. As per forging die finisher the patient was found to have increased confusion today. EMS was notified and upon arrival the patient was found to be in distress and subsequently transported to [facility] for further evaluation and care. Patient seen and evaluated in the emergency department. Lab and imaging studies reviewed. Patient found to have metabolic encephalopathy suspected secondary to urinary tract infection, as well as acute kidney injury secondary to volume depletion. Patient admitted to medical floor and treated with IV fluid resuscitation therapy as well as IV antibiotic therapy. Prior admission on 10/21/2019 reviewed. All medication listed at time of admission has been reconciled. No further history is obtainable. Patient is confused at the time of my exam but has a positive gag reflex and is able to protect his airway without difficulty. Advanced care planning conducted in ED. (1) Metabolic encephalopathy Current Visit: Yes Status: Acute Plan to address problem: CT head is negative, neuro check, seizure precautions, aspiration cautions, fall precautions, IV fluid resuscitation therapy. History of of CVA with residual right-sided hemiplegia Metabolic encephalopathy resolved and patient was at baseline at the time of discharge Hypertension -Continue home medications and blood pressures controlled (2) Urinary tract infection ruled out Current Visit: Yes Status: Acute Qualifiers: Encounter type: initial encounter Plan to address problem: Urinalysis is suggestive of UTI and urine culture is negative, stopped IV Rocephin (3) Acute kidney injury (CHAN) with acute tubular necrosis (ATN) Current Visit: Yes Status: Acute Plan to address problem: -Resolved Hypernatremia -Resolved with with D5W and increase water intake. (4) Volume depletion Current Visit: Yes Status: Acute Plan to address problem: -Corrected and stops IV fluid (5) Vascular dementia Current Visit: Yes Status: Acute Qualifiers: Dementia behavioral disturbance: without behavioral disturbance Qualified Code(s): F01.50 - Vascular dementia without behavioral disturbance Plan to address problem: Supportive care (6) Cerebral atherosclerosis Current Visit: Yes Status: Acute Plan to address problem: Supportive care, continue medical management, risk factor reduction. Disposition; PT OT evaluated and recommended subacute rehab. Discussed with case management and patient is unfunded and will go back to personal home care with home health PT OT. Disposition: DC/[place]- HOME UNDER [facility] Time spent for discharge: 32 minutes - Discharge Diagnoses (1) Acute kidney injury (CHAN) with acute tubular necrosis (ATN) Status: Acute (2) History of CVA with residual deficit Status: Acute (3) Metabolic encephalopathy Status: Acute (4) Metabolic encephalopathy Status: Acute (5) Dehydration Status: Acute (6) Mild renal insufficiency Status: Acute (7) Vascular dementia Status: Acute Qualifiers: Dementia behavioral disturbance: without behavioral disturbance Qualified Code(s): F01.50 - Vascular dementia without behavioral disturbance Core Measure Documentation - Palliative Care Palliative Care/ Comfort Measures: Not Applicable - Core Measures Any of the following diagnoses?: none Exam - Physical Exam Narrative exam: Not in cardiopulmonary distress. The patient appeared well nourished and normally developed. Vital signs as documented. Head exam is unremarkable. No scleral icterus . Neck is without jugular venous distension, thyromegaly, or carotid bruits. Lungs are clear to auscultation. Cardiac exam reveals regular rate and Rhythm. Abdominal exam reveals normal bowel sounds, nontender, no organomegaly. Extremities are nonedematous and both femoral and pedal pulses are normal. DATA CONSULTANT: Right hemiplegia - Constitutional Vitals: Temp Pulse Resp BP Pulse Ox 98.7 F 66 20 174/85 100 11/10/19 05:18 11/10/19 05:18 11/10/19 05:18 11/10/19 05:18 11/10/19 05:18 Plan Activity: advance as tolerated Weight Bearing Status: Weight Bear as Tolerated Diet: low cholesterol, low salt Follow up with: PRIMARY CARE, [Primary Care Provider] - 7 Days
[2019-11-10 11:10] VITALS: BP 155/88
[2019-11-10] MEDS: levETIRAcetam 500 MG TAB PO SCH (11:18)
[2019-11-10] MEDS: NIFEdipine XL 60 MG TAB PO SCH (11:18)
[2019-11-10] MEDS: ASPIRIN EC 81 MG TAB PO SCH (11:18)
[2019-11-10] MEDS: CLOPIDOGREL 75 MG TAB PO SCH (11:19)
[2019-11-10] MEDS: VALSARTAN 40 MG TAB PO SCH (11:19)
[2019-11-10] MEDS: HEPARIN 5,000 UNIT/1 ML VIAL SUB-Q SCH (11:20)
== END 2019-11-10 15:45 | disposition home health service (06) | DRG 70 ==
LOC: ED 13:56 → 3A 19:12
PROVIDERS: ADMIT Internal Medicine; ATTEND Internal Medicine
DX: G93.41 Metabolic encephalopathy (principal); N17.0 Acute kidney failure with tubular necrosis; R64 Cachexia; Z68.1 Body mass index [BMI] 19.9 or less, adult; E87.0 Hyperosmolality and hypernatremia; I69.351 Hemiplegia and hemiparesis following cerebral infarction affecting right dominant side; E86.9 Volume depletion, unspecified; I10 Essential (primary) hypertension; Z79.82 Long term (current) use of aspirin; E86.0 Dehydration; E11.9 Type 2 diabetes mellitus without complications; Z82.49 Family history of ischemic heart disease and other diseases of the circulatory system; E78.5 Hyperlipidemia, unspecified; F01.50 Vascular dementia, unspecified severity, without behavioral disturbance, psychotic disturbance, mood disturbance, and anxiety; G40.909 Epilepsy, unspecified, not intractable, without status epilepticus; I67.2 Cerebral atherosclerosis; Z71.89 Other specified counseling
CPT/HCPCS: 36415; 70450; 71045; 80048; 80053; 80320; 81001; 82140; 82550; 82962; 85025; 85610; 85730; 87086; 96361; 96365; G0378; A9270-GY; G0480; J0696; J1644; J7030; J7070